=== PATIENT | female | born 2000 | race Caucasian/White ===

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

== ENCOUNTER → 2019-11-06 15:19 | Outpatient (CLI) | payer BC, SELFPAY ==
[2019-11-06 18:45] LABS: HCG,Quantitative 338 mIU/ml (0-5.42)
== END ==
PROVIDERS: PCP Physician Assistant; Visit Provider Nurse Practitioner Obstetrics & Gynecology
DX: N92.6 Irregular menstruation, unspecified (principal)
CPT/HCPCS: 36415; 84702

== ENCOUNTER → 2019-12-12 11:00 | Outpatient (CLI) | payer BC, SELFPAY ==
[2019-12-12 12:41] LABS: Basophils % 0.3 % (0.1-2.0); Eosinophils # 0.1 K/mm3 (0.0-0.4); Hematocrit 39.4 % (37.0-47.0); Hemoglobin 13.1 g/dL (12.2-16.2); Lymphocytes # 1.8 K/mm3 (0.7-4.5); Lymphocytes % 16.6 % (10-50); Mean Corpuscular HGB Conc 33.3 g/dL (31.8-35.4); Mean Corpuscular Hemoglobin 29.8 pg (27.0-31.2); Mean Corpuscular Volume 89.3 fl (81-99); Mean Platelet Volume 7.8 fl (7.4-10.4); Monocytes # 0.6 K/mm3 (0.1-1.0); Monocytes % 5.5 % (1.7-9.3); Neutrophils # 8.2 K/mm3 (1.8-7.8); Neutrophils % 76.5 % (37.0-80.0); Platelet Count 286 K/mm3 (142-424); Red Blood Count 4.41 M/mm3 (4.20-5.40); Red Cell Distribution Width 12.3 % (11.5-17.5); White Blood Count 10.7 K/mm3 (4.5-13.0)
[2019-12-13 06:18] LABS: HIV Screen 4th Generation wRfx Non Reactive (Non Reactive)
[2019-12-14 09:23] LABS: Hepatitis B Surface Antigen Negative (Negative); Hepatitis C Antibody 0.1 s/co ratio (0.0-0.9); Rapid Plasma Reagin Ab Titer Non Reactive (NonRea<1:1); Rubella Antibodies, IgG <0.90 index (Immune >0.99)
[2019-12-14 09:24] LABS: Neisseria gonorrhoeae, NAA Negative (Negative)
== END ==
PROVIDERS: Visit Provider Nurse Practitioner Obstetrics & Gynecology
DX: Z34.90 Encounter for supervision of normal pregnancy, unspecified, unspecified trimester (principal)
CPT/HCPCS: 36415; 85025; 86592; 86703; 86762; 86850; 87340; 87380; 87491; 87591; G0432

== ENCOUNTER → 2019-12-19 10:06 | Outpatient (CLI) | payer BC, SELFPAY ==
--- NOTE | 2019-12-19 10:06 | US_ITS ---
PROCEDURE: US OB TRANSVAGINAL CLINICAL INDICATION: for dates after 12 weeks Early Ob ultrasound for dates COMPARISON: No exams were available for comparison FINDINGS: An intrauterine gestational sac is present with a pole with a crown-rump length of 3.47cm correlating to gestational age of 10weeks 3days. heart tones are present with an FHR of 167bpm. Yolk sac is noted. Unremarkable adnexa IMPRESSION: Live IUP at 10 weeks 3 days Estimated due date by Ultrasound is 07/13/2020 Dictated by: Jan Humphreys MD 12/19/2019 19:26 Electronically signed by Jan Humphreys MD in [place] 12/19/2019 19:26
== END ==
PROVIDERS: PCP Physician Assistant; Visit Provider Nurse Practitioner Obstetrics & Gynecology
DX: Z34.90 Encounter for supervision of normal pregnancy, unspecified, unspecified trimester (principal)
CPT/HCPCS: 76817

== ENCOUNTER → 2020-01-09 16:45 | Outpatient (CLI) | payer BC, SELFPAY ==
[2020-01-11 16:19] LABS: Covid-19 Nasal PCR Sendout Lex NOT DETECTED
== END ==
PROVIDERS: Visit Provider Nurse Practitioner Obstetrics & Gynecology
DX: R50.9 Fever, unspecified (principal); Z3A.13 13 weeks gestation of pregnancy
CPT/HCPCS: U0004

== ENCOUNTER → 2020-02-07 11:40 | Outpatient (CLI) | payer BC, SELFPAY ==
[2020-02-13 11:13] LABS: AFP Value 47.3 ng/mL (.); DIA MoM 0.94 (.); DIA Value 161.22 pg/mL (.); DSR (Second Trimester) 1 IN 10000 (.); Gest. Age on Collection Date 17.6 WEEKS (.); Maternal Age At EDD 21.3 yr (.); OSBR Risk 1 IN 8106 (.); Results Report (.); hCG MoM 1.91 (.); hCG Value 61279 mIU/mL (.); uE3 MoM 1.49 (.); uE3 Value 1.92 ng/mL (.)
[2020-02-13 11:39] LABS: Gestat. Age Based On EDD (.)
== END ==
PROVIDERS: Visit Provider Nurse Practitioner Obstetrics & Gynecology
DX: Z34.90 Encounter for supervision of normal pregnancy, unspecified, unspecified trimester (principal); Z3A.17 17 weeks gestation of pregnancy
CPT/HCPCS: 36415; 82106

== ENCOUNTER → 2020-02-28 12:59 | Outpatient (CLI) | payer BC, MEDICAID, SELFPAY ==
--- NOTE | 2020-02-28 13:00 | US_ITS ---
PROCEDURE: US OB /MATERNAL DETAIL CLINICAL INDICATION: 20 weeks gestation Twenty week anatomy exam COMPARISON: US OB TRANSVAGINAL from 12/19/2019 FINDINGS: There is a single live fetus which is in breech presentation. heart and body motion is noted within FHR of 155 BPM. The placenta is anterior and grade 1. No previa or abruption. The cervix is closed and measures 3 cm Complete survey performed and was unremarkable on the submitted images as in PACS. No discrete anomalies identified on survey imaging by technologist. Active fetus. Three-vessel cord with satisfactory umbilical cord insertion. 4- chamber heart noted. Survey of brain & ventricles Unremarkable. Face and neck survey unremarkable. Diaphragm and chest views unremarkable. Abdomen: Both kidneys noted and unremarkable. Stomach noted and satisfactory. Spine: Survey of the spine satisfactory with no anomalies identified nor imaged. Both arms and legs noted. Amniotic Fluid: Adequate. Maternal adnexa: No significant findings. Measurements: Average ultrasound age 20weeks 3days. Gestational Age 20weeks 4days Estimated due date by ultrasound age 1107/14/2020. Estimated weight 350g BPD = 20weeks 3days OFD = 20weeks 4days HC = 19weeks 6days AC = 20weeks 3days FL = 20weeks 4days Growth Percentile= 35Percent% Heart Rate = 155bpm Cerebellum = 20weeks 1day Humerus = 20weeks 5days HC/AC is 1.13 CI is 0.78 FL/BPD is 0.71 FL/AC is 0.22 IMPRESSION: Live IUP in breech presentation with an average ultrasound age of 20 weeks 3 days. No obvious anomalies. Please see above for detail Dictated by: Jan Humphreys MD 02/29/2020 12:01 Electronically signed by Jan Humphreys MD in [place] 02/29/2020 12:01
== END ==
PROVIDERS: PCP Physician Assistant; Visit Provider Nurse Practitioner Obstetrics & Gynecology
DX: Z34.90 Encounter for supervision of normal pregnancy, unspecified, unspecified trimester (principal); Z3A.20 20 weeks gestation of pregnancy
CPT/HCPCS: 76811

== ENCOUNTER 2020-04-07 18:58 | Outpatient (CLI) | payer MEDICAID, SELFPAY ==
[2020-04-07 19:17] VITALS: BMI 25.9
[2020-04-07 19:29] LABS: Microscopic, Urine URINE MICROSCOPIC (MICROSCOPIC)
[2020-04-07 19:33] LABS: Appearance,Urine TURBID (Clear); Bilirubin,Urine Negative (Negative); Blood, Urine Negative (Negative); Color,Urine YELLOW (Yellow); Glucose,Urine (UA) Negative (Negative); Ketones,Urine Negative (Negative); Leukocyte Esterase,Urine 1+ (Negative); Nitrate,Urine Negative (Negative); Protein,Urine Negative (Negative); Urobilinogen,Urine 0.2 EU/dl (0.2)
[2020-04-07 19:38] VITALS: BP 118/70; PULSE 106; RESP 18; TEMP 37.1; O2SAT 97; BMI 25.9
[2020-04-07 19:41] LABS: Amorphous Sediment,Urine 3+ /lpf; Bacteria,Urine 1+ /lpf; Squamous Epithelial Cell,Urine 50-100 #/hpf (0-5); WBC,Urine Occasional #/hpf (0-3)
[2020-04-07 19:45] LABS: Barbiturates Screen,Urine Negative ng/ml (<200)
[2020-04-07 19:46] LABS: Amphetamine/Metha Screen,Urine Negative ng/ml (<1000); Benzodiazepines Screen,Urine Negative ng/ml (<200)
[2020-04-07 19:47] LABS: Cocaine Screen,Urine Negative ng/ml (<300)
[2020-04-07 19:48] LABS: Cannabinoid Screen,Urine Negative ng/ml (<50); Methadone Screen,Urine Negative ng/ml (<300)
[2020-04-07 19:49] LABS: Opiate Screen,Urine Negative ng/ml (<300)
[2020-04-07 19:50] LABS: Phencyclidine Screen,Urine Negative ng/ml (<25)
[2020-04-07 20:05] LABS: Fetal Fibronectin (Rapid) Negative (Negative)
== END 2020-04-07 20:19 | disposition home or self-care (01) ==
LOC: OBOUT 19:01 → OB 19:03
PROVIDERS: PCP Pediatrics; Visit Provider Nurse Practitioner Obstetrics & Gynecology
DX: O47.02 False labor before 37 completed weeks of gestation, second trimester (principal); Z3A.26 26 weeks gestation of pregnancy
CPT/HCPCS: 59025; 80305; 81001; 82731; 87086; G0463

== ENCOUNTER → 2020-04-18 10:56 | Outpatient (CLI) | payer MEDICAID, SELFPAY ==
[2020-04-18 12:23] LABS: Glucose,Fasting 85 mg/dl (74-100)
[2020-04-18 12:59] LABS: Glucose 1 Hour 131 mg/dL (74-100)
[2020-04-18 13:50] VITALS: BP 135/81; PULSE 68; RESP 20; TEMP 36.9; O2SAT 95
== END ==
PROVIDERS: Visit Provider Nurse Practitioner Obstetrics & Gynecology
DX: Z34.90 Encounter for supervision of normal pregnancy, unspecified, unspecified trimester (principal)
CPT/HCPCS: 36415; 82951; 96372; J2790

== ENCOUNTER 2020-04-23 05:19 | Outpatient (CLI) | payer BC, MEDICAID, SELFPAY ==
[2020-04-23 05:36] VITALS: BMI 25.9
[2020-04-23 06:27] VITALS: BP 89/54; PULSE 81; RESP 20; TEMP 36.8; O2SAT 98
[2020-04-23 06:28] VITALS: BMI 25.9
[2020-04-23 06:31] LABS: Microscopic, Urine URINE MICROSCOPIC (MICROSCOPIC)
[2020-04-23 06:39] LABS: Appearance,Urine SL CLOUDY (Clear); Bilirubin,Urine Negative (Negative); Blood, Urine TRACE-I (Negative); Color,Urine YELLOW (Yellow); Glucose,Urine (UA) Negative (Negative); Ketones,Urine Negative (Negative); Leukocyte Esterase,Urine 1+ (Negative); Nitrate,Urine Negative (Negative); Protein,Urine Negative (Negative); Urobilinogen,Urine 0.2 EU/dl (0.2)
[2020-04-23 06:47] LABS: Bacteria,Urine 1+ /lpf; RBC,Urine Occasional #/hpf (0-3)
[2020-04-23 06:48] LABS: Amorphous Sediment,Urine Trace /lpf
[2020-04-23 06:52] LABS: Benzodiazepines Screen,Urine Negative ng/ml (<200)
[2020-04-23 06:53] LABS: Amphetamine/Metha Screen,Urine Negative ng/ml (<1000)
[2020-04-23 06:54] LABS: Barbiturates Screen,Urine Negative ng/ml (<200); Cannabinoid Screen,Urine Negative ng/ml (<50)
[2020-04-23 06:55] LABS: Cocaine Screen,Urine Negative ng/ml (<300)
[2020-04-23 06:56] LABS: Methadone Screen,Urine Negative ng/ml (<300); Opiate Screen,Urine Negative ng/ml (<300)
[2020-04-23 06:57] LABS: Phencyclidine Screen,Urine Negative ng/ml (<25)
[2020-04-23 07:15] LABS: Coronavirus 19 IgG Antibody Negative (Negative); Coronavirus 19 IgM Antibody Negative (Negative)
--- NOTE | 2020-04-23 07:23 | US_ITS ---
PROCEDURE: US KIDNEY CLINICAL INDICATION: left abdominal/back pain Flank pain with vomiting and hematuria, 28 weeks COMPARISON: CT ABDPELW CT ABD PELVIS W/ CONTRAST from 06/02/2017 FINDINGS: The right kidney is [id number]. There is moderate to severe right-sided hydronephrosis and proximal hydroureter. There is a hyperechoic area in the lower pole possibly due to small stone but without significant shadowing. This measures 5 mm. The left kidney is [id number]. There is mild ectasia of the left renal collecting system in the lower pole. There is a hyperechoic area in the upper pole which could be due to small stone. This measures 5 mm. IMPRESSION: 1. Moderate to severe right hydronephrosis and proximal hydroureter with possible stone in the lower pole.. 2. Mild dilatation of the lower pole renal collecting system on the left with questionable stone in the upper pole Dictated by: Jan Humphreys MD 04/23/2020 09:01 Jan Humphreys MD in [place] 04/23/2020 09:01
[2020-04-23 07:53] LABS: Basophils % 0.1 % (0.1-2.0); Eosinophils # 0.1 K/mm3 (0.0-0.4); Eosinophils % 0.3 % (0.1-12.0); Hematocrit 32.6 % (37.0-47.0); Hemoglobin 11.1 g/dL (12.2-16.2); Lymphocytes # 1.4 K/mm3 (0.7-4.5); Lymphocytes % 8.7 % (10-50); Mean Platelet Volume 7.6 fl (7.4-10.4); Monocytes # 0.5 K/mm3 (0.1-1.0); Monocytes % 3.1 % (1.7-9.3); Neutrophils # 13.9 K/mm3 (1.8-7.8); Neutrophils % 87.8 % (37.0-80.0); Platelet Count 294 K/mm3 (142-424); Red Blood Count 3.58 M/mm3 (4.20-5.40); Red Cell Distribution Width 13.3 % (11.5-17.5); White Blood Count 15.8 K/mm3 (4.8-10.8)
[2020-04-23 07:55] LABS: MANUAL DIFFERENTIAL MANUAL DIFFERENTIAL (MANUAL DIFF)
[2020-04-23 07:56] LABS: Chloride 104 mmol/L (98-107); Sodium 137 mmol/L (136-145)
[2020-04-23 07:59] LABS: Blood Urea Nitrogen 3 mg/dl (7-17); Carbon Dioxide 25 mmol/L (22.0-30.0); Creatinine Clearance Estimated 199 mL/min (50-200); Estimated Glomerular Filt Rate 156 ml/min (>60); GFR (African American) 188 ML/MIN (>60)
[2020-04-23 08:00] VITALS: BP 110/68; PULSE 95; RESP 18; TEMP 36.9; O2SAT 96
[2020-04-23 08:00] LABS: Calcium 8.9 mg/dl (8.4-10.2); Glucose 108 mg/dl (74-100)
[2020-04-23 08:05] LABS: Lymphocytes % 12 % (10-50); Monocytes % 5 % (2-9); Neutrophils % 83 % (42-76); Platelet Estimate Normal; RBC Morphology Normal; Total Cells Counted 100
--- NOTE | 2020-04-23 09:43 | HMH.ACPN2 ---
Internal Medicine - PN: Subj *Date: 04/23/20 *Time: 09:43 Interval history: She is a 20-year-old 1 para 0 at 28 weeks gestational age. She woke up in the middle of the night with severe lower abdominal stomach pain followed by pain radiating down the left flank. She was quite nauseous and the pain did not let up. As result of that she came by ambulance to labor and delivery. Exam Vital signs and Labs for Last 24 Hours: Temp Pulse Resp BP Pulse Ox 98.5 F 95 H 18 110/68 96 04/23/20 08:00 04/23/20 08:00 04/23/20 08:00 04/23/20 08:00 04/23/20 08:00 Laboratory Results - last 24 hr 04/23/20 05:15: Urine Color Yellow, Urine Appearance Sl cloudy, Urine pH 7.0, Ur Specific [place] 1.020, Urine Protein Negative, Urine Glucose (UA) Negative, Urine Ketones Negative, Urine Blood Trace-i, Urine Nitrate Negative, Urine Bilirubin Negative, Urine Urobilinogen 0.2, Ur Leukocyte Esterase 1+ A, Urine RBC Occasional, Urine WBC 5-10, Ur Squamous Epith Cells 10-20, Amorphous Sediment Trace, Urine Bacteria 1+ 04/23/20 05:15: Urine Opiates Screen Negative, Urine Methadone Screen Negative, Ur Barbituates Screen Negative, Ur Phencyclidine Scrn Negative, Ur Amphetamines Screen Negative, U Benzodiazepines Scrn Negative, Urine Cocaine Screen Negative, U Marijuana (THC) Screen Negative 04/23/20 05:20: SARS-CoV-2 IgG Ab (Rapid) Negative, SARS-CoV-2 IgM Ab (Rapid) Negative 04/23/20 07:40: WBC 15.8 H, RBC 3.58 L, Hgb 11.1 L, Hct 32.6 L, MCV 91.0, MCH 31.0, MCHC 34.0, RDW 13.3, Plt Count 294, MPV 7.6, Neut % (Auto) 87.8 H, Lymph % (Auto) 8.7 L, [place] % (Auto) 3.1, Eos % (Auto) 0.3, Baso % (Auto) 0.1, Neut # (Auto) 13.9 H, Lymph # (Auto) 1.4, [place] # (Auto) 0.5, Eos # (Auto) 0.1, Baso # (Auto) 0.0, Total Counted 100, Neutrophils % (Manual) 83 H, Lymphocytes % (Manual) 12, Monocytes % (Manual) 5, Platelet Estimate Normal, RBC Morphology Normal 04/23/20 07:40: Sodium 137, Potassium 4.0, Chloride 104, Carbon Dioxide 25, Anion Gap 12.0, BUN 3 L, Creatinine 0.50 L, Estimated Creat Clear 199, Estimated GFR 156, Est GFR ( Amer) 188, Glucose 108 H, Calcium 8.9 I & O for Last 24 hours: Intake & Output 04/20/20 04/21/20 04/22/20 04/23/20 11:59 11:59 11:59 11:59 Weight 156 lb - Constitutional no acute distress - *Routine HEENT Exam Head: Present: normocephalic Eye: Present: EOMI, PERRL ENT: Present: mucous membranes moist - *Routine Neck Exam Present: supple. Absent: lymphadenopathy - *Routine Abdominal Exam Present: soft, normoactive bowel sounds. Absent: tenderness Assessment and Plan (1) Renal colic Current visit: Yes Status: Acute Category: Medical Code(s): N23 - Unspecified renal colic - Assessment and plan all Dx Assessment and Plan for all problems:: She has received some IV fluid as well as Zofran for her nausea. We gave her 1 dose of Stadol. Her pain is much improved. She had an ultrasound that showed some moderate right hydronephrosis with mild left hydronephrosis. It appeared that there were kidney stones in both kidneys but nothing in the ureters. Her urinalysis showed trace of blood as well as some sediment and 1+ leukocyte Estrace. We have given her 1 dose of Ancef. Blood work was essentially normal except her white blood cell count was 15.6. We will send her home on bedrest. She has a prescription for Zofran and we will start Macrobid for the next few days as well. I have given her a few Percocets as well for any severe pain that she has. She has an appointment with me next week. She will return if she has any further episodes of severe pain.
== END 2020-04-23 09:45 | disposition home or self-care (01) ==
LOC: OBOUT 05:23 → OB 05:25
PROVIDERS: PCP Physician Assistant; Visit Provider Nurse Practitioner Obstetrics & Gynecology
DX: O21.2 Late vomiting of pregnancy (principal); Z3A.28 28 weeks gestation of pregnancy; Z01.84 Encounter for antibody response examination; N23 Unspecified renal colic
CPT/HCPCS: 59025; 76770; 80048; 80305; 81001; 85007; 85025; 86328; 87086; 96365; 96367; G0463; J0595; J2405

== ENCOUNTER → 2020-06-11 13:00 | Outpatient (CLI) | payer MEDICAID, SELFPAY | PROVIDERS: Visit Provider Nurse Practitioner Obstetrics & Gynecology | DX: Z34.90 Encounter for supervision of normal pregnancy, unspecified, unspecified trimester (principal) | CPT/HCPCS: 86403 ==

== ENCOUNTER 2020-07-03 14:56 | Outpatient (CLI) | payer MEDICAID, SELFPAY ==
[2020-07-03 15:00] VITALS: BP 138/90; PULSE 84; RESP 18; TEMP 36.7; O2SAT 96; BMI 29.2
[2020-07-03 15:22] VITALS: BMI 29.2
[2020-07-03 15:27] LABS: Microscopic, Urine URINE MICROSCOPIC (MICROSCOPIC)
[2020-07-03 15:30] LABS: Appearance,Urine SL CLOUDY (Clear); Bilirubin,Urine Negative (Negative); Blood, Urine Negative (Negative); Color,Urine YELLOW (Yellow); Glucose,Urine (UA) Negative (Negative); Ketones,Urine Negative (Negative); Leukocyte Esterase,Urine 2+ (Negative); Nitrate,Urine Negative (Negative); PH,Urine 6.5 (5.0-8.5); Protein,Urine Negative (Negative); Specific Gravity, Urine 1.015 (1.005-1.030); Urobilinogen,Urine 0.2 EU/dl (0.2)
[2020-07-03 15:37] LABS: Fetal Membrane Rupture (Rapid) Negative (Negative)
[2020-07-03 15:40] LABS: Amorphous Sediment,Urine 1+ /lpf; Squamous Epithelial Cell,Urine 20-50 #/hpf (0-5)
[2020-07-03 15:43] LABS: Amphetamine/Metha Screen,Urine Negative ng/ml (<1000)
[2020-07-03 15:44] LABS: Barbiturates Screen,Urine Negative ng/ml (<200); Benzodiazepines Screen,Urine Negative ng/ml (<200)
[2020-07-03 15:45] LABS: Cannabinoid Screen,Urine Negative ng/ml (<50)
[2020-07-03 15:46] LABS: Cocaine Screen,Urine Negative ng/ml (<300); Methadone Screen,Urine Negative ng/ml (<300)
[2020-07-03 15:47] LABS: Opiate Screen,Urine Negative ng/ml (<300); Phencyclidine Screen,Urine Negative ng/ml (<25)
== END 2020-07-03 16:15 | disposition home or self-care (01) ==
LOC: OBOUT 14:57 → OB 14:59
PROVIDERS: Visit Provider Obstetrics & Gynecology
DX: O60.03 Preterm labor without delivery, third trimester (principal); Z3A.39 39 weeks gestation of pregnancy
CPT/HCPCS: 59025; 80305; 81001; 84112; 87077; 87086; 87088; G0463

== ENCOUNTER 2020-07-08 04:55 | Inpatient (IN) | payer MEDICAID, SELFPAY ==
[2020-07-08 05:16] VITALS: BMI 29.2
[2020-07-08 05:39] LABS: Microscopic, Urine URINE MICROSCOPIC (MICROSCOPIC)
[2020-07-08 05:39] LABS: Basophils % 0.2 % (0.1-2.0); Eosinophils # 0.1 K/mm3 (0.0-0.4); Eosinophils % 0.6 % (0.1-12.0); Hemoglobin 10.7 g/dL (12.2-16.2); Red Cell Distribution Width 13.2 % (11.5-17.5)
[2020-07-08 05:43] LABS: Appearance,Urine SL CLOUDY (Clear); Bilirubin,Urine Negative (Negative); Blood, Urine TRACE-I (Negative); Color,Urine YELLOW (Yellow); Glucose,Urine (UA) Negative (Negative); Ketones,Urine Negative (Negative); Leukocyte Esterase,Urine Negative (Negative); Nitrate,Urine Negative (Negative); Protein,Urine 1+ (Negative); Specific Gravity, Urine >= 1.030 (1.005-1.030); Urobilinogen,Urine 0.2 EU/dl (0.2)
[2020-07-08 05:43] LABS: Hematocrit 33.7 % (37.0-47.0); Lymphocytes % 17.2 % (10-50); Mean Corpuscular HGB Conc 31.7 g/dL (31.8-35.4); Mean Corpuscular Hemoglobin 27.8 pg (27.0-31.2); Mean Corpuscular Volume 87.7 fl (81-99); Mean Platelet Volume 8.8 fl (7.4-10.4); Monocytes # 0.6 K/mm3 (0.1-1.0); Monocytes % 5.3 % (1.7-9.3); Neutrophils % 76.6 % (37.0-80.0); Platelet Count 293 K/mm3 (142-424); Red Blood Count 3.84 M/mm3 (4.20-5.40); White Blood Count 11.8 K/mm3 (4.8-10.8)
[2020-07-08 05:46] LABS: Mucus,Urine 1+ /lpf; Squamous Epithelial Cell,Urine 20-50 #/hpf (0-5)
[2020-07-08 05:52] VITALS: BP 139/87; PULSE 87; RESP 18; TEMP 36.9; O2SAT 97; BMI 30.2
[2020-07-08 05:56] LABS: Barbiturates Screen,Urine Negative ng/ml (<200)
[2020-07-08 05:57] LABS: Amphetamine/Metha Screen,Urine Negative ng/ml (<1000)
[2020-07-08 05:58] LABS: Cocaine Screen,Urine Negative ng/ml (<300); Methadone Screen,Urine Negative ng/ml (<300)
[2020-07-08 05:59] LABS: Cannabinoid Screen,Urine Negative ng/ml (<50)
[2020-07-08 06:00] LABS: Opiate Screen,Urine Negative ng/ml (<300); Phencyclidine Screen,Urine Negative ng/ml (<25)
[2020-07-08 06:06] LABS: Coronavirus 19 IgG Antibody Negative (Negative); Coronavirus 19 IgM Antibody Negative (Negative)
[2020-07-08 06:09] LABS: Benzodiazepines Screen,Urine Negative ng/ml (<200)
--- NOTE | 2020-07-08 07:31 | HMH.PHAINT ---
MEDICATION RECONCILIATION COMPLETED ON PATIENT USING EXTERNAL FILL HISTORY FROM PHARMACY. -SHOAIB BUENO, DOUGLASD
[2020-07-08 07:59] VITALS: BP 126/66; PULSE 77; RESP 18; TEMP 36.6; O2SAT 97
--- NOTE | 2020-07-08 08:35 | HMH.OBAPHP ---
OB - H&P: HPI Antepartum - History of Present Illness Chief complaint: She has been having pressure and contractions History of present illness: She is a 20-year-old 1 para 0 at 39+4 weeks gestational age. She is been having pressure and occasional contractions. She was found to be 3+ centimeters in my office. As result of that we are planning to induce her labor at term. - History of Present Criteria for establishing EDC:: LMP confirmed by 1st trimester US care: good care Ultrasounds: normal 1st trimester US, normal mid trimester US Obstetrical complications: none Medical complications: none - Labs GBS status: negative [facility] History I have reviewed the patient's past medical history: Yes Medical History: Reports:: Kidney Stones, Urinary Tract Infection *Have you ever received a pneumonia vaccine?: No *Have you received a flu vaccine this season?: Yes (3 WEEKS AGO) Laterality Cases: Bilateral: Myringotomy (Ear Tubes), Tonsillectomy Other Surgeries: Yes: Appendectomy. No: Amputation: No Fractures: No - *Social History Smoking Status: Never smoker Alcohol Intake: never Alcohol Intake Frequency:: other Substance Use Type: denies use *Occupational Status:: employed *Travel in the last 8 weeks: None Family Hx:: Diabetes, Hypertension, Cancer Para: 0 Review of Systems - Review of Systems Review of systems:: pertinent systems reviewed and negative unless documented below Meds Home Medications Medication Instructions Recorded Confirmed Type Fluoxetine HCl 10 mg PO DAILY 07/08/20 07/08/20 History Allergies Allergy/AdvReac Type Severity Reaction Status Date / Time azithromycin Allergy Intermediate Hives Verified 07/04/20 11:50 OB - H&P: Exam - Physical Exam Vital signs: Temp Pulse Resp BP Pulse Ox 98.5 F 87 18 139/87 97 07/08/20 05:52 07/08/20 05:52 07/08/20 05:52 07/08/20 05:52 07/08/20 05:52 - Constitutional no acute distress - Routine HEENT Exam Head: Present: normocephalic Eye: Present: EOMI, PERRL ENT: Present: mucous membranes moist - Routine Neck Exam Present: supple, full ROM - Routine Respiratory Exam Absent: accessory muscle use (good air entry bilaterally), respiratory distress, wheezes, crackles - Routine Cardiovascular Exam Present: RRR. Absent: murmur - Routine Abdominal Exam Present: soft, normoactive bowel sounds. Absent: tenderness, distended, guarding - Routine Rectal Exam Patient deferred: visual exam, digital exam - Routine Exam Patient deferred: external exam, groin exam, perineal exam - Routine Extremities Exam Present: full ROM. Absent: cyanosis, edema - Routine Skin Exam Present: intact. Absent: cyanosis - Routine Neurological Exam Present: alert, oriented X3 - Routine Psychiatric Exam Present: normal affect OB - Results - Labs Labs: Short CBC 07/08/20 Range/Units 05:30 WBC 11.8 H (4.8-10.8) K/mm3 Hgb 10.7 L (12.2-16.2) g/dL Hct 33.7 L (37.0-47.0) % Plt Count 293 (142-424) K/mm3 Urine 07/08/20 Range/Units 05:25 Urine Color Yellow (Yellow) Urine Appearance Sl cloudy (Clear) Urine pH 6.0 (5.0-8.5) Ur Specific [place] >= 1.030 (1.005-1.030) Urine Protein 1+ (Negative) Urine Glucose (UA) Negative (Negative) OB - A/P Antepartum (1) Normal delivery Status: Acute - Additional Plan Planning to breastfeed?: Yes Plan: induction Additional Information:: She is 4 cm and we have ruptured membranes. We will expect a vaginal delivery.
--- NOTE | 2020-07-08 08:37 | HMH.LABNOT ---
Labor Note - Subjective: Date: 07/08/20 Time: 08:37 regular contraction - Objective: NST:: Reactive Contractions:: every 2-3 minutes Cervical Dilation:: 4 Effacement:: 90% Membranes: artificially ruptured - Fetus: Monitoring?: Yes monitoring type:: External - Assessment: Patient Problems: All Active Problems Renal colic (Acute) Normal delivery (Acute) (Acute) - Plan: Anesthesia for epidural?: Yes Continue to labor down?: Yes Plan for ?: No Continue to monitor?: Yes Start pushing?: No Comment:: I ruptured her membranes and there was clear fluid.
--- NOTE | 2020-07-08 09:28 | HMH.ANESCL ---
[facility] Anesthesia Checklist - Structural Data Admitted From: Inpatient Planned Operative Procedure/s: labor epidural Consent for Planned Operative Procedure(s) Verified: Yes - Airway Assessment C-Spine Mobility Assessed: Yes TMJ Mobility Assessed: Yes Dentition: Good Dentition - Neurological Assessment Level of Consciousness: Awake, Alert, Appropriate - Anesthesia Plan Anesthesia Risk discussed: Yes Anesthesia Plan: Verified ASA Class: II Anesthesia Type: Epidural [facility] History I have reviewed the patient's past medical history: Yes Medical History: Reports:: Kidney Stones, Urinary Tract Infection *Have you ever received a pneumonia vaccine?: No *Have you received a flu vaccine this season?: Yes (3 WEEKS AGO) Anesthesia experience/problems:: none Laterality Cases: Bilateral: Myringotomy (Ear Tubes), Tonsillectomy Other Surgeries: Yes: Appendectomy. No: Amputation: No Fractures: No - *Social History Smoking Status: Never smoker Alcohol Intake: never Alcohol Intake Frequency:: other Substance Use Type: denies use *Occupational Status:: employed *Travel in the last 8 weeks: None Family Hx:: Diabetes, Hypertension, Cancer Para: 0
--- NOTE | 2020-07-08 10:43 | HMH.LABNOT ---
Labor Note - Subjective: Date: 07/08/20 Time: 10:43 regular contraction - Objective: NST:: Reactive Contractions:: every 2-3 minutes Cervical Dilation:: 6 Effacement:: 100% Station: 0 - Fetus: Monitoring?: Yes monitoring type:: External - Assessment: Labor progressing?: Yes Cephalopelvic disproportion?: No Patient Problems: All Active Problems Renal colic (Acute) Normal delivery (Acute) (Acute) - Plan: Anesthesia for epidural?: Yes Continue to labor down?: Yes Plan for ?: No Continue to monitor?: Yes Start pushing?: No
--- NOTE | 2020-07-08 13:58 | HMH.LABNOT ---
Labor Note - Subjective: Date: 07/08/20 Time: 13:40 regular contraction - Objective: Contractions:: every 2-3 minutes Cervical Dilation:: 9-10 Effacement:: 100% Station: 0 - Fetus: Monitoring?: Yes monitoring type:: External - Assessment: Labor progressing?: Yes Patient Problems: All Active Problems Renal colic (Acute) Normal delivery (Acute) (Acute) - Plan: Anesthesia for epidural?: Yes Continue to labor down?: Yes Plan for ?: No Continue to monitor?: Yes Start pushing?: No
[2020-07-08 15:57] LABS: Cord Blood PH 7.34 (7.35-7.45)
--- NOTE | 2020-07-08 16:03 | P.PCN_ITS ---
- Delivery Note Delivery Date:: 07/08/20 Delivery Time:: 15:41 Anesthesia Type: Epidural Was labor medically induced?: Yes Induction method: per pitocin protocol Gestational age (weeks): 39 delivered prior to 39 weeks?: No Gender: Female at 1 minute: 8 at 5 minutes: 10 LAC or MLE?: LAC Delivery Procedure:: She is a 20-year-old 1 now para 0 at 39 weeks gestational age. She was feeling lots of pressure and occasional contractions so we elected to induce her labor at term. She was started on IV oxytocin had her membranes ruptured. Under labor epidural she progressed to full dilation and delivered spontaneously a liveborn female c hild at 3:41 PM in the afternoon of July 08, 2020. On deliver the head the anterior shoulder then delivered atraumatically. The baby was stimulated and the oropharynx and nasopharynx were bulb suctioned. The baby cried spontaneously. The baby was vigorous so we allowed the cord to continue to pulsate for approximately 1 minute. The cord was then doubly clamped and cut and the infant was placed on the mother's abdomen for further care. The nurses assigned Apgars of 8 at 1 minute and 10 at 5 minutes. We then obtained cord blood as well as cord pH. She received IV oxytocin and using gentle traction the cord and countertraction on the fundus I was able to easily deliver the placenta intact. He had a normal three-vessel cord. She has a small first-degree vaginal posterior laceration that was repaired with interrupted 3-0 Vicryl Rapide suture. Estimated blood loss was approximately 300 cc. She plans to breast-feed. Laceration:: vaginal Placental Delivery Description: Spontaneous
[2020-07-08 20:00] VITALS: BP 137/73; PULSE 70; RESP 18; TEMP 36.9; O2SAT 97
[2020-07-09 03:53] VITALS: BP 132/75; PULSE 96; RESP 18; TEMP 36.8; O2SAT 96
[2020-07-09 08:21] LABS: Hematocrit 30.7 % (37.0-47.0); Hemoglobin 9.9 g/dL (12.2-16.2)
--- NOTE | 2020-07-09 12:50 | HMH.ACPN2 ---
Internal Medicine - PN: Subj *Date: 07/09/20 *Time: 12:50 Interval history: PPD #1 No unusual complaints Ambulating and voiding without difficulty Asymptomatic with anemia; taking ferrous sulfate Tolerating regular diet Exam Vital signs and Labs for Last 24 Hours: Temp Pulse Resp BP Pulse Ox 98.2 F 96 H 18 132/75 96 07/09/20 03:53 07/09/20 03:53 07/09/20 03:53 07/09/20 03:53 07/09/20 03:53 Laboratory Results - last 24 hr 07/08/20 05:30: Antibody Screen Negative 07/08/20 15:54: Cord ABG pH 7.34 L 07/09/20 06:59: Hgb 9.9 L, Hct 30.7 L I & O for Last 24 hours: Intake & Output 07/07/20 07/08/20 07/09/20 07/10/20 11:59 11:59 11:59 11:59 Weight 176 lb Narrative: CONSTITUTIONAL: no acute distress HEENT: mucous membranes moist PULMONARY: breathing unlabored without audible wheezes CV: no tachycardia or visible JVD; normal LE peripheral pulses ABD: soft, NT/ND, no guarding : fundus firm at/below umbilicus SKIN: no visible rash or lesions EXT: 1+ edema LEs NEURO: alert/oriented, no altered mental status PSYCH: appropriate mood and demeanor without visible anxiety/depression Assessment and Plan (1) Normal delivery Status: Acute Category: Medical Code(s): O80 - Encounter for full-term uncomplicated delivery - Assessment and plan all Dx Assessment and Plan for all problems:: Routine care PNV with ferrous sulfate Anticipate discharge home tomorrow
[2020-07-09 20:23] VITALS: BP 122/79; PULSE 83; RESP 18; TEMP 36.9; O2SAT 97
[2020-07-10 04:44] VITALS: BP 121/71; PULSE 62; RESP 16; TEMP 36.8; O2SAT 98
--- NOTE | 2020-07-10 11:43 | P.DS_ITS ---
General - General Admission date:: 07/08/20 Discharge date: 07/10/20 Hospital Course Hospital Course: Normal vaginal delivery course uncomplicated Ambulating and voiding without difficulty Tolerating regular diet Asymptomatic with [id number] anemia Elevated score on depression scale and has a history of depression Previous medical management with prozac, which patient elected to discontinue approximately 4 weeks prior to delivery Reason for discontinuation was that she didn't feel that she needed medication She has been counseled about depression and her increased risk with a history of depression She declines medical therapy at this time but has a current prozac prescription if she decides to resume this therapy Precautions advised to patient and FOB Objective Vital signs: Temp Pulse Resp BP Pulse Ox 98.2 F 62 16 121/71 98 07/10/20 04:44 07/10/20 04:44 07/10/20 04:44 07/10/20 04:44 07/10/20 04:44 Narrative: CONSTITUTIONAL: no acute distress HEENT: mucous membranes moist PULMONARY: breathing unlabored without audible wheezes CV: no tachycardia or visible JVD; normal LE peripheral pulses ABD: soft, NT/ND, no guarding : fundus firm at/below umbilicus SKIN: no visible rash or lesions EXT: 1+ edema LEs NEURO: alert/oriented, no altered mental status PSYCH: appropriate mood and demeanor without visible anxiety/depression Results Labs on day of discharge: Labs from last 24 hours 07/08/20 05:30 Blood Type O Positive Antibody Screen Negative DS: Diagnosis - Discharge Diagnosis (1) Normal delivery Status: Acute (2) Acute blood loss anemia Status: Acute (3) Depression Status: Acute Discharge Plan - Patient Discharge Instructions ACTIVITY: Continue current activity DIET: regular diet Additional Instructions: No heavy lifting, no strenuous activity and nothing in the vagina for 6 weeks. Patient Instructions: Depression, Hemorrhage, DI for Labor and Delivery, Vaginal , DI for Pre-eclampsia, [facility] Post Discharge Instructions, Preventing the Spread of Coronavirus Discharge Instructions - Follow up Plan Follow up with: Saeid Vila MD [Staff Physician] - Disposition: Home, Self-Longterm Medications: Home Medications Medication Instructions Recorded Confirmed Type Fluoxetine HCl 10 mg PO DAILY 07/08/20 07/08/20 History Prescriptions/Medication Reconciliation: New Ibuprofen [Motrin 400mg tablet] 800 mg PO Q6HP PRN tablet PRN Reason: Mild To Moderate Pain Acetaminophen [Acetaminophen 325mg tab] 650 mg PO Q4HP PRN tablet PRN Reason: Mild Pain Continued Fluoxetine HCl 10 mg PO DAILY - Problem Reconciliation Problems Reviewed?: Yes
== END 2020-07-10 14:08 | disposition home or self-care (01) | DRG 807 ==
PROVIDERS: Admitting Provider Nurse Practitioner Obstetrics & Gynecology; Visit Provider Nurse Practitioner Obstetrics & Gynecology
DX: O70.0 First degree perineal laceration during delivery (principal); Z37.0 Single live birth; Z3A.39 39 weeks gestation of pregnancy; O99.019 Anemia complicating pregnancy, unspecified trimester; D64.9 Anemia, unspecified; O99.340 Other mental disorders complicating pregnancy, unspecified trimester; F32.89 Other specified depressive episodes
CPT/HCPCS: 59409; 36415; 59025; 80305; 81001; 82800; 85014; 85018; 85025; 86328; 86850; 90707

== ENCOUNTER 2021-04-14 19:36 | Emergency (ER) | payer MEDICAID, SELFPAY ==
[2021-04-14 20:15] VITALS: BP 112/70; PULSE 78; RESP 16; TEMP 36.8; O2SAT 98; BMI 24.7
--- NOTE | 2021-04-14 20:31 | HMH.EDPREG ---
ED Disposition Clinical Impression: Miscarriage Disposition: Home, Self-Care Condition on Discharge: Good Instructions: DI for Miscarriage Additional Instructions: call ob in am Referrals: Provider,Referral, [Primary Care Provider] - - Critical Care Critical Care Time: No Attestation: On 04/14/21, the high probability of a clinically significant, sudden or life threatening deterioration of the following system(s) required my full and direct attention, intervention and personal management. The time I documented below is in addition to time spent performing reported procedures but includes the following listed in this critical care notation. Medical Decision Making - Medical Records Medical records reviewed: Yes: I reviewed the patient's medical records. - Tera Inquiry Pt receiving controlled substance: No Vital Signs: 04/14/21 20:15 Temperature 98.3 F Temperature Source Oral Pulse Rate [Right Brachial] 78 Respiratory Rate 16 Blood Pressure [Right Arm] 112/70 Blood Pressure Mean [Right Arm] 84 Blood Pressure Source [Right Arm] Automatic Cuff Blood Pressure Position [Right Arm] Sitting 02 Sat by Pulse Oximetry 98 Oxygen Delivery Method Room Air - Lab Data Lab results reviewed: Yes: I reviewed the patient's lab results. Lab Results 04/14/21 20:35: WBC 15.3 H, RBC 4.42, Hgb 13.1, Hct 39.6, MCV 89.7, MCH 29.6, MCHC 33.1, RDW 13.0, Plt Count 325, MPV 8.3, Neut % (Auto) 85.7 H, Lymph % (Auto) 9.5 L, [place] % (Auto) 4.1, Eos % (Auto) 0.4, Baso % (Auto) 0.3, Neut # (Auto) 13.1 H, Lymph # (Auto) 1.5, [place] # (Auto) 0.6, Eos # (Auto) 0.1, Baso # (Auto) 0.1 04/14/21 20:35: Sodium 138, Potassium 4.0, Chloride 103, Carbon Dioxide 25, Anion Gap 14.0, BUN 7, Creatinine 0.50 L, Estimated Creat Clear 177, Estimated GFR 154, Est GFR ( Amer) 187, Glucose 103 H, Calcium 9.1, Total Bilirubin 0.4, AST 24, ALT 12, Alkaline Phosphatase 89, Total Protein 7.6, Albumin 4.3, Globulin 3.3 H, Albumin/Globulin Ratio 1.3, HCG, Quant [id number] H 04/14/21 20:54: Blood Type O Positive Result diagrams: 04/14/21 20:35 04/14/21 20:35 Orders (Tests/Meds): ED MEDICATIONS Generic Name Dose Route Start Last Admin Trade Name Little PRN Reason Stop Dose Admin Lactated Ringer's 1,000 mls @ 999 mls/hr 04/14/21 20:30 04/14/21 20:33 Lactated Ringer's 1000 Ml Bag IV 04/14/21 21:30 999 mls/hr .Q1H1M HIEN Administration ORDERS Category Date Time Status Complete Blood Count Auto Diff Stat Lab 04/14/21 20:35 Results - Physician Consults Physician Consulted: ana Reason -: Pt condition - Reevaluation(s) Time: 22:05 Reevaluation #1: improved Medical Decision Narrative: improved and stable exam and labs HPI - General Chief complaint: Vaginal Bleeding Stated complaint: 10 weeks pregant, bleeding, cramps Time Seen by Provider: 04/14/21 20:31 Mode of Arrival: Family Vehicle Source of Information: Patient, Medical Record Limitations: No Limitations Description of Symptoms (Recalled from ER Triage Doc. by RN): pt seen by radio installer automobile and told that she had lost the baby at approx 6-8 weeks along and that her body had absorbed it but that her yolk was still growing . advised pt she should be prepared to pass blood clots, which she began doing today, however she is having to use a towel to keep the blood off her clothes. mentions being slightly dizzy with change in position - History of Present Illness HPI Narrative: pt reports missed ab from about 2 weeks ago and passing clot with crampy pain tonight - no fever or other c/o MD Complaint: vaginal bleeding Onset (ago): hour(s) Consistency: intermittent Location: pelvis Severity: moderate Associated symptoms: denies other symptoms Vaginal bleeding: clots : Yes Date of Last Menstrual Period: unk OB History - Current : other (miscariage ) care: followed by OB - Related Data Blood Type: O (+) positive : 2 Para: 1
[2021-04-14 20:47] LABS: Basophils # 0.1 K/mm3 (0-0.2); Basophils % 0.3 % (0.1-2.0); Eosinophils # 0.1 K/mm3 (0.0-0.4); Eosinophils % 0.4 % (0.1-12.0); Hematocrit 39.6 % (37.0-47.0); Hemoglobin 13.1 g/dL (12.2-16.2); Lymphocytes # 1.5 K/mm3 (0.7-4.5); Lymphocytes % 9.5 % (10-50); Mean Corpuscular HGB Conc 33.1 g/dL (31.8-35.4); Mean Corpuscular Hemoglobin 29.6 pg (27.0-31.2); Mean Corpuscular Volume 89.7 fl (81-99); Mean Platelet Volume 8.3 fl (7.4-10.4); Monocytes # 0.6 K/mm3 (0.1-1.0); Monocytes % 4.1 % (1.7-9.3); Neutrophils # 13.1 K/mm3 (1.8-7.8); Neutrophils % 85.7 % (37.0-80.0); Platelet Count 325 K/mm3 (142-424); Red Blood Count 4.42 M/mm3 (4.20-5.40); White Blood Count 15.3 K/mm3 (4.8-10.8)
[2021-04-14 20:52] LABS: Chloride 103 mmol/L (98-107); Sodium 138 mmol/L (136-145)
[2021-04-14 20:54] LABS: MANUAL DIFFERENTIAL MANUAL DIFFERENTIAL (MANUAL DIFF)
[2021-04-14 20:55] LABS: Alanine Aminotransferase 12 U/L (12-78); Albumin Level 4.3 g/dl (3.5-5.0); Albumin/Globulin Ratio 1.3 (1.1-1.8); Alkaline Phosphatase 89 U/L (38-126); Aspartate Amino Transferase 24 U/L (14-36); Bilirubin,Total 0.4 mg/dl (0.2-1.3); Blood Urea Nitrogen 7 mg/dl (7-17); Carbon Dioxide 25 mmol/L (22.0-30.0); Creatinine Clearance Estimated 177 mL/min (50-200); Estimated Glomerular Filt Rate 154 ml/min (>60); GFR (African American) 187 ML/MIN (>60); Globulin 3.3 g/dL (1.3-3.2); Total Protein,Serum 7.6 g/dl (6.3-8.2)
[2021-04-14 20:56] LABS: Calcium 9.1 mg/dl (8.4-10.2); Glucose 103 mg/dl (74-100)
[2021-04-14 21:12] LABS: HCG,Quantitative 13273 mIU/ml (0-5.42)
--- NOTE | 2021-04-14 21:55 | PC.NURSE ---
Dr. Vazquez management professionals for Dr. Pratt he has been paged
--- NOTE | 2021-04-14 22:04 | PC.NURSE ---
Dr. Paredes speaking to Dr. Vazquez
[2021-04-14 22:27] VITALS: BP 112/70; PULSE 78; RESP 16; TEMP 36.8; O2SAT 98
[2021-04-14 23:01] LABS: Lymphocytes % 10 % (10-50); Neutrophils % 90 % (42-76); Platelet Estimate Normal; RBC Morphology Normal; Total Cells Counted 100
== END 2021-04-14 22:31 | disposition home or self-care (01) ==
PROVIDERS: Emergency Provider Emergency Medicine
DX: O03.9 Complete or unspecified spontaneous abortion without complication (principal)
CPT/HCPCS: 36415; 80053; 84702; 85007; 85025; 86900; 86901; 99282

== ENCOUNTER → 2021-11-26 16:06 | Outpatient (CLI) | payer MEDICAID, SELFPAY ==
[2021-11-26 17:57] LABS: HCG,Quantitative 1080 mIU/ml (0-5.42)
== END ==
PROVIDERS: Visit Provider Obstetrics & Gynecology
DX: Z32.00 Encounter for pregnancy test, result unknown (principal)
CPT/HCPCS: 36415; 84702

== ENCOUNTER 2021-11-28 21:26 | Observation (INO) | payer MEDICAID, SELFPAY ==
[2021-11-28 21:28] VITALS: RESP 20; O2SAT 100; BMI 23.6
[2021-11-28 21:46] VITALS: BP 128/77; PULSE 93; RESP 20; O2SAT 97
[2021-11-28 21:51] LABS: Microscopic, Urine URINE MICROSCOPIC (MICROSCOPIC)
--- NOTE | 2021-11-28 21:52 | US_ITS ---
PROCEDURE INFORMATION: Exam: US , Transvaginal Exam date and time: 11/28/2021 10:36 PM Age: 21 years old Clinical indication: Gestational age or lmp: 10/13/2021; ; Patient HX: Pelvis pain beta levels dropping; Additional info: Pelvis pain TECHNIQUE: Imaging protocol: Real-time transvaginal obstetrical ultrasound of the maternal pelvis with image documentation. Transvaginal imaging was used for better evaluation of the fetus, adnexa, and/or cervix. COMPARISON: US OB /MATERNAL DETAIL 02/28/2020 1:08 PM FINDINGS: Gestation: No intrauterine gestation detected. heart rate: There are pulsations in the complex fluid near the right ovarian cyst which are distinct from a maternal cardiac activity. MATERNAL: Right ovary/adnexa: Right ovary 6.9 x 5.3 x 5.6 cm. Large debris filled right ovarian cyst measures 4.1 x 3.7 cm. Peristalsing bowel is present around the right ovary. Left ovary/adnexa: Normal-appearing left ovary is identified 3.7 x 1.9 by 3.7 cm. Intraperitoneal space: There is complex free fluid in the pelvis adjacent to the right ovary. Possibility of peritoneal gestation versus recently ruptured ectopic gestation should be considered. Pelvic MRI may be of further diagnostic value. IMPRESSION: 1. No intrauterine . 2. Ectopic gestation is the diagnosis of exclusion. 3. Left adnexa appears normal. No left-sided ectopic gestation is detected. 4. Right adnexa is abnormal with a large complex cyst with surrounding complex fluid as well as a pulsatile area in the complex fluid. Concern for ruptured right ectopic gestation versus peritoneal gestation.
[2021-11-28 21:55] LABS: Appearance,Urine CLOUDY (Clear); Bilirubin,Urine Negative (Negative); Blood, Urine Negative (Negative); Color,Urine YELLOW (Yellow); Glucose,Urine (UA) Negative (Negative); Ketones,Urine TRACE (Negative); Leukocyte Esterase,Urine Negative (Negative); Nitrate,Urine Negative (Negative); Protein,Urine TRACE (Negative)
--- NOTE | 2021-11-28 21:58 | HMH.EDUROGF ---
ED Disposition Clinical Impression: Ectopic Qualifiers: Location of ectopic : tubal Intrauterine status: without intrauterine Laterality: right Qualified Code(s): O00.101 - Right tubal without intrauterine Disposition: Admitted As Inpatient Condition on Discharge: Good Instructions: DI for Acute Abdominal Pain Referrals: Provider,[place], [Primary Care Provider] - Saeid Vila MD [Staff Physician] - - Critical Care Critical Care Time: No Attestation: On 11/28/21, the high probability of a clinically significant, sudden or life threatening deterioration of the following system(s) required my full and direct attention, intervention and personal management. The time I documented below is in addition to time spent performing reported procedures but includes the following listed in this critical care notation. Medical Decision Making - Medical Records Medical records reviewed: Yes: I reviewed the patient's medical records. - Tera Inquiry Pt receiving controlled substance: No Vital Signs: 11/28/21 21:28 11/28/21 21:46 Pulse Rate 93 H Respiratory Rate 20 20 Blood Pressure 128/77 Blood Pressure Source Automatic Cuff Blood Pressure Position Supine 02 Sat by Pulse Oximetry 100 97 Oxygen Delivery Method Room Air Room Air - Lab Data Lab results reviewed: Yes: I reviewed the patient's lab results. Lab Results 11/28/21 21:30: Urine Color Yellow, Urine Appearance Cloudy, Urine pH 8.0, Ur Specific [place] 1.020, Urine Protein Trace, Urine Glucose (UA) Negative, Urine Ketones Trace, Urine Blood Negative, Urine Nitrate Negative, Urine Bilirubin Negative, Urine Urobilinogen 2.0, Ur Leukocyte Esterase Negative, Ur Squamous Epith Cells 20-50, Urine Mucus 4+ 11/28/21 22:00: WBC 8.3, RBC 4.45, Hgb 13.1, Hct 39.6, MCV 89.0, MCH 29.4, MCHC 33.1, RDW 14.1, Plt Count 242, MPV 9.7, Neut % (Auto) 69.9, Lymph % (Auto) 16.4, [place] % (Auto) 9.3, Eos % (Auto) 1.8, Baso % (Auto) 2.5 H, Neut # (Auto) 5.8, Lymph # (Auto) 1.4, [place] # (Auto) 0.8, Eos # (Auto) 0.2, Baso # (Auto) 0.2 04/16/22 22:00: HCG, Quant 812 H 11/28/21 22:00: Sodium 136, Potassium 3.8, Chloride 101, Carbon Dioxide 26, Anion Gap 12.8, BUN 12, Creatinine 0.60, Estimated Creat Clear 145, Estimated GFR 125, Est GFR ( Amer) 151, Glucose 100, Calcium 8.8, Total Bilirubin 0.9, AST 29, ALT 16, Alkaline Phosphatase 72, C-Reactive Protein 25.5 H, Total Protein 7.7, Albumin 4.5, Globulin 3.2, Albumin/Globulin Ratio 1.4 11/28/21 22:00: ESR 19 11/28/21 22:00: Procalcitonin 0.111 Result diagrams: 11/28/21 22:00 11/28/21 22:00 Orders (Tests/Meds): ED MEDICATIONS Discontinued Medications Generic Name Dose Route Start Last Admin Trade Name Freq PRN Reason Stop Dose Admin Lactated Ringer's 1,000 mls @ 999 mls/hr 11/28/21 22:00 Lactated Ringer's 1000 Ml Bag IV 11/28/21 23:00 .Q1H1M HIEN - US Data US Images: Pelvis ED US Reviewed: Yes: I discussed the US results w/the radiologist, I have viewed radiologist's interpretation Findings Narrative: positive ectopic rt - Physician Consults Physician Consulted: dioni Reason -: Admission, Pt condition Medical Decision Narrative: has positive ectopic preg and gudelia go to surg Female Urogenital HPI - General Chief complaint: Abdominal Pain Stated complaint: Preg with lots of pain and presure Time Seen by Provider: 11/28/21 21:58 Mode of Arrival: Ambulatory Source of Information: Patient, Significant Other, Medical Record Limitations: No Limitations Description of Symptoms (Recalled from ER Triage Doc. by RN): Patient states she was diganosed on tuesday with UTI also found out she was , does not know how far along she is. Started antibiotic on tuesday, having lower pelvic pressure since tuesday. - History of Present Illness HPI Narrative: recent uti and dx preg and now has progressive pain rt pelvis w/o vag blee
[2021-11-28 22:00] LABS: Mucus,Urine 4+ /lpf; Squamous Epithelial Cell,Urine 20-50 #/hpf (0-5)
[2021-11-28 22:11] LABS: Basophils # 0.2 K/mm3 (0-0.2); Basophils % 2.5 % (0.1-2.0); Eosinophils # 0.2 K/mm3 (0.0-0.4); Eosinophils % 1.8 % (0.1-12.0); Hematocrit 39.6 % (37.0-47.0); Hemoglobin 13.1 g/dL (12.2-16.2); Lymphocytes # 1.4 K/mm3 (0.7-4.5); Lymphocytes % 16.4 % (10-50); Mean Corpuscular HGB Conc 33.1 g/dL (31.8-35.4); Mean Corpuscular Hemoglobin 29.4 pg (27.0-31.2); Mean Platelet Volume 9.7 fl (7.4-10.4); Monocytes # 0.8 K/mm3 (0.1-1.0); Monocytes % 9.3 % (1.7-9.3); Neutrophils # 5.8 K/mm3 (1.8-7.8); Neutrophils % 69.9 % (37.0-80.0); Platelet Count 242 K/mm3 (142-424); Red Blood Count 4.45 M/mm3 (4.20-5.40); Red Cell Distribution Width 14.1 % (11.5-17.5); White Blood Count 8.3 K/mm3 (4.8-10.8)
[2021-11-28 22:21] LABS: Alanine Aminotransferase 16 U/L (12-78); Albumin Level 4.5 g/dl (3.5-5.0); Albumin/Globulin Ratio 1.4 (1.1-1.8); Alkaline Phosphatase 72 U/L (38-126); Anion Gap 12.8 mEq/L (5-15); Aspartate Amino Transferase 29 U/L (14-36); Bilirubin,Total 0.9 mg/dl (0.2-1.3); Blood Urea Nitrogen 12 mg/dl (7-17); Calcium 8.8 mg/dl (8.4-10.2); Carbon Dioxide 26 mmol/L (22.0-30.0); Chloride 101 mmol/L (98-107); Creatinine Clearance Estimated 145 mL/min (50-200); Estimated Glomerular Filt Rate 125 ml/min (>60); GFR (African American) 151 ML/MIN (>60); Globulin 3.2 g/dL (1.3-3.2); Glucose 100 mg/dl (74-100); Potassium 3.8 mmoL/L (3.5-5.1); Sodium 136 mmol/L (136-145); Total Protein,Serum 7.7 g/dl (6.3-8.2)
[2021-11-28 22:26] LABS: C-Reactive Protein 25.5 mg/L (0-4)
[2021-11-28 22:34] LABS: Erythrocyte Sedimentation Rate 19 mm/hr (0-20)
[2021-11-28 22:40] LABS: HCG,Quantitative 812 mIU/ml (0-5.42); Procalcitonin 0.111 ng/mL (0.0-2.0)
[2021-11-29] VITALS (17 sets, daily range): BP systolic 102–138; BP diastolic 52–85; PULSE 66–100; RESP 16–20; TEMP 36.7–37.1; O2SAT 96–99
--- NOTE | 2021-11-29 00:07 | PC.NURSE ---
Dr. Paredes s/w JENNIFERAD
--- NOTE | 2021-11-29 00:08 | PC.NURSE ---
Dr. Paredes on phone with JENNIFERAD
--- NOTE | 2021-11-29 00:08 | PC.NURSE ---
Dr. Julito pritchett for Dr. Paredes
--- NOTE | 2021-11-29 00:12 | PC.NURSE ---
Dr. Paredes on phone with Dr. Vila
--- NOTE | 2021-11-29 00:14 | PC.NURSE ---
surgery team called in
--- NOTE | 2021-11-29 00:16 | PC.NURSE ---
Paged surgery team
--- NOTE | 2021-11-29 00:23 | PC.NURSE ---
Obtained belly button ring, wedding and engagement ring from patient and placed into speciman cup and handed to the patients boyfriend.
[2021-11-29 00:26] LABS: Coronavirus 19, PCR Not Detected (NotDetected); Influenza A, PCR Not Detected (NotDetected); Influenza B, PCR Not Detected (NotDetected)
--- NOTE | 2021-11-29 00:42 | HMH.HP ---
*Admission Date: 11/29/21 *Chief complaint: Right lower quadrant pain *History of present illness: She is a 21-year-old 3 para 1 aborta 1 who had a quantitative beta-hCG about 2 days ago and it was at thousand and 80. She came into the ER this evening with increased pain and her beta hCG was only 812. She has no vaginal bleeding. Ultrasound shows a possible ectopic . As result of that she is admitted for treatment of ectopic . [facility] History I have reviewed the patient's past medical history: Yes Medical History: Reports:: Kidney Stones, Urinary Tract Infection *Have you ever received a pneumonia vaccine?: No *Have you received a flu vaccine this season?: No Laterality Cases: Bilateral: Myringotomy (Ear Tubes), Tonsillectomy Other Surgeries: Yes: Appendectomy. 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: Review of Systems - Review of Systems Review of systems:: pertinent systems reviewed and negative unless documented below - *Neurologic Denies seizure-like activity Meds Home Medications Medication Instructions Recorded Confirmed Type Fluoxetine HCl 10 mg PO DAILY 07/08/20 11/28/21 History Acetaminophen [Acetaminophen 325mg 650 mg PO Q4HP PRN tab 07/10/20 11/28/21 Rx tab] cephALEXin [cephALEXin 250mg 250 mg PO Q8H 11/28/21 11/28/21 History capsule] Allergies Allergy/AdvReac Type Severity Reaction Status Date / Time azithromycin Allergy Intermediate Hives Verified 08/20/20 13:52 Exam Vital signs and Labs for Last 24 Hours: Pulse Resp BP Pulse Ox 93 H 20 128/77 97 11/28/21 21:46 11/28/21 21:46 11/28/21 21:46 11/28/21 21:46 Laboratory Results - last 24 hr 11/28/21 21:30: Urine Color Yellow, Urine Appearance Cloudy, Urine pH 8.0, Ur Specific [place] 1.020, Urine Protein Trace, Urine Glucose (UA) Negative, Urine Ketones Trace, Urine Blood Negative, Urine Nitrate Negative, Urine Bilirubin Negative, Urine Urobilinogen 2.0, Ur Leukocyte Esterase Negative, Ur Squamous Epith Cells 20-50, Urine Mucus 4+ 11/28/21 22:00: WBC 8.3, RBC 4.45, Hgb 13.1, Hct 39.6, MCV 89.0, MCH 29.4, MCHC 33.1, RDW 14.1, Plt Count 242, MPV 9.7, Neut % (Auto) 69.9, Lymph % (Auto) 16.4, [place] % (Auto) 9.3, Eos % (Auto) 1.8, Baso % (Auto) 2.5 H, Neut # (Auto) 5.8, Lymph # (Auto) 1.4, [place] # (Auto) 0.8, Eos # (Auto) 0.2, Baso # (Auto) 0.2 11/28/21 22:00: HCG, Quant 812 H 11/28/21 22:00: Sodium 136, Potassium 3.8, Chloride 101, Carbon Dioxide 26, Anion Gap 12.8, BUN 12, Creatinine 0.60, Estimated Creat Clear 145, Estimated GFR 125, Est GFR ( Amer) 151, Glucose 100, Calcium 8.8, Total Bilirubin 0.9, AST 29, ALT 16, Alkaline Phosphatase 72, C-Reactive Protein 25.5 H, Total Protein 7.7, Albumin 4.5, Globulin 3.2, Albumin/Globulin Ratio 1.4 11/28/21 22:00: ESR 19 11/28/21 22:00: Procalcitonin 0.111 I & O for Last 24 hours: Intake & Output 11/26/21 11/27/21 11/28/21 11/29/21 11:59 11:59 11:59 11:59 Weight 138 lb - Constitutional no acute distress - *Routine HEENT Exam Head: Present: normocephalic Eye: Present: EOMI, PERRL ENT: Present: mucous membranes moist - *Routine Neck Exam Present: supple, full ROM - *Routine Respiratory Exam Absent: accessory muscle use (good air entry bilaterally), wheezes, crackles - *Routine Cardiovascular Exam Present: RRR. Absent: murmur - *Routine Abdominal Exam Present: soft, normoactive bowel sounds. Absent: tenderness, rebound, guarding, mass - *Routine Rectal Exam Rectal:: deferred - *Routine Genitalia Exam Genitalia:: deferred - *Routine Extremities Exam Present: full ROM. Absent: cyanosis, edema, calf tenderness - *Routine Skin Exam Present: intact (
--- NOTE | 2021-11-29 00:56 | PC.NURSE ---
Patient to OR
--- NOTE | 2021-11-29 01:25 | P.PN_ITS ---
[facility] Anesthesia Checklist - Patient Identification Patient Identification: Arm Band - Structural Data Admitted From: Emergency Dept Planned Operative Procedure/s: Laparoscopic Resection of Ectopic Consent for Planned Operative Procedure(s) Verified: Yes Verified Documents: Surgical Consent, History and Physical - NPO Status Verified Time NPO: 00:00 - Additional verifications Anesthesia Reactions: No - Airway Assessment C-Spine Mobility Assessed: Yes (mp2) TMJ Mobility Assessed: Yes Dentition: Good Dentition - Neurological Assessment Level of Consciousness: Awake, Alert - Anesthesia Plan Anesthesia Risk discussed: Yes Anesthesia Plan: Verified ASA Class: II (e) Anesthesia Type: General [facility] History I have reviewed the patient's past medical history: Yes Medical History: Reports:: Kidney Stones, Urinary Tract Infection *Have you ever received a pneumonia vaccine?: No *Have you received a flu vaccine this season?: No Anesthesia experience/problems:: nac Laterality Cases: Bilateral: Myringotomy (Ear Tubes), Tonsillectomy Other Surgeries: Yes: Appendectomy. 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
--- NOTE | 2021-11-29 02:03 | HMH.OPNOTE ---
Date of procedure: 11/29/21 Pre-op Diagnosis:: Ectopic Post-op Diagnosis:: Ectopic Procedure performed:: Laparoscopic removal of ectopic Surgeon:: Saeid Vila MD DIRECTOR HOUSEKEEPING:: Miguel Ayala Anesthesia: ASIYA Estimated blood loss (mL): 100 Clinical Note:: She is a 21-year-old 3 para 1 aborta 1 who had a beta-hCG 2 days ago that was 1080. She came in with right lower quadrant pain tonight and had a beta-hCG of 814. Ultrasound showed a cystic mass on the right side and possible live ectopic adjacent to some bowel. After having discussed the risks and benefits with the patient we elected perform a diagnostic laparoscopy with possible removal of ectopic . 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 The left ovary was visualized and somewhat adherent to the left pelvic sidewall there were filmy adhesions around the left ovary. I suspect she may have had a previous PID. Both tubes were followed to their fimbriated ends and appeared normal. There was no evidence of distention of the either tube. In the deep pelvis there was some old clot and this was possibly consistent with an ectopic . It was adherent to the deep pelvis peritoneum. There was no evidence of ectopic anywhere else in the pelvis. There was approximately 100 cc of old blood in the pelvis as well. Operative note:: She was taken the operating room where general anesthesia was found be adequate. She was prepped at no sterile fashion in the semilithotomy position. Was Placed in the vagina antilipid the cervix was grasped with a tenaculum. I used a Mora dilator to dilate the cervix to approximately 4 mm. I then inserted a Donna uterine manipulator into the uterine cavity. I changed gloves and then injected 10 cc of 0.5% ropivacaine around the umbilicus. I made a small incision and then inserted a Veress needle into the abdominal cavity. The abdominal cavity was then insufflated with carbon oxide gas to a pressure of 20 mmHg. I then inserted an 11 mm trocar under direct vision. I injected through and through the pubic hairline, made a small incision here and inserted a 5 mm trocar under direct vision. I went lateral to the inferior epigastric arteries, injected through and through, made a small incision and then inserted another 5 mm trocar in the left lower quadrant. The findings were as previously dictated. Using suction role player I irrigated the entire deep pelvis. I then removed all the clots that were adherent to the deep pelvis. They were quite formed and look like old clot. I then grasped the ovary on the right side and using harmonic scalpel opened up into the cyst. There was some fluid as well as some mucinous fluid in there. Once again we cleaned up the pelvis and assured hemostasis. There was no evidence of any bleeding except from within the ovarian cyst and I placed a large piece of Surgicel in the defect. We once again rinsed the pelvis well and there was no bleeding at all seen in the pelvis. Both tubes were once again inspected and were found to be completely intact. I then injected approximately 30 cc of 0.25% ropivacaine into the pelvis. The secondary trochars were then removed under direct vision and the gas was removed from the abdominal cavity. Hemostasis was assured. The primary trocar was then removed under direct vision. The primary trocar site was closed deeply with [id number] 2-0 Vicryl suture followed by interrupted subcuticular 4-0 Monocryl suture. The 5 mm trocar sites were closed with subcuticular 4-0 Monocryl suture. Sterile dressings were applied. She tolerated the procedure well and was taken to the recovery room in excellent condition. All sponge, instrument and needle counts were correct. The estimat
--- NOTE | 2021-11-29 02:12 | HMH.ANESI ---
[facility] Anesthesia Record Part I Intake, IV Amount: 1,000 Estimated blood loss (mL): 100 Urine output (mL): 0 Blood Pressure: 109/77 SaO2: 96 Pulse Rate: 100 Respiratory Rate: 16 Temperature: 98.5 F Patient is:: Drowsy, Stable Stable to PACU at:: 02:10
--- NOTE | 2021-11-29 03:07 | PC.NURSE ---
LATE ENTRY 0245: PT TO FLOOR VIA STRETCHER. REPORT RECEIVED FROM OLIVER RN AT 0230. PT STABLE WITHOUT C/O PAIN. VSS, THREE T&T DRESSINGS IN PLACE WITH PINPOINT SEROSANGINOUS DRAINAGE NOTED AND CIRCLED.
--- NOTE | 2021-11-29 06:40 | PC.NURSE ---
PT UP TO BATHROOM WITH STANDBY ASSIST, TOLERATED WELL. SMALL AMOUNT OF VAGINAL BLEEDING NOTED, MESH PANTIES AND PAD APPLIED. TELFA DRESSINGS IN PLACE WITH DRAINAGE UNCHANGED.
--- NOTE | 2021-11-29 07:05 | PC.NURSE ---
REPORT GIVEN TO RODRIGO VILLAR
--- NOTE | 2021-11-29 09:39 | HMH.PHAVTE ---
[facility] Pharmacy VTE Monitoring - Patient Demographics Admission date: 11/29/21 Report Date: 11/29/21 Time: 09:39 Allergies/Adverse Reactions: Patient Allergies No Known Allergies Allergy (Verified 11/29/21 02:25) Height: 1.63 m Weight: 62.596 kg Patient Problems: Current Active Problems Ectopic (Acute) - VTE Risk Labs: VTE Related Lab Results Hgb 13.1 g/dL (12.2-16.2) 11/28/21 22:00 Hct 39.6 % (37.0-47.0) 11/28/21 22:00 Plt Count 242 K/mm3 (142-424) 11/28/21 22:00 BUN 12 mg/dl (7-17) 11/28/21 22:00 Creatinine 0.60 mg/dl (0.52-1.04) 11/28/21 22:00 Estimated Creat Clear 145 mL/min (50-200) 11/28/21 22:00 Was VTE Risk Assessment Performed: Yes VTE Risk Level: Very Low Risk Clinical Trial Participant: No - Prophylaxis VTE Prophylaxis Ordered?: Yes Types of VTE Prophylaxis: TEDS Knee High Location of Applied Device: Refused
--- NOTE | 2021-11-29 09:39 | HMH.PHAINT ---
MEDICATION RECONCILIATION COMPLETE USING MOST RECENT OB OFFICE VISIT (08/2021) AND EXTERNAL PHARMACY FILL HISTORY.
--- NOTE | 2021-11-29 09:45 | HMH.DCSUM ---
General - General Admission date:: 11/29/21 Discharge date: 11/29/21 HPI HPI: She is a 21-year-old 3 para 1 aborta 1 who had a quantitative beta-hCG about 2 days ago and it was at thousand and 80. She came into the ER this evening with increased pain and her beta hCG was only 812. She has no vaginal bleeding. Ultrasound shows a possible ectopic . As result of that she is admitted for treatment of ectopic . Hospital Course Hospital Course: She underwent a laparoscopic removal of ectopic . I really never saw the ectopic at the time of her surgery but there was old clotted blood in the deep pelvis that had been there for a few days. The tubes were followed to their fimbriated end and appeared completely normal. There was no evidence of active bleeding although there was some old blood in the pelvis. She has done well postsurgery and has remained afebrile overnight. She will be discharged home today. We will follow-up with another beta-hCG next week. The beta hCGs have been dropping. They went from 10 80-812. She is feeling better this morning. She is discharged home to follow-up in 2 weeks time. She will get another beta-hCG next week. She was given the usual instructions with respect to limiting her activity, driving and sexual activity. She was given a prescription for Percocet 5/325 number 20 tablets. Her condition on discharge is stable and improved. Objective Vital signs: Temp Pulse Resp BP Pulse Ox 98.3 F 96 H 16 102/62 L 97 11/29/21 08:45 11/29/21 08:45 11/29/21 08:45 11/29/21 08:45 11/29/21 08:45 no acute distress - *Routine HEENT Exam Head: Present: normocephalic Eye: Present: EOMI, PERRL ENT: Present: mucous membranes moist Results Labs on day of discharge: Labs from last 24 hours 11/29/21 11/28/21 11/28/21 00:20 22:00 22:00 WBC RBC Hgb Hct MCV MCH MCHC RDW Plt Count MPV Neut % (Auto) Lymph % (Auto) [place] % (Auto) Eos % (Auto) Baso % (Auto) Neut # (Auto) Lymph # (Auto) [place] # (Auto) Eos # (Auto) Baso # (Auto) ESR 19 Sodium Potassium Chloride Carbon Dioxide Anion Gap BUN Creatinine Estimated Creat Clear Estimated GFR Est GFR ( Amer) Glucose Calcium Total Bilirubin AST ALT Alkaline Phosphatase C-Reactive Protein Total Protein Albumin Globulin Albumin/Globulin Ratio Procalcitonin 0.111 HCG, Quant Urine Color Urine Appearance Urine pH Ur Specific [place] Urine Protein Urine Glucose (UA) Urine Ketones Urine Blood Urine Nitrate Urine Bilirubin Urine Urobilinogen Ur Leukocyte Esterase Ur Squamous Epith Cells Urine Mucus SARS-CoV-2 (PCR) Not detected Influenza A Untype (PCR) Not detected Influenza Type B (PCR) Not detected 11/28/21 11/28/21 11/28/21 22:00 22:00 22:00 WBC 8.3 RBC 4.45 Hgb 13.1 Hct 39.6 MCV 89.0 MCH 29.4 MCHC 33.1 RDW 14.1 Plt Count 242 MPV 9.7 Neut % (Auto) 69.9 Lymph % (Auto) 16.4 [place] % (Auto) 9.3 Eos % (Auto) 1.8 Baso % (Auto) 2.5 H Neut # (Auto) 5.8 Lymph # (Auto) 1.4 [place] # (Auto) 0.8 Eos # (Auto) 0.2 Baso # (Auto) 0.2 ESR Sodium 136 Potassium 3.8 Chloride 101 Carbon Dioxide 26 Anion Gap 12.8 BUN 12 Creatinine 0.60 Estimated Creat Clear 145 Estimated GFR 125 Est GFR ( Amer) 151 Glucose 100 Calcium 8.8 Total Bilirubin 0.9 AST 29 ALT 16 Alkaline Phosphatase 72 C-Reactive Protein 25.5 H Total Protein 7.7 Albumin 4.5 Globulin 3.2 Albumin/Globulin Ratio 1.4 Procalcitonin HCG, Quant 812 H Urine Color Urine Appearance Urine pH Ur Specific [place] Urine Protein Urine Glucose (UA) Urine Ketones Urine Blood
[2021-11-30 07:12] VITALS: BP 123/62; PULSE 68; TEMP 37.1
--- NOTE | 2021-11-30 07:12 | P.PN_ITS ---
[facility] Anesthesia Record Part II Discharge Time: 02:40 Destination: Obstetric PACU nurse assessment reviewed?: Yes Patient Condition:: Good Anesthesia Complications:: None Swallowing reflex intact?: Yes Cyanosis?: No Blood Pressure: 123/62 Pulse Rate: 68 Temperature: 98.7 F Mental Status: Alert & Oriented Pain level:: 0 Nausea and/or vomitting:: None Intake, IV Amount: 0
== END 2021-11-29 13:00 | disposition home or self-care (01) ==
LOC: ER 11-29 00:21 → SDC 11-29 01:02 → OB 11-29 02:16
PROVIDERS: Admitting Provider Nurse Practitioner Obstetrics & Gynecology; Emergency Provider Emergency Medicine; Visit Provider Nurse Practitioner Obstetrics & Gynecology
PROC: (CPT 49320; principal; 2021-11-29 00:15)
DX: O00.101 Right tubal pregnancy without intrauterine pregnancy (principal)
CPT/HCPCS: 59150; 76817; 80053; 81001; 84145; 84702; 85025; 85651; 86140; 96365; C9803; G0378; J2405; J2710; U0003; U0005

== ENCOUNTER → 2021-12-15 13:03 | Outpatient (CLI) | payer MEDICAID, SELFPAY ==
[2021-12-15 14:26] LABS: HCG,Quantitative 3 mIU/ml (0-5.42)
== END ==
PROVIDERS: Visit Provider Nurse Practitioner Obstetrics & Gynecology
DX: O00.90 Unspecified ectopic pregnancy without intrauterine pregnancy (principal)
CPT/HCPCS: 36415; 84702

== ENCOUNTER → 2022-05-10 15:40 | Outpatient (CLI) | payer MEDICAID, SELFPAY ==
[2022-05-10 17:52] LABS: HCG,Quantitative 3054 mIU/ml (0-5.42)
== END ==
PROVIDERS: Visit Provider Nurse Practitioner Obstetrics & Gynecology
DX: N92.6 Irregular menstruation, unspecified (principal)
CPT/HCPCS: 36415; 84702

== ENCOUNTER 2022-05-22 22:34 | Emergency (ER) | payer MEDICAID, SELFPAY ==
[2022-05-22 22:52] VITALS: BP 133/78; PULSE 83; RESP 16; TEMP 37.2; O2SAT 100; BMI 23.3
--- NOTE | 2022-05-22 23:03 | PC.NURSE ---
Computer error. Patient states that she is 4 para 1
--- NOTE | 2022-05-22 23:18 | HMH.EDGENADL ---
Discharge Plan Disposition Patient Disposition: Home, Self-Care Condition: Fair Prescriptions Prescriptions: No Action Vitamin Tablet 1 tab PO DAILY Referrals Follow up/Referrals: Provider,MD [place] [Primary Care Provider] - See instructions Activity Restrictions/Add. Instructions Additional Instructions/Restrictions: Please continue taking Tylenol at home for pain. Follow-up with your [facility] on Tuesday at your neck scheduled appointment. If your condition worsens or any other concerns arise, please return to the emergency department. Clinical Impressions Clinical Impression: , threatened Instructions Patient Instructions: Threatened Miscarriage, DI for Threatened Discharge ED Provider: Rose Dupree General Adult HPI General Chief complaint: Vaginal Bleeding Stated complaint: possible misscarriage 8 weeks preg Time Seen by Provider: 05/22/22 23:18 Mode of Arrival: Ambulatory Source of Information: Patient Limitations: No Limitations Description of Symptoms (Recalled from ER Triage Doc. by RN): Pt states she is 8 weeks according to her last period. Has not seen health care / medical job titles for this , states that since 2044 she has been having vaginal bleeding. States the bleeding resembles a regular period flow. Says that she is also having lower abdominal cramping and nausea. History of Present Illness HPI narrative: Patient is a 22-year-old female presenting with a chief complaint of vaginal bleeding and abdominal cramping. She states last menstrual period was March 29. Had a positive home test. Has a significant history of prior ectopic . No fever, chest pain, shortness of breath, vomiting, changes in GI/. Patient is feeling nauseated. Related Data Home Medications Medication Instructions Recorded Confirmed prenat.vits,eliezer,[id number] 1 tab PO DAILY Supplement 05/22/22 05/22/22 Allergies Allergy/AdvReac Type Severity Reaction Status Date / Time No Known Allergies Allergy Verified 12/15/21 14:57 [facility], [facility] Medical History Spontaneous at 8 to 28 weeks gestation Surgical History History of tonsillectomy and adenoidectomy Hx of myringoplasty Social History Smoking Status: Current every day smoker alcohol intake: never substance use type: denies use current occupational status: employed Travel in the last 8 weeks: None housing: apartment ROS Obtained: Yes Systems reviewed as appropriate & no additional complaints except as documented Constitutional Constitutional: Denies fever(s) Cardiovascular Cardiovascular: Denies chest pain Respiratory Respiratory: Denies shortness of breath Gastrointestinal Gastrointestingal: Reports abdominal pain, cramping and nausea; Denies diarrhea or vomiting Genitourinary Female Genitourinary: Denies dysuria Comments: Vaginal bleeding Physical Exam General General appearance: alert and in no apparent distress Head Head exam: atraumatic, normocephalic and normal inspection Eye Eye exam: Present normal appearance; Absent conjunctival redness or conjunctival injection ENT ENT exam: Present normal exam, normal oropharynx, mucous membranes moist and normal external ear exam Neck Neck exam: Present normal inspection, full ROM and trachea midline Chest Chest inspection: Present normal inspection and symmetric chest wall rise Respiratory Respiratory exam: Present normal lung sounds bilaterally; Absent respiratory distress, wheezes or stridor Cardiovascular Cardiovascular exam: Present regular rate, normal rhythm and normal heart sounds; Absent tachycardia Abdominal Exam Abdominal exam: Present soft; Absent distention, tenderness, guarding or rebound Extremities Exam Extremities exam: Present normal inspection, full ROM and other (No acute extremity swelling ) Back
[2022-05-22 23:25] LABS: Microscopic, Urine URINE MICROSCOPIC (MICROSCOPIC)
[2022-05-22 23:28] LABS: Basophils # 0.1 K/mm3 (0-0.2); Basophils % 0.9 % (0.1-2.0); Eosinophils # 0.2 K/mm3 (0.0-0.4); Eosinophils % 1.8 % (0.1-12.0); Hematocrit 42.1 % (37.0-47.0); Hemoglobin 13.6 g/dL (12.2-16.2); Lymphocytes # 2.3 K/mm3 (0.7-4.5); Lymphocytes % 25.1 % (10-50); Mean Corpuscular HGB Conc 32.3 g/dL (31.8-35.4); Mean Corpuscular Hemoglobin 29.4 pg (27.0-31.2); Mean Platelet Volume 7.4 fl (7.4-10.4); Monocytes # 0.4 K/mm3 (0.1-1.0); Monocytes % 4.6 % (1.7-9.3); Neutrophils # 6.2 K/mm3 (1.8-7.8); Neutrophils % 67.6 % (37.0-80.0); Platelet Count 338 K/mm3 (142-424); Red Blood Count 4.62 M/mm3 (4.20-5.40); Red Cell Distribution Width 13.4 % (11.5-17.5); White Blood Count 9.2 K/mm3 (4.8-10.8)
[2022-05-22 23:30] VITALS: BP 131/76; PULSE 82; O2SAT 93
[2022-05-22 23:32] LABS: Appearance,Urine CLEAR (Clear); Bilirubin,Urine Negative (Negative); Blood, Urine 3+ (Negative); Color,Urine YELLOW (Yellow); Glucose,Urine (UA) Negative (Negative); Ketones,Urine Negative (Negative); Leukocyte Esterase,Urine Negative (Negative); Nitrate,Urine Negative (Negative); PH,Urine 7.5 (5.0-8.5); Protein,Urine Negative (Negative); Specific Gravity, Urine 1.015 (1.005-1.030); Urobilinogen,Urine 0.2 EU/dl (0.2)
[2022-05-22 23:36] LABS: Squamous Epithelial Cell,Urine 20-50 #/hpf (0-5)
[2022-05-23] VITALS: BP 135/68; PULSE 71; O2SAT 99
[2022-05-23 00:22] LABS: HCG,Quantitative 102840 mIU/ml (0-5.42)
[2022-05-23 00:31] VITALS: BP 128/65; PULSE 77; O2SAT 100
--- NOTE | 2022-05-23 00:49 | US_ITS ---
PROCEDURE INFORMATION: Exam: US , Transvaginal and US Duplex Artery and Vein, Ovaries, Complete Exam date and time: 05/23/2022 1:36 AM Age: 22 years old Clinical indication: Lmp or gestational age (in weeks): Lmp March 29 2022; Other: Early preg with bleeding; ; Additional info: Abd pain vag bleeding in early . Past HX of two miscarriages in past TECHNIQUE: Imaging protocol: Real-time transvaginal obstetrical ultrasound of the maternal pelvis and a first trimester with image documentation. Transvaginal imaging was used for better evaluation of the fetus, adnexa, and/or cervix. Real-time duplex ultrasound scan of the arterial and venous flow of the ovaries with B-mode, color Doppler flow and spectral waveform analysis, Complete Duplex. Duplex images required to evaluate for torsion or vascular conditions. COMPARISON: No relevant prior studies available. FINDINGS: UTERUS: The uterus is gravid with a single intrauterine gestational sac containing pole/yolk sac. Cardiac activity at 114 beats per minute. Large subchorionic-perigestational bleed approximately greater than 50% by volume compared to gestational sac size. . COMPOSITE GESTATIONAL AGE/ POLE corresponds to 7 weeks and 0 days with estimated date of confinement of 01/09/2023. . ADNEXA/OVARIES: RIGHT ovary measures approximately 7.1 mL and LEFT ovary 8.2 mL. No adnexal mass or abnormality. Small amount of free fluid in the pelvis. . DOPPLER: Doppler examination of the ovaries with pulsed wave and color images was performed which demonstrate arterial/venous waveforms within normal limits. IMPRESSION: 1. Single LIVE intrauterine gestation with LARGE subchorionic bleed (high risk ). 2. Recommend short interval followup in 10-14 days. 3. Normal ovaries demonstrating blood flow on Doppler.
[2022-05-23 01:00] VITALS: BP 129/71; PULSE 74; O2SAT 100
--- NOTE | 2022-05-23 02:06 | PC.NURSE ---
pt back from [facility] s/w Dr. Dupree: fetus is intrauterine, HR 114, good flow to Bilat ovaries, and will send images to [facility]
[2022-05-23 03:27] VITALS: BP 130/70; PULSE 70; RESP 18; TEMP 36.6; O2SAT 98
== END 2022-05-23 03:29 | disposition home or self-care (01) ==
PROVIDERS: Emergency Provider Emergency Medicine
DX: O20.0 Threatened abortion (principal); Z3A.08 8 weeks gestation of pregnancy
CPT/HCPCS: 36415; 76817; 81001; 84702; 85025; 86850; 99283

== ENCOUNTER → 2022-07-12 15:33 | Outpatient (CLI) | payer MEDICAID, SELFPAY ==
[2022-07-12 18:18] LABS: Basophils % 0.5 % (0.1-2.0); Eosinophils # 0.2 K/mm3 (0.0-0.4); Eosinophils % 2.3 % (0.1-12.0); Hematocrit 39.5 % (37.0-47.0); Hemoglobin 13.1 g/dL (12.2-16.2); Lymphocytes # 1.8 K/mm3 (0.7-4.5); Lymphocytes % 19.3 % (10-50); Mean Corpuscular HGB Conc 33.1 g/dL (31.8-35.4); Mean Corpuscular Hemoglobin 29.7 pg (27.0-31.2); Mean Corpuscular Volume 89.6 fl (81-99); Mean Platelet Volume 8.4 fl (7.4-10.4); Monocytes # 0.4 K/mm3 (0.1-1.0); Monocytes % 4.6 % (1.7-9.3); Neutrophils # 6.8 K/mm3 (1.8-7.8); Neutrophils % 73.5 % (37.0-80.0); Platelet Count 311 K/mm3 (142-424); Red Blood Count 4.41 M/mm3 (4.20-5.40); Red Cell Distribution Width 13.2 % (11.5-17.5); White Blood Count 9.2 K/mm3 (4.8-10.8)
[2022-07-14 09:37] LABS: HIV Screen 4th Generation wRfx Non Reactive (Non Reactive)
[2022-07-14 12:55] LABS: Rapid Plasma Reagin Ab Titer Non Reactive (NonRea<1:1)
[2022-07-18 23:37] LABS: Hepatitis B Surface Antigen NEGATIVE; Hepatitis C Antibody <0.1; Rubella Antibodies, IgG 1.82
== END ==
PROVIDERS: Visit Provider Nurse Practitioner Obstetrics & Gynecology
DX: Z34.90 Encounter for supervision of normal pregnancy, unspecified, unspecified trimester (principal)
CPT/HCPCS: 36415; 85025; 86592; 86703; 86762; 86850; 87340; 87380; G0432

== ENCOUNTER → 2022-08-23 13:02 | Outpatient (CLI) | payer MEDICAID, SELFPAY ==
--- NOTE | 2022-08-23 13:05 | US_ITS ---
FINAL REPORT CLINICAL HISTORY: 20 week anatomy scan FINDINGS: There is a single live intrauterine gestation. Presentation is cephalic. The cervix is closed and measures 3.1 cm. Placenta is posterior and grade 1. Cardiac activity is confirmed at 140 bpm. Cardiac arrhythmia is noted. Three-vessel cord with satisfactory umbilical cord insertion. Four-chamber heart is noted. brain and ventricles are unremarkable. Chest and diaphragm are unremarkable. ABDOMEN: Both kidneys are unremarkable. Stomach is unremarkable. SPINE: No anomalies identified. Both arms and legs noted. AMNIOTIC FLUID: Appropriate amount. MEASUREMENTS: ULTRASOUND AGE: 20 weeks 1 days. GESTATION AGE: 20 weeks 0 days. ESTIMATED WEIGHT: 329 g GROWTH PERCENTILE: 48% BPD: 4.7 cm consistent with 20 weeks 3 days. OFD: 6 cm consistent with 20 weeks 3 days. HC: 17 cm consistent with 19 weeks 5 days. AC: 14.7 cm consistent with 20 weeks 1 days. FL: 3.3 cm consistent with 20 weeks 2 days. CEREBELLUM: 2 cm consistent with 20 weeks 2 days. HUMERUS: 3 cm consistent with 19 weeks 6 days. HC/AC: 1.15 CI: 79% FL/BPD: 69% FL/AC: 22% IMPRESSION: Single living IUP with an ultrasound age of 20 weeks 1 days. Cardiac arrhythmia noted. Recommend follow-up. Reviewed, Interpreted and Dictated by Bola Sloan III, MD Transcribed by Kye Burt Authenticated and [facility]
== END ==
PROVIDERS: PCP Nurse Practitioner Obstetrics & Gynecology; Visit Provider Nurse Practitioner Obstetrics & Gynecology
DX: Z34.90 Encounter for supervision of normal pregnancy, unspecified, unspecified trimester (principal); Z3A.20 20 weeks gestation of pregnancy
CPT/HCPCS: 76811

== ENCOUNTER → 2022-10-01 09:08 | Outpatient (CLI) | payer MEDICAID, SELFPAY ==
[2022-10-01 09:53] LABS: Basophils # 0.1 K/mm3 (0-0.2); Basophils % 0.5 % (0.1-2.0); Eosinophils # 0.4 K/mm3 (0.0-0.4); Eosinophils % 2.7 % (0.1-12.0); Hematocrit 33.8 % (37.0-47.0); Hemoglobin 11.1 g/dL (12.2-16.2); Lymphocytes # 2.3 K/mm3 (0.7-4.5); Lymphocytes % 17.2 % (10-50); Mean Corpuscular HGB Conc 32.7 g/dL (31.8-35.4); Mean Corpuscular Hemoglobin 29.8 pg (27.0-31.2); Mean Corpuscular Volume 91.2 fl (81-99); Mean Platelet Volume 7.6 fl (7.4-10.4); Monocytes # 0.7 K/mm3 (0.1-1.0); Monocytes % 5.3 % (1.7-9.3); Neutrophils % 74.4 % (37.0-80.0); Platelet Count 304 K/mm3 (142-424); Red Blood Count 3.71 M/mm3 (4.20-5.40); Red Cell Distribution Width 13.6 % (11.5-17.5); White Blood Count 13.4 K/mm3 (4.8-10.8)
[2022-10-01 10:04] LABS: Glucose,Fasting 81 mg/dl (74-100)
[2022-10-01 11:41] LABS: Glucose 1 Hour 116 mg/dL (74-100)
== END ==
PROVIDERS: Visit Provider Nurse Practitioner Obstetrics & Gynecology
DX: Z34.90 Encounter for supervision of normal pregnancy, unspecified, unspecified trimester (principal)
CPT/HCPCS: 36415; 82951; 85025

== ENCOUNTER 2022-11-17 11:05 | Emergency (ER) | payer MEDICAID, SELFPAY ==
[2022-11-17 11:15] VITALS: BP 128/83; PULSE 111; RESP 20; TEMP 37.2; O2SAT 99; BMI 28.7
--- NOTE | 2022-11-17 11:21 | EXP.UTC ---
Discharge Plan Disposition Patient Disposition: Home, Self-Care Condition: Good Prescriptions Prescriptions: New azithromycin [Zithromax Z-Ahsan] 250 mg tablet See Rx Instructions .ROUTE .COMPLEX 5 Days Qty: 6 0RF Rx Instructions: For 250 mg dose pack: take 500 mg today (day 1), then 250 mg for 4 days (days 2-5) guaifenesin [Mucinex] 600 mg tablet extended release 12hr 600 mg PO BID PRN (Reason: cough) Qty: 20 0RF No Action Vitamin Tablet 1 tab PO DAILY ferrous sulfate 325 mg (65 mg iron) tablet 325 mg PO DAILY Referrals Follow up/Referrals: Provider,Referral, MD [Primary Care Provider] - See instructions Activity Restrictions/Add. Instructions Additional Instructions/Restrictions: Start antibiotic today. Be sure to complete entire prescription even if feeling better Monitor temp. Tylenol every 4 hours as needed and / or ibuprofen every 6 hours as needed ( As long as your primary care physician has told you that it ok to take both. For fever/aches/pains ER if no less than 101 despite Tylenol or Motrin Humidifier/vaporizer or hot steamy shower Inhaler every 4-6 hours as needed like we discussed. If unsure how to use it, ask pharmacist to demonstrate how. Should help open airways and improve cough, fxwheezing, and shortness of breath Mucinex during the day for your cough Be sure to drink lots of water. Discuss Over the counter cough medications with your OBGYN Follow up IMMEDIATELY for new or worsening of symptoms OR no noticeable improvement over the next 48-72 hours. 911 immediately for any life threatening symptoms such as chest pain or difficulty breathing Clinical Impressions Clinical Impression: Sinusitis, Bronchitis Instructions Patient Instructions: DI for Sinusitis, Sinusitis, Acute Bronchitis Discharge ED Provider: Leslie Coley [facility] HPI General Stated complaint: Cough,congestion, Chest congestion Mode of Arrival: Ambulatory Source of Information: Patient Limitations: No Limitations Time Seen by Provider: 11/17/22 11:22 Description of Symptoms (Recalled from Triage Doc. by RN): sore throat, cough, lungs feel tight, productive cough HEENT Symptoms (Recalled from RN notes): Yes Resp Symptoms (Recalled from RN notes): No Skin Symptoms (Recalled from RN notes): No MS Symptoms (Recalled from RN notes): No Functional Status (Recalled from RN notes): n/a History of Present Illness Provider Complaint: Patient states that she is 32wks OB States that she has been having sore throat, sinus congestion and pressure with drainage in the back of her throat, cough, and feels like she may have bronchitis States that at times she is able to cough up a little mucous Related Data Home Medications Medication Instructions Recorded Confirmed prenat.vits,eliezer,[id number] 1 tab PO DAILY Supplement 05/22/22 11/17/22 ferrous sulfate 325 mg (65 mg 325 mg PO DAILY Supplement 11/17/22 11/17/22 iron) tablet Previous Rx's Medication Instructions Recorded azithromycin 250 mg tablet See Rx Instructions PO .COMPLEX 5 11/17/22 (Zithromax Z-Ahsan) days #6 tabs guaifenesin 600 mg tablet, 600 mg PO BID PRN cough #20 tabs 11/17/22 extended release 12 hr (Mucinex) Allergies Allergy/AdvReac Type Severity Reaction Status Date / Time No Known Allergies Allergy Verified 11/17/22 11:22 Worker's Comp Is this a Worker's Comp case?: [facility] Disclaimer: The information contained in this section may have been updated after the patient was seen, as this information can be updated by other users. Medical History Spontaneous at 8 to 28 weeks gestation Surgical History History of tonsillectomy and adenoidectomy Hx of myringoplasty S/P dilation and curettage Family History
[2022-11-17 11:31] LABS: UTC Strep Screen (Rapid) Negative (Negative)
[2022-11-17 12:05] VITALS: BP 128/83; PULSE 111; RESP 20; TEMP 37.2; O2SAT 99
== END 2022-11-17 12:05 | disposition home or self-care (01) ==
PROVIDERS: Emergency Provider Nurse Practitioner
DX: O98.513 Other viral diseases complicating pregnancy, third trimester (principal); J01.90 Acute sinusitis, unspecified; J20.9 Acute bronchitis, unspecified; Z3A.32 32 weeks gestation of pregnancy
CPT/HCPCS: 87880; 99212; 99213; 99214; G0463

== ENCOUNTER → 2022-12-14 18:20 | Outpatient (CLI) | payer MEDICAID, SELFPAY | PROVIDERS: PCP Nurse Practitioner Obstetrics & Gynecology; Visit Provider Nurse Practitioner Obstetrics & Gynecology | DX: Z34.90 Encounter for supervision of normal pregnancy, unspecified, unspecified trimester (principal) | CPT/HCPCS: 86403 ==

== ENCOUNTER 2023-01-04 05:04 | Inpatient (IN) | payer MEDICAID, SELFPAY ==
[2023-01-04 05:08] VITALS: BMI 30.2
[2023-01-04 05:47] LABS: Coronavirus 19, PCR Not Detected (NotDetected); Influenza A, PCR Not Detected (NotDetected); Influenza B, PCR Not Detected (NotDetected)
[2023-01-04 05:51] LABS: Basophils % 0.3 % (0.1-2.0); Eosinophils # 0.2 K/mm3 (0.0-0.4); Eosinophils % 1.6 % (0.1-12.0); Hemoglobin 9.8 g/dL (12.2-16.2); Lymphocytes # 2.1 K/mm3 (0.7-4.5); Lymphocytes % 16.4 % (10-50); Mean Corpuscular HGB Conc 32.6 g/dL (31.8-35.4); Mean Corpuscular Hemoglobin 25.2 pg (27.0-31.2); Mean Corpuscular Volume 77.3 fl (81-99); Mean Platelet Volume 8.3 fl (7.4-10.4); Monocytes # 0.8 K/mm3 (0.1-1.0); Neutrophils # 9.5 K/mm3 (1.8-7.8); Neutrophils % 75.6 % (37.0-80.0); Platelet Count 389 K/mm3 (142-424); Red Blood Count 3.88 M/mm3 (4.20-5.40); White Blood Count 12.6 K/mm3 (4.8-10.8)
[2023-01-04 05:59] LABS: Barbiturates Screen,Urine Negative ng/ml (<200)
[2023-01-04 06:00] LABS: Amphetamine/Metha Screen,Urine Negative ng/ml (<1000); Benzodiazepines Screen,Urine Negative ng/ml (<200)
[2023-01-04 06:01] LABS: Cannabinoid Screen,Urine Negative ng/ml (<50)
[2023-01-04 06:02] LABS: Cocaine Screen,Urine Negative ng/ml (<300); Methadone Screen,Urine Negative ng/ml (<300)
[2023-01-04 06:03] LABS: Opiate Screen,Urine Negative ng/ml (<300)
[2023-01-04 06:04] LABS: Phencyclidine Screen,Urine Negative ng/ml (<25)
[2023-01-04 06:11] LABS: Microscopic, Urine URINE MICROSCOPIC (MICROSCOPIC)
[2023-01-04 06:35] LABS: Appearance,Urine CLEAR (Clear); Bilirubin,Urine Negative (Negative); Blood, Urine Negative (Negative); Color,Urine YELLOW (Yellow); Glucose,Urine (UA) Negative (Negative); Ketones,Urine Negative (Negative); Leukocyte Esterase,Urine TRACE (Negative); Nitrate,Urine Negative (Negative); PH,Urine 6.5 (5.0-8.5); Protein,Urine Negative (Negative); Urobilinogen,Urine 0.2 EU/dl (0.2)
[2023-01-04 06:50] LABS: Bacteria,Urine Trace /lpf; WBC,Urine Occasional #/hpf (0-3)
[2023-01-04 07:09] VITALS: BP 118/68; PULSE 96; RESP 20; TEMP 36.4; O2SAT 98; BMI 30.2
[2023-01-04 07:20] VITALS: BP 128/67; PULSE 82; RESP 20; TEMP 36.7; O2SAT 99
--- NOTE | 2023-01-04 08:35 | EXP.LABOR.NO ---
Labor Note Subjective: Date: 01/04/23 Time: 08:35 regular contraction Objective: NST:: Reactive Contractions:: every 2-3 minutes Cervical Dilation:: 2-3 Effacement:: 75% Station: -2 Membranes: artificially ruptured Comment:: I ruptured her membranes and there was clear fluid. Fetus: Monitoring?: Yes monitoring type:: External Assessment: Labor progressing?: Yes Cephalopelvic disproportion?: No Plan: Anesthesia for epidural?: No Continue to labor down?: Yes Plan for ?: No Continue to monitor?: Yes Start pushing?: No
--- NOTE | 2023-01-04 08:36 | EXP.HP ---
History of Present Illness *Admission Date: 01/04/23 *Reason for visit:: Term *History of present illness: She is a 22-year-old 2 para 1 at 39 weeks gestational age. She elected to have induction of labor. She is an otherwise healthy young lady. [facility] Disclaimer: The information contained in this section may have been updated after the patient was seen, as this information can be updated by other users. Medical History Anxiety Hx of depression, currently Spontaneous at 8 to 28 weeks gestation Surgical History History of tonsillectomy and adenoidectomy Hx of appendectomy Hx of myringoplasty S/P dilation and curettage Family History Diabetes Hyperlipidemia Heart attack Cancer Hypertension Asthma Social History Smoking Status: Current every day smoker tobacco type: e-cigarettes alcohol intake: never substance use type: denies use current occupational status: employed Travel in the last 8 weeks: None housing: apartment marital status: single number of children: 1 do you feel safe at home: Yes victim of physical abuse: No victim of emotional abuse: No victim of sexual abuse: No Review of Systems Review of Systems Review of systems:: pertinent systems reviewed and negative unless documented below Meds Home Medications and Allergies Home Medications Medication Instructions Recorded Confirmed Type prenat.vits,eliezer,[id number] 1 tab PO DAILY Supplement 05/22/22 01/04/23 History ferrous sulfate 325 mg (65 mg 325 mg PO DAILY Supplement 11/17/22 01/04/23 History iron) tablet New Prescriptions to Start Prescriptions: Allergies Allergy/AdvReac Type Severity Reaction Status Date / Time No Known Allergies Allergy Verified 01/04/23 05:16 Exam Data for Last 24 hours Vital signs and Labs for Last 24 Hours: Temp Pulse Resp BP Pulse Ox 97.5 F L 96 H 20 118/68 98 01/04/23 07:09 01/04/23 07:09 01/04/23 07:09 01/04/23 07:09 01/04/23 07:09 Laboratory Results - last 24 hr 01/04/23 05:23: Urine Color Yellow, Urine Appearance Clear, Urine pH 6.5, Ur Specific [place] 1.010, Urine Protein Negative, Urine Glucose (UA) Negative, Urine Ketones Negative, Urine Blood Negative, Urine Nitrate Negative, Urine Bilirubin Negative, Urine Urobilinogen 0.2, Ur Leukocyte Esterase Trace, Urine RBC None, Urine WBC Occasional, Ur Squamous Epith Cells 5-10, Urine Bacteria Trace 01/04/23 05:30: WBC 12.6 H, RBC 3.88 L, Hgb 9.8 L, Hct 30.0 L, MCV 77.3 L, MCH 25.2 L, MCHC 32.6, RDW 16.0, Plt Count 389, MPV 8.3, Neut % (Auto) 75.6, Lymph % (Auto) 16.4, Carbon % (Auto) 6.0, Eos % (Auto) 1.6, Baso % (Auto) 0.3, Neut # (Auto) 9.5 H, Lymph # (Auto) 2.1, Carbon # (Auto) 0.8, Eos # (Auto) 0.2, Baso # (Auto) 0.0 01/04/23 05:30: Blood Type O Positive, Antibody Screen Negative 01/04/23 05:30: Urine Opiates Screen Negative, Urine Methadone Screen Negative, Ur Barbituates Screen Negative, Ur Phencyclidine Scrn Negative, Ur Amphetamines Screen Negative, U Benzodiazepines Scrn Negative, Urine Cocaine Screen Negative, U Marijuana (THC) Screen Negative 01/04/23 05:30: SARS-CoV-2 (PCR) Not detected, Influenza A Untype (PCR) Not detected, Influenza Type B (PCR) Not detected I & O for Last 24 hours: Intake & Output 01/01/23 01/02/23 01/03/23 01/04/23 11:59 11:59 11:59 11:59 Weight 176 lb 8 oz Constitutional Constitutional: no acute distress *Routine HEENT Exam Head: Present normocephalic Eye: Present EOMI and PERRL ENT: Present mucous membranes moist *Routine Neck Exam Neck: Present supple; Absent lymphadenopathy *Routine Respiratory Exam Respiratory: Present CTA bilaterally *Routine Cardiovascular Exam Cardiovascular: Present RRR *Routine Abdominal
--- NOTE | 2023-01-04 09:35 | EXP.ANES.CKL ---
[facility] Disclaimer: The information contained in this section may have been updated after the patient was seen, as this information can be updated by other users. Medical History Anxiety Hx of depression, currently Spontaneous at 8 to 28 weeks gestation Surgical History History of tonsillectomy and adenoidectomy Hx of appendectomy Hx of myringoplasty S/P dilation and curettage Family History Diabetes Hyperlipidemia Heart attack Cancer Hypertension Asthma Social History Smoking Status: Current every day smoker tobacco type: e-cigarettes alcohol intake: never substance use type: denies use current occupational status: employed Travel in the last 8 weeks: None housing: apartment marital status: single number of children: 1 do you feel safe at home: Yes victim of physical abuse: No victim of emotional abuse: No victim of sexual abuse: No [facility] Anesthesia Checklist Patient Identification Patient Identification: Arm Band Structural Data Admitted From: Inpatient Planned Operative Procedure/s: Labor Epidural Consent for Planned Operative Procedure(s) Verified: Yes Verified Documents: Surgical Consent and History and Physical NPO Status Verified Time NPO: 00:00 Additional verifications Anesthesia Reactions: No Airway Assessment C-Spine Mobility Assessed: Yes TMJ Mobility Assessed: Yes Neurological Assessment Level of Consciousness: Awake and Alert Anesthesia Plan Anesthesia Risk discussed: Yes Anesthesia Plan: Verified ASA Class: II Anesthesia Type: Epidural
--- NOTE | 2023-01-04 12:07 | EXP.LABOR.NO ---
Labor Note Subjective: Date: 01/04/23 Time: 11:50 regular contraction Objective: NST:: Reactive Contractions:: every 2-3 minutes Cervical Dilation:: 8 Effacement:: 100% Station: -1 Membranes: artificially ruptured Fetus: Monitoring?: Yes monitoring type:: External Assessment: Labor progressing?: Yes Cephalopelvic disproportion?: No Plan: Anesthesia for epidural?: Yes Continue to labor down?: Yes Plan for ?: No Continue to monitor?: Yes Start pushing?: No Comment:: She continues to do well. She is denise well. Baby's head still has to come down a little bit. Nonstress test is reactive.
--- NOTE | 2023-01-04 15:26 | P.PCN_ITS ---
Delivery Note Delivery Date:: 01/04/23 Delivery Time:: 13:17 Anesthesia Type: Epidural Was labor medically induced?: Yes Induction method: per pitocin protocol Gestational age (weeks): 39 delivered prior to 39 weeks?: No Infant Gender: Female at 1 minute: 7 at 5 minutes: 9 Delivery Procedure:: She is a 22-year-old 2 para 1 at 39 weeks gestational age. She was brought in for induction of labor at term. She was started on IV oxytocin and had her membranes ruptured. She delivered spontaneously under labor epidural liveborn female child at 1:17 PM in the afternoon of January 04, 2023. On deliver the shoulder it was noted that there was some mild dystocia I did not apply excessive traction and the nurse applied suprapubic pressure. With the patient in Elvia position we are of the easily free the anterior shoulder. This was followed by the rest the infa nt's body atraumatically. There was some thick meconium behind the baby and I DeLee suction the baby's nasopharynx and oropharynx. The cord was clamped and cut and the infant was handed off to Dr. Weaver who assigned Apgars of 7 at 1 minute and 9 at 5 minutes. We then obtained cord blood. She received IV oxytocin using gentle traction on the cord and countertraction the fundus I was able to easily deliver the placenta intact. It had a normal three-vessel cord. There were no perineal or vaginal lacerations. Estimated blood loss was approximately 200 cc. She has O+ blood, she is rubella immune and was group B streptococcus negative. Her electric meter repairer apprentice is Dr. Weaver. Placental Delivery Description: Expressed
[2023-01-04 17:25] VITALS: BP 123/67; PULSE 99; RESP 20; TEMP 37.2; O2SAT 98
[2023-01-05 06:54] LABS: Hematocrit 27.8 % (37.0-47.0); Hemoglobin 9.1 g/dL (12.2-16.2)
--- NOTE | 2023-01-05 13:33 | EXP.ACUTE.PN ---
Subjective *Date: 01/05/23 *Time: 08:30 Interval history: She is doing well this morning. She is eating and drinking and ambulating. Her hemoglobin is 9.1. It was 9.8 prior to her delivery. Medical Exam Vital signs and Labs for Last 24 Hours: Vital Signs Temp Pulse Resp BP Pulse Ox 01/04/23 17:25 98.9 F 99 H 20 123/67 98 Laboratory Results - last 24 hr 01/05/23 06:38: Hgb 9.1 L, Hct 27.8 L I & O for Labs for Last 24 Hours: Intake & Output 01/03/23 01/04/23 01/05/23 01/06/23 11:59 11:59 11:59 11:59 Weight 176 lb 8 oz Head: Present atraumatic ENT: Present normal exam Neck: Present normal inspection Respiratory: Present normal respiratory effort Assessment and Plan *Assessment and plan (1) Normal delivery: Status: Acute Category: Medical Code(s): O80 - Encounter for full-term uncomplicated delivery (2) anemia: Status: Acute Category: Medical Code(s): O90.81 - Anemia of the puerperium Plan She is doing well. We will plan to send her home tomorrow. She will continue with her vitamins and iron tablets when she goes home. She has mild anemia but she is asymptomatic.
[2023-01-05 20:00] VITALS: BP 130/76; PULSE 62; RESP 17; TEMP 36.9; O2SAT 99
[2023-01-06 04:00] VITALS: BP 124/80; PULSE 61; RESP 17; TEMP 36.8; O2SAT 100
--- NOTE | 2023-01-06 08:57 | EXP.DC.SUM ---
General Admission date:: 01/04/23 Discharge date: 01/06/23 HPI HPI HPI: She is a 22-year-old 4 para 1 at 39 weeks gestational age. She elected to have induction of labor. She is an otherwise healthy young lady. Hospital Course Hospital Course Hospital Course: She was admitted and started on IV oxytocin. She progressed to full dilation and delivered spontaneously a liveborn female child at 1:17 PM in the afternoon of January 04, 2023. The baby weighed 8 pounds 1 ounce and was 19-1/2 inches long. She had Apgars of 7 at 1 minute and 9 at 5 minutes. She did have some mild shoulder dystocia that required suprapubic pressure as well as Elvia maneuver. Otherwise the baby came out easily without undue traction. She has done well post and has remained afebrile throughout hospitalization. She is eating and drinking and ambulating. She is breast-feeding and bottlefeeding. She has O+ blood, she is well immune and was group B streptococcus positive. She did receive IV antibiotics while in labor. Her professor of poultry science is Dr. Weaver. She is discharged home to follow-up with me in approximate 2 weeks time. She was given the usual instructions with respect to limiting her activity, driving and sexual activity. Her condition on discharge is stable and improved. Exam Data for Last 24 hours Vital signs and Labs for Last 24 Hours: Temp Pulse Resp BP Pulse Ox 98.2 F 61 17 124/80 100 01/06/23 04:00 01/06/23 04:00 01/06/23 04:00 01/06/23 04:00 01/06/23 04:00 I & O for Last 24 hours: Intake & Output 01/03/23 01/04/23 01/05/23 01/06/23 11:59 11:59 11:59 11:59 Weight 176 lb 8 oz Constitutional Constitutional: no acute distress Comments: She looks pale. *Routine HEENT Exam Head: Present normocephalic ENT: Present mucous membranes moist *Routine Respiratory Exam Respiratory: Present normal respiratory effort DS: Diagnosis Discharge Diagnosis (1) Normal delivery: Status: Acute Code(s): O80 - Encounter for full-term uncomplicated delivery (2) anemia: Status: Acute Code(s): O90.81 - Anemia of the puerperium Meds Home Medications and Allergies Home Medications Medication Instructions Recorded Confirmed Type prenat.vits,eliezer,[id number] 1 tab PO DAILY Supplement 05/22/22 01/04/23 History ferrous sulfate 325 mg (65 mg 325 mg PO DAILY Supplement 11/17/22 01/04/23 History iron) tablet New Prescriptions to Start Prescriptions: Allergies Allergy/AdvReac Type Severity Reaction Status Date / Time No Known Allergies Allergy Verified 01/04/23 05:16 Discharge Plan Disposition Patient Disposition: Home, Self-Care Discharge Order Discharge Orders: Discharge Order (Routine); Ordered 01/06/23 Ordered By: Saeid Vila Follow up Plan Follow up with: Pearl Juarez DO [Staff Physician] - 01/18/23 2:15 pm Prescriptions/Medication Reconciliation: Continued prenat.vits,eliezer,[id number] Tablet 1 tab PO DAILY ferrous sulfate 325 mg (65 mg iron) tablet 325 mg PO DAILY Problem Reconciliation Problems Reviewed?: Yes Patient Discharge Instructions ACTIVITY: No heavy lifting DIET: continue same diet Additional Instructions: No heavy lifting, No strenuous activity, nothing in the vagina for 6 weeks. Patient Instructions: Depression, Hemorrhage, DI for Labor and Delivery, Vaginal , DI for Pre-eclampsia, [facility] Post Discharge Instructions Providers Primary Care Provider: Provider,Referral Admit Provider: Piper Munoz Attending Provider: Saeid Vila
== END 2023-01-06 10:54 | disposition home or self-care (01) | DRG 807 ==
PROVIDERS: Admitting Provider Obstetrics & Gynecology; Visit Provider Nurse Practitioner Obstetrics & Gynecology
DX: O80 Encounter for full-term uncomplicated delivery (principal); Z37.0 Single live birth; O99.334 Smoking (tobacco) complicating childbirth; Z3A.39 39 weeks gestation of pregnancy; O90.81 Anemia of the puerperium
CPT/HCPCS: 59409; 36415; 59025; 80305; 81001; 85014; 85018; 85025; 86850; 87636; 94761; C9803; G0283; J0290; U0003; U0005

== ENCOUNTER 2023-04-09 10:48 | Emergency (ER) | payer MEDICAID, SELFPAY ==
[2023-04-09] VITALS (7 sets, daily range): BP systolic 114–124; BP diastolic 70–83; PULSE 59–101; RESP 17–18; TEMP 36.8–36.9; O2SAT 98–100; BMI 25.4
--- NOTE | 2023-04-09 10:48 | ECG_ITS ---
APPROVED REPORT Exam: Resting ECG HR:97 bpm ECG Measurements Heart Rate 97 AXES SD 140 P 56 QRSd 97 QRS 30 QT 325 T -19 QTc 379 Conclusion SINUS RHYTHM INCOMPLETE RIGHT BUNDLE BRANCH BLOCK [90+ ms QRS DURATION, TERMINAL R IN V1/V2, 40+ ms S IN I/aVL/V4/V5/V6] NONSPECIFIC T-WAVE ABNORMALITY BORDERLINE ECG UNCONFIRMED REPORT Electronically signed by : Taye Hernandez MD 04/10/2023 12:34:27
--- NOTE | 2023-04-09 10:55 | XR_ITS ---
PROCEDURE INFORMATION: Exam: XR Chest Exam date and time: 04/09/2023 11:11 AM Age: 23 years old Clinical indication: Dyspnea TECHNIQUE: Imaging protocol: Radiologic exam of the chest. Views: 1 view. COMPARISON: ABDPELW CT ABD PELVIS W/ CONTRAST 06/02/2017 2:29 PM FINDINGS: Lungs: Unremarkable. No consolidation. Pleural spaces: Unremarkable. No pleural effusion. No pneumothorax. Heart/Mediastinum: Unremarkable. No cardiomegaly. Bones/joints: Unremarkable for age. IMPRESSION: Negative chest exam.
--- NOTE | 2023-04-09 10:57 | HMH.EDGENADL ---
Discharge Plan Disposition Patient Disposition: Home, Self-Care Prescriptions Prescriptions: No Action fluoxetine [Prozac] 10 mg capsule 10 mg PO DAILY medroxyprogesterone [Depo-Provera] 150 mg/mL suspension 150 mg IM [id number] Activity Restrictions/Add. Instructions Additional Instructions/Restrictions: No emergent medical condition today identified regarding her chest pain. Please follow-up with your primary care doctor as needed. Clinical Impressions Clinical Impression: Atypical chest pain Discharge ED Provider: Alla Munoz General Adult HPI General Chief complaint: Chest Pain Stated complaint: chest pain Time Seen by Provider: 04/09/23 10:49 History of Present Illness HPI narrative: 23-year-old female here with chest pain. She is 3 months did not have any complication surrounding no history of DVT or PE. Patient does state that the pain is pleuritic and somewhat positional and gets better with sitting forward. She does have some dyspnea associated with this but is not exertional. No fevers or chills or preceding upper respiratory infections. She has had no hemoptysis, no cough, no lower extremity edema or swelling, or exogenous estrogen use. She is on a Depo shot. No family history of any sudden cardiac or any abnormal congenital abnormalities that she is aware of. No underlying medical problems specifically no heart or lung problems that she is aware of. No drug use. She states this is not associated with food. Located substernal occasionally radiates to her neck. Related Data Home Medications Medication Instructions Recorded Confirmed fluoxetine 10 mg capsule (Prozac) 10 mg PO DAILY adhd 04/09/23 04/09/23 medroxyprogesterone 150 mg/mL 150 mg IM [id number] Control 04/09/23 04/09/23 intramuscular suspension (Depo-Provera) Allergies Allergy/AdvReac Type Severity Reaction Status Date / Time No Known Allergies Allergy Verified 03/09/23 14:23 [facility] Disclaimer: The information contained in this section may have been updated after the patient was seen, as this information can be updated by other users. Medical History Anxiety Depression Surgical History History of tonsillectomy and adenoidectomy Hx of appendectomy Hx of myringoplasty S/P dilation and curettage Family History Other Asthma Cancer Diabetes Heart attack Hyperlipidemia Hypertension Social History Smoking Status: Never smoker alcohol intake: never substance use type: denies use current occupational status: employed Travel in the last 8 weeks: None housing: apartment marital status: single number of children: 1 do you feel safe at home: Yes victim of physical abuse: No victim of emotional abuse: No victim of sexual abuse: No ROS Obtained: Yes All systems reviewed & no additional complaints except as documented Physical Exam General General appearance: alert and in no apparent distress Respiratory Respiratory exam: Present normal lung sounds bilaterally Cardiovascular Cardiovascular exam: Present regular rate; Absent tachycardia Neurological Exam Neurological exam: Present alert and oriented X3 Medical Decision Making Tera Inquiry Pt receiving controlled substance: No Vital Signs: 04/09/23 10:46 04/09/23 11:01 04/09/23 11:30 Temperature 98.4 F Temperature Source Oral Pulse Rate 77 66 Pulse Rate [Right] 101 H Respiratory Rate 18 Blood Pressure 119/83 119/79 Blood Pressure [Right Arm] 119/83 Blood Pressure Mean 95 90 Blood Pressure Mean [Right Arm] 95 Blood Pressure Source [Right Arm] Automatic Cuff 02 Sat by Pulse Oximetry 100 99 99 Oxygen Delivery Method Room Air Room Air Room Air
[2023-04-09 11:08] LABS: Basophils % 0.5 % (0.1-2.0); Eosinophils # 0.2 K/mm3 (0.0-0.4); Eosinophils % 3.4 % (0.1-12.0); Hematocrit 41.2 % (37.0-47.0); Hemoglobin 13.3 g/dL (12.2-16.2); Lymphocytes # 1.6 K/mm3 (0.7-4.5); Lymphocytes % 32.5 % (10-50); Mean Corpuscular HGB Conc 32.4 g/dL (31.8-35.4); Mean Corpuscular Hemoglobin 26.8 pg (27.0-31.2); Mean Corpuscular Volume 82.8 fl (81-99); Monocytes # 0.3 K/mm3 (0.1-1.0); Neutrophils # 2.9 K/mm3 (1.8-7.8); Neutrophils % 58.7 % (37.0-80.0); Platelet Count 264 K/mm3 (142-424); Red Blood Count 4.97 M/mm3 (4.20-5.40); White Blood Count 4.9 K/mm3 (4.8-10.8)
[2023-04-09 11:13] LABS: Alanine Aminotransferase 48 U/L (12-78); Albumin Level 4.8 g/dl (3.5-5.0); Albumin/Globulin Ratio 1.2 (1.1-1.8); Alkaline Phosphatase 80 U/L (38-126); Anion Gap 17.3 mEq/L (5-15); Aspartate Amino Transferase 42 U/L (14-36); Bilirubin,Total 0.7 mg/dl (0.2-1.3); Blood Urea Nitrogen 12 mg/dl (7-17); Calcium 9.3 mg/dl (8.4-10.2); Carbon Dioxide 23 mmol/L (22.0-30.0); Chloride 107 mmol/L (98-107); Estimated Glomerular Filt Rate 77 ml/min (>60); GFR (African American) 93 ML/MIN (>60); Glucose 94 mg/dl (74-100); Potassium 4.3 mmoL/L (3.5-5.1); Sodium 143 mmol/L (136-145); Total Protein,Serum 8.8 g/dl (6.3-8.2)
[2023-04-09 11:18] LABS: D-Dimer 0.93 ug/mL (0.0-0.5)
[2023-04-09 11:29] LABS: Troponin I < 0.01 ng/ml (0.00-0.034)
--- NOTE | 2023-04-09 11:35 | PC.NURSE ---
rounded on pt nothing needed at this time,call light at bs
--- NOTE | 2023-04-09 11:49 | CT_ITS ---
PROCEDURE INFORMATION: Exam: CTA Chest With Contrast Exam date and time: 04/09/2023 12:17 PM Age: 23 years old Clinical indication: Pain; Pleuordynia; Additional info: Pleuritic cp, d-dimer elevated TECHNIQUE: Imaging protocol: Computed tomographic angiography of the chest with contrast. Exam focused on the arteries. 3D rendering (Not supervised by radiologist): MIP and/or 3D reconstructed images were created by the technologist. Radiation optimization: All CT scans at this facility use at least one of these dose optimization techniques: automated exposure control; mA and/or kV adjustment per patient size (includes targeted exams where dose is matched to clinical indication); or iterative reconstruction. Contrast material: ISOVUE; Contrast volume: 70 ml; Contrast route: INTRAVENOUS (IV); REPORTING DATA: Count of CT and Cardiac NM exams in prior 12 months: This patient has received 0 known CTs and 0 known cardiac nuclear medicine studies in the 12 months prior to the current study. COMPARISON: CR XR CHEST PORTABLE 04/09/2023 11:11 AM FINDINGS: Pulmonary arteries: Pulmonary vasculature is adequately opacified without filling defects or other evidence of acute pulmonary embolism. Aorta: Thoracic aorta is unremarkable. No aortic aneurysm or evidence of aortic dissection. Lungs: 1.5 cm nodular calcification right lower lobe consistent with calcified granuloma. Lung kinsey are otherwise aerated and clear. Pleural spaces: Unremarkable. No pneumothorax. No pleural effusion. Heart: Heart is not significantly enlarged. No significant coronary artery calcifications. No significant pericardial effusion. Mediastinal space: Residual thymic tissue in the anterior mediastinum consistent with patient's age otherwise mediastinal structures are unremarkable. No significant mediastinal lymphadenopathy. Lymph nodes: See Mediastinal space finding. Bones/joints: Unremarkable. No acute fracture. Soft tissues: Unremarkable. IMPRESSION: Negative CT angiogram of the chest. No evidence of acute pulmonary embolism.
[2023-04-09 11:59] LABS: HCG Qualitative, Serum Negative (Negative)
== END 2023-04-09 13:08 | disposition home or self-care (01) ==
PROVIDERS: Emergency Provider Student in an Organized Health Care Education/Training Program
DX: R07.89 Other chest pain (principal); R06.00 Dyspnea, unspecified; F41.9 Anxiety disorder, unspecified; F32.A Depression, unspecified
CPT/HCPCS: 71045; 71275; 80053; 84484; 84703; 85025; 85378; 93005; 96374; 99285; Q9967

== ENCOUNTER 2024-03-05 14:19 | Outpatient (CLI) | payer MEDICAID, SELFPAY ==
--- NOTE | 2024-03-05 14:19 | US_ITS ---
PROCEDURE: US TRANSVAGINAL CLINICAL INDICATION: abnormal uterine bleeding COMPARISON: No exams were available for comparison FINDINGS: Transvaginal sonographic images of the pelvis were obtained. UTERUS: 8.9cm x 6.0cmx 3.4cm anteverted with a combined endometrial thickness of 7.1mm. There is a small amount of fluid within the endometrium. LEFT OVARY: 2.7 cmx2.6 cmx1.9cm with a volume of 7ml. There are several small hyperechoic areas within the left ovary. There are multiple small peripheral follicles that has a polycystic appearance. RIGHT OVARY: 4.5cmx 4.3cmx3.5 cm with a volume of 36.2ml. There is a dominant follicle in the right ovary measuring 3.7 cm x 2.7 cm x 3.8 cm. There are multiple small peripheral follicles. Both ovaries are seen and appear normal. Doppler flow to both ovaries are seen. There is no fluid in the cul-de-sac. IMPRESSION: 1. Anteverted, bulky uterus normal in shape. 2. The endometrium measures 7.1 mm and has a small amount of fluid. 3. Both ovaries are seen and appear normal. 4. The left ovary has a polycystic appearance. There are small echogenic foci within the left ovary. 5. The right ovary has a dominant follicle measuring 3.8 cm. 6. No fluid in the cul-de-sac. Dictated by: Saeid Vila MD 03/06/2024 10:40 Saeid Vila MD in OV 03/06/2024 10:40
== END 2024-03-05 23:59 | disposition home or self-care (01) ==
LOC: RAD 14:19
PROVIDERS: PCP Internal Medicine Adolescent Medicine; Visit Provider Nurse Practitioner Obstetrics & Gynecology
DX: N93.9 Abnormal uterine and vaginal bleeding, unspecified (principal)
CPT/HCPCS: 76830

== ENCOUNTER 2024-08-01 17:18 | Emergency (ER) | payer MEDICAID, SELFPAY ==
--- NOTE | 2024-08-01 17:22 | HMH.EDGENADL ---
Discharge Plan Disposition Patient Disposition: Home, Self-Care Condition: Good Prescriptions Prescriptions: No Action escitalopram oxalate 20 mg tablet 20 mg PO DAILY Patient Comments: TAKE 1 TABLET BY MOUTH EVERY DAY FOR 90 DAYS hydroxyzine HCl 25 mg tablet PO HS Classic 28 mg iron- 800 mcg tablet 1 tab PO DAILY Qty: 30 11RF Referrals Follow up/Referrals: Taye Hernandez MD [Primary Care Provider] - See instructions Activity Restrictions/Add. Instructions Additional Instructions/Restrictions: Please continue taking Tylenol alternating Motrin for symptomatic discomfort. Follow-up with your [facility]AL[facility] ASSURANCE QA LAB TECHNICIAN within 48 hours. Return to ER for any worsening signs or symptoms as needed. Clinical Impressions Clinical Impression: Abdominal pain, acute Ovarian cyst Qualifiers: Laterality: left Qualified Code(s): N83.202 - Unspecified ovarian cyst, left side Print Language Print Language: Turkmen Discharge ED Provider: Ace Marroquin General Adult HPI <NATALY Maki - Last Filed: 08/01/24 19:42> General Chief complaint: PAIN Stated complaint: pelvic pain Time Seen by Provider: 08/01/24 17:22 History of Present Illness HPI narrative: Patient presents for evaluation of acute abdominal pain. Patient states that she was awoken around 5 AM with bilateral lower quadrant abdominal pain. Patient states that the pain made her vomit. Patient then had the urge to have a bowel movement which was watery. She has not had a bowel movement since. She has tolerated oral intake however throughout the day without any further vomiting. She also states that it feels like it might radiate from her low back on the right down to her groin. Last menstrual period was at the end of June. She does not know whether or not she could be or not. She denies any vaginal discharge dysuria chest pain shortness of breath fever chills hemoptysis hematochezia melena. Related Data Home Medications ?Medication ?Instructions ?Recorded ?Confirmed escitalopram oxalate 20 mg tablet 20 mg PO DAILY 03/01/24 03/01/24 hydroxyzine HCl 25 mg tablet mg PO HS 03/01/24 03/01/24 Previous Rx's ?Medication ?Instructions ?Recorded vits no.126-ferrous fum 1 tab PO DAILY #30 tabs 03/01/24 28 mg iron-folic acid 800 mcg tablet (Classic ) Allergies Allergy/AdvReac Type Severity Reaction Status Date / Time No Known Allergies Allergy Verified 03/01/24 10:50 PFS <NATALY Maki - Last Filed: 08/01/24 19:42> [facility] Disclaimer: The information contained in this section may have been updated after the patient was seen, as this information can be updated by other users. Medical History Anxiety Depression Surgical History Hx of appendectomy S/P dilation and curettage Hx of myringoplasty History of tonsillectomy and adenoidectomy Family History Other Asthma Cancer Diabetes Heart attack Hyperlipidemia Hypertension Social History Smoking Status: Former smoker tobacco type: e-cigarettes alcohol intake: never substance use type: denies use current occupational status: employed Travel in the last 8 weeks: None housing: apartment marital status: single number of children: 1 do you feel safe at home: Yes victim of physical abuse: No victim of emotional abuse: No victim of sexual abuse: No Have you lived/traveled outside [place] in past 30 days?: No Contact w/someone who lives/traveled outside US past 30 days?: No Exposure to someone with infectious disease in past 14 days?: No Do you have a fever (greater than 100.4 F or 38 C)?: No Have you tested positive for COVID-19: No Exposed to someone with COVID-19 in past 14 days?: No Do you have a sore throat?: No Do you have a cough?: No Do you have any weakness?: No Do you have any diarrhea?: No Are you experiencing any unusual bleeding?: No Do you have any muscle aches/pain?: No Do you have any abdominal pain?: No Are you experiencing loss of taste or smell?: No Other Medical History Have you received the Flu Vaccine for this season: No Have you received the Pneumonia Vaccine: No <NATALY Maki - Last Filed: 08/01/24 19:42> ROS Obtained: Yes Systems reviewed as appropriate & no additional complaints except as documented Physical Exam <NATALY Maki - Last Filed: 08/01/24 19:42> General General appearance: alert and in no apparent distress Respiratory Respiratory exam: Present normal lung sounds bilaterally Cardiovascular Cardiovascular exam: Present regular rate Neurological Exam Neurological exam: Present alert and oriented X3 Medical Decision Making <NATALY Maki - Last Filed: 08/01/24 19:42> Medical Records Medical records reviewed: Yes I reviewed the patient's medical records. Screening: Per USPSTF and CDC recommendations, given the prevalence of disease in our region, it is our hospital?s policy to screen for HIV and viral Hepatitis for all patients aged 18 and over and those with ongoing risk factors. Tera Inquiry Pt receiving controlled substance: No Vital Signs: 08/01/24 17:33 08/01/24 18:00 08/01/24 18:15 Temperature 98.4 F Temperature Source Oral Pulse Rate 80 78 Pulse Rate [Right Radial] 114 H Respiratory Rate 18 Blood Pressure 129/70 Blood Pressure [Right Radial Artery] 121/57 L Blood Pressure Mean [Right Radial Artery] 78 Blood Pressure Source Blood Pressure Position 02 Sat by Pulse Oximetry 100 100 100 Oxygen Delivery Method Room Air 08/01/24 18:45 08/01/24 20:00 Temperature 97.9 F Temperature Source Oral Pulse Rate 71 72 Pulse Rate [Right Radial] Respiratory Rate 14 Blood Pressure 124/70 Blood Pressure [Right Radial Artery] Blood Pressure Mean [Right Radial Artery] Blood Pressure Source Automatic Cuff Blood Pressure Position Supine 02 Sat by Pulse Oximetry 96 Oxygen Delivery Method Room Air Lab Data Lab results reviewed: Yes I reviewed the patient's lab results. Lab Results 08/01/24 17:23: Urine Color Yellow, Urine Appearance Cloudy, Urine pH 8.5, Ur Specific Ketchum 1.020, Urine Protein Negative, Urine Glucose (UA) Negative, Urine Ketones Negative, Urine Blood Negative, Urine Nitrate Negative, Urine Bilirubin Negative, Urine Urobilinogen 1.0, Ur Leukocyte Esterase Negative, Urine RBC 5-10, Urine WBC 10-20, Ur Squamous Epith Cells 20-50, Urine Bacteria 4+ 08/01/24 17:43: WBC 7.6, RBC 4.48, Hgb 12.9, Hct 38.5, MCV 85.9, MCH 28.8, MCHC 33.5, RDW 11.9, Plt Count 275, MPV 9.6, Neut % (Auto) 64.2, Lymph % (Auto) 22.0, Lewis % (Auto) 11.5 H, Eos % (Auto) 1.7, Baso % (Auto) 0.3, Neut # (Auto) 4.9, Lymph # (Auto) 1.7, Lewis # (Auto) 0.9, Eos # (Auto) 0.1, Baso # (Auto) 0.0, PT 11.4, INR 1.02, Sodium 138, Potassium 3.6, Chloride 104, Carbon Dioxide 27, Anion Gap 10.6, BUN 8, Creatinine 0.60, Estimated Creat Clear 185, Estimated GFR 122, Est GFR ( Amer) 147, Glucose 87, Calcium 9.0, Magnesium 1.8, Total Bilirubin 0.6, AST 46 H, ALT 18, Alkaline Phosphatase 87, Total Protein 7.9, Albumin 4.5, Globulin 3.4 H, Albumin/Globulin Ratio 1.3, Lipase 85, Procalcitonin 0.031, Serum HCG, Qual Negative 08/01/24 17:50: Lactate 1.3 08/01/24 17:43 08/01/24 17:43 Orders (Tests/Meds): ED MEDICATIONS Discontinued Medications Generic Name Dose Route Start Last Admin Trade Name Vamshiq PRN Reason Stop Dose Admin Acetaminophen 1,000 mg 08/01/24 17:27 08/01/24 17:54 Acetaminophen 1,000mg/100ml Vial IV 08/01/24 17:28 1,000 mg ONCE ONE Administration Iopamidol 75 ml 08/01/24 18:30 08/01/24 18:31 Iopamidol-370 (76%);100ml Bottle IV 08/01/24 18:31 75 ml ONCE ONE Administration Ketorolac Tromethamine 15 mg 08/01/24 17:27 08/01/24 18:24 Ketorolac 30mg/Ml Vial IV 08/01/24 17:28 15 mg ONCE ONE Administration Ondansetron HCl 4 mg 08/01/24 17:27 08/01/24 17:54 Ondansetron 4mg/2ml Vial IV 08/01/24 17:28 4 mg ONCE ONE Administration Sodium Chloride 10 ml 08/01/24 18:30 08/01/24 18:31 Sodium Chloride 0.9% 10ml Syr (Rad Only) IV 08/01/24 18:31 10 ml ONCE ONE Administration ORDERS Category Date Time Status CT abdomen pelvis w con Stat Cat Scan 08/01/24 17:27 Completed US transvaginal Stat Exams 08/01/24 18:51 Completed CBC w/Auto Diff [Complete Blood Count Auto Diff] Stat Lab 08/01/24 17:43 Completed CMP [Comprehensive Metabolic Panel] Stat Lab 08/01/24 17:43 Completed HCG Qualitative, Serum Stat Lab 08/01/24 17:43 Completed HIV Combo Routine Lab 08/01/24 17:43 Received Hep C Ab with Reflex to RNA Stat Lab 08/01/24 17:43 Received INR [Prothrombin Time INR] Stat Lab 08/01/24 17:43 Completed Lactic Acid Stat Lab 08/01/24 17:50 Completed Lipase Stat Lab 08/01/24 17:43 Completed Magnesium Stat Lab 08/01/24 17:43 Completed Procalcitonin Stat Lab 08/01/24 17:43 Completed UA [Urinalysis and Microscopic] Stat Lab 08/01/24 17:23 Completed Urine Culture Stat Micro 08/01/24 17:23 Received Medical Decision Narrative: In summary patient is a 24-year-old female who presents to the emergency department for evaluation of acute abdominal pain. Patient is initially normotensive 121/57 tachycardic at 114 breathing 18 times a minute satting at 100% room air upon arrival, afebrile. Physical exam is remarkable for mild bilateral lower quadrant abdominal tenderness without rebound or guarding or rigidity. Bowel sounds normal active. There is no CVA tenderness to percussion.. Differential diagnosis includes cystitis versus urinary tract infection versus constipation versus diverticulitis versus kidney stone versus appendicitis versus ovarian cyst etc. Initial workup will be conducted with hematologic labs CT scan abdomen pelvis urinalysis.. Initial interventions include crystalloid bolus Tylenol Zofran Toradol. Initial workup reviewed by me shows that her hematologic labs are nonactionable and my informal interpretation of CT scan abdomen pelvis shows a left 3 cm adnexal cyst. Upon repeat evaluation patient did have significant reduction in her discomfort after initial interventions however given the size of the cyst we will order a transvaginal ultrasound to rule out torsion. Transvaginal ultrasound actually is normal with no evidence of interrupted flow and shows a 3.4 x 2.0 proteinaceous/hemorrhagic cyst. Given this patient is appropriate for discharge with instructions to continue taking Tylenol alternating with ibuprofen and follow-up with her EARLY CHILDHOOD EDUCATOR AIDE. <Ace Marroquin MD - Last Filed: 08/01/24 21:22> Vital Signs: 08/01/24 17:33 08/01/24 18:00 08/01/24 18:15 Temperature 98.4 F Temperature Source Oral Pulse Rate 80 78 Pulse Rate [Right Radial] 114 H Respiratory Rate 18 Blood Pressure 129/70 Blood Pressure [Right Radial Artery] 121/57 L Blood Pressure Mean [Right Radial Artery] 78 Blood Pressure Source Blood Pressure Position 02 Sat by Pulse Oximetry 100 100 100 Oxygen Delivery Method Room Air 08/01/24 18:45 08/01/24 20:00 Temperature 97.9 F Temperature Source Oral Pulse Rate 71 72 Pulse Rate [Right Radial] Respiratory Rate 14 Blood Pressure 124/70 Blood Pressure [Right Radial Artery] Blood Pressure Mean [Right Radial Artery] Blood Pressure Source Automatic Cuff Blood Pressure Position Supine 02 Sat by Pulse Oximetry 96 Oxygen Delivery Method Room Air Lab Data Lab Results 08/01/24 17:23: Urine Color Yellow, Urine Appearance Cloudy, Urine pH 8.5, Ur Specific Ketchum 1.020, Urine Protein Negative, Urine Glucose (UA) Negative, Urine Ketones Negative, Urine Blood Negative, Urine Nitrate Negative, Urine Bilirubin Negative, Urine Urobilinogen 1.0, Ur Leukocyte Esterase Negative, Urine RBC 5-10, Urine WBC 10-20, Ur Squamous Epith Cells 20-50, Urine Bacteria 4+ 08/01/24 17:43: WBC 7.6, RBC 4.48, Hgb 12.9, Hct 38.5, MCV 85.9, MCH 28.8, MCHC 33.5, RDW 11.9, Plt Count 275, MPV 9.6, Neut % (Auto) 64.2, Lymph % (Auto) 22.0, Lewis % (Auto) 11.5 H, Eos % (Auto) 1.7, Baso % (Auto) 0.3, Neut # (Auto) 4.9, Lymph # (Auto) 1.7, Lewis # (Auto) 0.9, Eos # (Auto) 0.1, Baso # (Auto) 0.0, PT 11.4, INR 1.02, Sodium 138, Potassium 3.6, Chloride 104, Carbon Dioxide 27, Anion Gap 10.6, BUN 8, Creatinine 0.60, Estimated Creat Clear 185, Estimated GFR 122, Est GFR ( Amer) 147, Glucose 87, Calcium 9.0, Magnesium 1.8, Total Bilirubin 0.6, AST 46 H, ALT 18, Alkaline Phosphatase 87, Total Protein 7.9, Albumin 4.5, Globulin 3.4 H, Albumin/Globulin Ratio 1.3, Lipase 85, Procalcitonin 0.031, Serum HCG, Qual Negative 08/01/24 17:50: Lactate 1.3 Orders (Tests/Meds): ED MEDICATIONS Discontinued Medications Generic Name Dose Route Start Last Admin Trade Name Freq PRN Reason Stop Dose Admin Acetaminophen 1,000 mg 08/01/24 17:27 08/01/24 17:54 Acetaminophen 1,000mg/100ml Vial IV 08/01/24 17:28 1,000 mg ONCE ONE Administration Iopamidol 75 ml 08/01/24 18:30 08/01/24 18:31 Iopamidol-370 (76%);100ml Bottle IV 08/01/24 18:31 75 ml ONCE ONE Administration Ketorolac Tromethamine 15 mg 08/01/24 17:27 08/01/24 18:24 Ketorolac 30mg/Ml Vial IV 08/01/24 17:28 15 mg ONCE ONE Administration Ondansetron HCl 4 mg 08/01/24 17:27 08/01/24 17:54 Ondansetron 4mg/2ml Vial IV 08/01/24 17:28 4 mg ONCE ONE Administration Sodium Chloride 10 ml 08/01/24 18:30 08/01/24 18:31 Sodium Chloride 0.9% 10ml Syr (Rad Only) IV 08/01/24 18:31 10 ml ONCE ONE Administration ORDERS Category Date Time Status CT abdomen pelvis w con Stat Cat Scan 08/01/24 17:27 Completed US transvaginal Stat Exams 08/01/24 18:51 Completed CBC w/Auto Diff [Complete Blood Count Auto Diff] Stat Lab 08/01/24 17:43 Completed CMP [Comprehensive Metabolic Panel] Stat Lab 08/01/24 17:43 Completed HCG Qualitative, Serum Stat Lab 08/01/24 17:43 Completed HIV Combo Routine Lab 08/01/24 17:43 Received Hep C Ab with Reflex to RNA Stat Lab 08/01/24 17:43 Received INR [Prothrombin Time INR] Stat Lab 08/01/24 17:43 Completed Lactic Acid Stat Lab 08/01/24 17:50 Completed Lipase Stat Lab 08/01/24 17:43 Completed Magnesium Stat Lab 08/01/24 17:43 Completed Procalcitonin Stat Lab 08/01/24 17:43 Completed UA [Urinalysis and Microscopic] Stat Lab 08/01/24 17:23 Completed Urine Culture Stat Micro 08/01/24 17:23 Received Medical Decision Narrative: In summary patient is a 24-year-old female who presents to the emergency department for evaluation of acute abdominal pain. Patient is initially normotensive 121/57 tachycardic at 114 breathing 18 times a minute satting at 100% room air upon arrival, afebrile. Physical exam is remarkable for mild bilateral lower quadrant abdominal tenderness without rebound or guarding or rigidity. Bowel sounds normal active. There is no CVA tenderness to percussion.. Differential diagnosis includes cystitis versus urinary tract infection versus constipation versus diverticulitis versus kidney stone versus appendicitis versus ovarian cyst etc. Initial workup will be conducted with hematologic labs CT scan abdomen pelvis urinalysis.. Initial interventions include crystalloid bolus Tylenol Zofran Toradol. Initial workup reviewed by me shows that her hematologic labs are nonactionable and my informal interpretation of CT scan abdomen pelvis shows a left 3 cm adnexal cyst. Upon repeat evaluation patient did have significant reduction in her discomfort after initial interventions however given the size of the cyst we will order a transvaginal ultrasound to rule out torsion. Transvaginal ultrasound actually is normal with no evidence of interrupted flow and shows a 3.4 x 2.0 proteinaceous/hemorrhagic cyst. Given this patient is appropriate for discharge with instructions to continue taking Tylenol alternating with ibuprofen and follow-up with her EARLY CHILDHOOD EDUCATOR AIDE. RUSS attestation I was consulted by the RUSS, and we discussed the complexity of problems being addressed. I approved the treatment and management plan for this patient's care in the emergency department, thus performing a substantial portion of the medical decision making. CT abdomen/pelvis with IV contrast was independently interpreted by me, revealing of a large left-sided ovarian cyst. Ultrasound was obtained and also ended pendantly interpreted by me, redemonstrating cyst. No evidence of interrupted flow. On my repeat examination of the patient she was completely asymptomatic. Appropriate for discharge and follow-up with [facility] QA LAB TECHNICIAN. Ace Marroquin MD Critical Care <NATALY Maki - Last Filed: 08/01/24 19:42> Critical Care Time Critical Care Time: No
--- NOTE | 2024-08-01 17:27 | CT_ITS ---
PROCEDURE INFORMATION: Exam: CT Abdomen And Pelvis With Contrast Exam date and time: 08/01/2024 6:30 PM Age: 24 years old Clinical indication: Abdominal pain; Additional info: Bilateral lower abdominal pain TECHNIQUE: Imaging protocol: Computed tomography of the abdomen and pelvis with contrast. Radiation optimization: All CT scans at this facility use at least one of these dose optimization techniques: automated exposure control; mA and/or kV adjustment per patient size (includes targeted exams where dose is matched to clinical indication); or iterative reconstruction. Contrast material: ISOVUE; Contrast volume: 75 ml; Contrast route: IV; COMPARISON: US TRANSVAGINAL 03/05/2024 2:29 PM FINDINGS: Lungs: The visualized lung bases demonstrate no focal infiltrates. Liver: The liver appears within normal limits. Gallbladder and biliary ducts: The gallbladder is normal. There is no evidence of biliary ductal dilation. Pancreas: The pancreas is normal. Spleen: The spleen is normal. Adrenal glands: The adrenal glands appear within normal limits. Kidneys and ureters: The kidneys are normal. Stomach and bowel: The stomach appears within normal limits. No wall thickening or inflammatory change. Appendix: No evidence of appendicitis. Intraperitoneal space: No free air. No evidence for focal fluid collection or ascites. No evidence for omental thickening. Vasculature: Unremarkable. No abdominal aortic aneurysm. Lymph nodes: Unremarkable. No enlarged lymph nodes. Urinary bladder: The bladder appears within normal limits. No wall thickening. Reproductive: The uterus and adnexal structures appear normal. Proteinaceous cyst left ovary measures 3 cm. Bones/joints: Unremarkable. No acute fracture. Soft tissues: Unremarkable. IMPRESSION: 1. Proteinaceous cyst left ovary measures 3 cm. No imaging follow-up necessary based on CT appearance. 2. The remainder of the examination is unremarkable.
[2024-08-01 17:33] VITALS: BP 121/57; PULSE 114; RESP 18; TEMP 36.9; O2SAT 100; BMI 29.9
[2024-08-01] MEDS: ACETAMINOPHEN 1,000MG/100ML VIAL 1000 MG IV (17:54)
[2024-08-01] MEDS: ONDANSETRON 4MG/2ML VIAL 4 MG IV (17:54)
[2024-08-01 18:00] VITALS: BP 129/70; PULSE 80; O2SAT 100
[2024-08-01 18:01] LABS: White Blood Count 7.6 K/mm3 (4.8-10.8)
[2024-08-01 18:02] LABS: Hematocrit 38.5 % (37.0-47.0); Hemoglobin 12.9 g/dL (12.2-16.2); Mean Corpuscular Hemoglobin 28.8 pg (27.0-31.2); Mean Corpuscular Volume 85.9 fl (81-99); Red Blood Count 4.48 M/mm3 (4.20-5.40)
[2024-08-01 18:02] LABS: Microscopic, Urine URINE MICROSCOPIC (MICROSCOPIC)
[2024-08-01 18:03] LABS: Mean Corpuscular HGB Conc 33.5 g/dL (31.8-35.4); Mean Platelet Volume 9.6 fl (7.4-10.4); Neutrophils % 64.2 % (37.0-80.0); Platelet Count 275 K/mm3 (142-424); Red Cell Distribution Width 11.9 % (11.5-17.5)
[2024-08-01 18:04] LABS: Basophils % 0.3 % (0.1-2.0); Eosinophils # 0.1 K/mm3 (0.0-0.4); Eosinophils % 1.7 % (0.1-12.0); Lymphocytes # 1.7 K/mm3 (0.7-4.5); Monocytes # 0.9 K/mm3 (0.1-1.0); Monocytes % 11.5 % (1.7-9.3); Neutrophils # 4.9 K/mm3 (1.8-7.8)
[2024-08-01 18:06] LABS: Bilirubin,Urine Negative (Negative); Blood, Urine Negative (Negative); Color,Urine YELLOW (Yellow); Glucose,Urine (UA) Negative (Negative); Ketones,Urine Negative (Negative); Leukocyte Esterase,Urine Negative (Negative); Nitrate,Urine Negative (Negative); PH,Urine 8.5 (5.0-8.5); Protein,Urine Negative (Negative)
[2024-08-01 18:15] VITALS: PULSE 78; O2SAT 100
[2024-08-01 18:19] LABS: HCG Qualitative, Serum Negative (Negative); Lipase 85 U/L (23-300); Magnesium 1.8 mg/dl (1.6-2.3)
[2024-08-01 18:20] LABS: Alanine Aminotransferase 18 U/L (12-78); Albumin Level 4.5 g/dl (3.5-5.0); Albumin/Globulin Ratio 1.3 (1.1-1.8); Alkaline Phosphatase 87 U/L (38-126); Anion Gap 10.6 mEq/L (5-15); Aspartate Amino Transferase 46 U/L (14-36); Bilirubin,Total 0.6 mg/dl (0.2-1.3); Blood Urea Nitrogen 8 mg/dl (7-17); Carbon Dioxide 27 mmol/L (22.0-30.0); Chloride 104 mmol/L (98-107); Creatinine Clearance Estimated 185 mL/min (50-200); Estimated Glomerular Filt Rate 122 ml/min (>60); GFR (African American) 147 ML/MIN (>60); Globulin 3.4 g/dL (1.3-3.2); Glucose 87 mg/dl (74-100); Potassium 3.6 mmoL/L (3.5-5.1); Sodium 138 mmol/L (136-145); Total Protein,Serum 7.9 g/dl (6.3-8.2)
[2024-08-01] MEDS: KETOROLAC 30MG/ML VIAL 15 MG IV (18:24)
[2024-08-01 18:25] LABS: INR 1.02 (0.9-1.1); Prothrombin Time 11.4 seconds (10.1-12.5)
[2024-08-01 18:27] LABS: Lactic Acid 1.3 mmol/L (0.7-2.1)
[2024-08-01] MEDS: SODIUM CHLORIDE 0.9% 10ML SYR (RAD ONLY) 10 ML IV (18:31)
[2024-08-01] MEDS: IOPAMIDOL-370 (76%);100ML BOTTLE 75 ML IV (18:31)
[2024-08-01 18:37] LABS: Procalcitonin 0.031 ng/mL (0.0-2.0)
[2024-08-01 18:45] VITALS: PULSE 71; O2SAT 96
[2024-08-01 18:48] LABS: Appearance,Urine Cloudy (Clear); Squamous Epithelial Cell,Urine 20-50 #/hpf (0-5)
[2024-08-01 18:49] LABS: Bacteria,Urine 4+ /lpf
--- NOTE | 2024-08-01 18:51 | US_ITS ---
PROCEDURE INFORMATION: Exam: US Duplex Artery and Vein of the Abdominal and/or Reproductive Organs. Complete Ovaries Exam date and time: 08/01/2024 6:54 PM Clinical indication: Pelvic pain; Additional info: Bilatlower quadrant abd pain rule out torsion TECHNIQUE: Imaging protocol: Real-time duplex ultrasound scan of the arterial and venous flow with color Doppler flow and spectral waveform analysis with image documentation. Duplex exam was performed to evaluate for torsion and other vascular conditions. COMPARISON: No relevant prior studies available. FINDINGS: Right ovary/adnexa: Normal arterial and venous Doppler waveforms. No evidence of ovarian torsion. Left ovary/adnexa: Normal arterial and venous Doppler waveforms. No evidence of ovarian torsion. IMPRESSION: Normal ovarian arterial and venous vascular flow. No evidence ovarian torsion. PROCEDURE INFORMATION: Exam: US Pelvis, Transvaginal, Non-Obstetric Exam date and time: 08/01/2024 6:54 PM Age: 24 years old Clinical indication: Pelvic pain; Additional info: Bilatlower quadrant abd pain rule out torsion TECHNIQUE: Imaging protocol: Real-time transvaginal pelvic (non-obstetric) ultrasound with image documentation. Transvaginal imaging was used for better evaluation of the endometrium, adnexa, and/or cervix. COMPARISON: US TRANSVAGINAL 03/05/2024 2:29 PM FINDINGS: Uterus: The endometrial stripe measures 6 mm in bilayer thickness. Right ovary/adnexa: Right ovary measures 3.3 x 2.5 x 1.9 cm. Normal morphology and duplex Doppler flow right ovary. Left ovary/adnexa: Proteinaceous/hemorrhagic cyst left ovary measures 3.4 x 2.0 cm. Normal duplex Doppler flow left ovary. Left ovary measures 3.5 x 4.6 x 3.3 cm. Urinary bladder: Urinary bladder is limited. Intraperitoneal space: No free fluid. IMPRESSION: 1. Proteinaceous/hemorrhagic cyst left ovary measures 3.4 x 2.0 cm. 2. The remainder of the examination is unremarkable.
[2024-08-01 20:00] VITALS: BP 124/70; PULSE 72; RESP 14; TEMP 36.6; O2SAT 98
[2024-08-01 22:13] LABS: HIV Combo NEGATIVE (Negative)
[2024-08-03 08:15] LABS: HCV Ab Non Reactive (Non Reactive)
== END 2024-08-01 20:08 | disposition home or self-care (01) ==
PROVIDERS: Physician Assistant; Emergency Provider Student in an Organized Health Care Education/Training Program; PCP Internal Medicine Adolescent Medicine
DX: N83.202 Unspecified ovarian cyst, left side (principal); R10.31 Right lower quadrant pain; R10.32 Left lower quadrant pain; R11.10 Vomiting, unspecified; R19.7 Diarrhea, unspecified; F17.290 Nicotine dependence, other tobacco product, uncomplicated
CPT/HCPCS: 74177; 76830; 80053; 81001; 83605; 83690; 83735; 84145; 84703; 85025; 85610; 86803; 87086; 87088; 87389; 96374; 96375; 99285; J0131; J1885; J2405; Q9967

== ENCOUNTER 2024-09-19 13:55 | Outpatient (CLI) | payer MEDICAID, SELFPAY ==
--- NOTE | 2024-09-19 13:59 | US_ITS ---
PROCEDURE: US TRANSVAGINAL CLINICAL INDICATION: F/u on Left Hemorrhagic Ovarian Cyst and LLQP COMPARISON: US US TRANSVAGINAL from 08/01/[address] ABDOMEN PELVIS W CON from 08/01/2024 FINDINGS: Transvaginal sonographic images of the pelvis were obtained. UTERUS: 8.0cm x 5.6cmx 3.8 cm anteverted with a combined endometrial thickness of 3.5mm. LEFT OVARY: 2.9 cmx2.8 cmx3cm with a volume of 13.2ml. The previously described hemorrhagic cyst in the left ovary has resolved. The ovary has multiple peripheral follicles consistent with a polycystic ovary. RIGHT OVARY: 3.9 cm x 2.5cmx2.6 cm with a volume of 13.3ml. The right ovary has multiple peripheral follicles consistent with a polycystic ovary. Both ovaries are seen and appear normal. Doppler flow to both ovaries are seen. There is a trace of fluid in the cul-de-sac. IMPRESSION: 1. Anteverted uterus normal in shape and size. The endometrium is thin measuring 3.5 mm. 2. Both ovaries are seen and appear polycystic. 3. The previously described hemorrhagic cyst in the left ovary has now resolved. 4. There is a trace of fluid in the cul-de-sac. Dictated by: Saeid Vila MD 09/19/2024 15:19 Saeid Vila MD in [facility] 09/19/2024 15:19
== END 2024-09-19 23:59 | disposition home or self-care (01) ==
LOC: RAD 13:56
PROVIDERS: PCP Internal Medicine Adolescent Medicine; Visit Provider Nurse Practitioner Obstetrics & Gynecology
DX: R10.32 Left lower quadrant pain (principal); N83.202 Unspecified ovarian cyst, left side
CPT/HCPCS: 76830

== ENCOUNTER 2024-11-08 12:49 | Outpatient (CLI) | payer MEDICAID, SELFPAY ==
[2024-11-08 13:59] LABS: HCG,Quantitative 26 mIU/ml (0-5.42)
[2024-11-09 03:36] LABS: Progesterone 10.3 ng/mL (.)
== END 2024-11-08 23:59 | disposition home or self-care (01) ==
LOC: LAB 12:50
PROVIDERS: PCP Internal Medicine Adolescent Medicine; Visit Provider Nurse Practitioner Obstetrics & Gynecology
DX: Z32.01 Encounter for pregnancy test, result positive (principal)
CPT/HCPCS: 36415; 84144; 84702

== ENCOUNTER 2024-11-12 13:57 | Outpatient (CLI) | payer MEDICAID, SELFPAY ==
[2024-11-12 14:52] LABS: HCG,Quantitative 280 mIU/ml (0-5.42)
== END 2024-11-12 23:59 | disposition home or self-care (01) ==
LOC: LAB 13:58
PROVIDERS: PCP Internal Medicine Adolescent Medicine; Visit Provider Nurse Practitioner Obstetrics & Gynecology
DX: Z32.01 Encounter for pregnancy test, result positive (principal)
CPT/HCPCS: 36415; 84702

== ENCOUNTER 2024-11-25 19:06 | Emergency (ER) | payer MEDICAID, SELFPAY ==
[2024-11-25] VITALS (9 sets, daily range): BP systolic 120–132; BP diastolic 73–78; PULSE 63–98; RESP 18–20; TEMP 37.2–37.4; O2SAT 97–100; BMI 30.9
[2024-11-25 19:39] LABS: Basophils % 0.2 % (0.1-2.0); Eosinophils # 0.1 K/mm3 (0.0-0.4); Hematocrit 43.2 % (37.0-47.0); Hemoglobin 14.5 g/dL (12.2-16.2); Lymphocytes # 2.2 K/mm3 (0.7-4.5); Lymphocytes % 24.3 % (10-50); Mean Corpuscular HGB Conc 33.6 g/dL (31.8-35.4); Mean Corpuscular Hemoglobin 28.8 pg (27.0-31.2); Mean Corpuscular Volume 85.9 fl (81-99); Mean Platelet Volume 9.3 fl (7.4-10.4); Monocytes # 0.7 K/mm3 (0.1-1.0); Monocytes % 7.8 % (1.7-9.3); Neutrophils # 6.1 K/mm3 (1.8-7.8); Neutrophils % 66.5 % (37.0-80.0); Nucleated Red Blood Cells # 0 10^3/uL; Nucleated Red Blood Cells % 0 %; Platelet Count 322 K/mm3 (142-424); Red Blood Count 5.03 M/mm3 (4.20-5.40); Red Cell Distribution Width 12.4 % (11.5-17.5); Red Cell Distribution Width-SD 38.6 fL; White Blood Count 9.1 K/mm3 (4.8-10.8)
[2024-11-25 19:42] LABS: Albumin Level 4.9 g/dl (3.5-5.0); Chloride 101 mmol/L (98-107); Potassium 3.8 mmoL/L (3.5-5.1); Sodium 138 mmol/L (136-145)
[2024-11-25 19:45] LABS: Alanine Aminotransferase 25 U/L (12-78); Albumin/Globulin Ratio 1.2 (1.1-1.8); Alkaline Phosphatase 76 U/L (38-126); Anion Gap 14.8 mEq/L (5-15); Aspartate Amino Transferase 42 U/L (14-36); Bilirubin,Total 0.7 mg/dl (0.2-1.3); Blood Urea Nitrogen 8 mg/dl (7-17); Calcium 9.3 mg/dl (8.4-10.2); Carbon Dioxide 26 mmol/L (22.0-30.0); Creatinine Clearance Estimated 185 mL/min (50-200); Estimated Glomerular Filt Rate 122 ml/min (>60); GFR (African American) 147 ML/MIN (>60); Globulin 4.1 g/dL (1.3-3.2); Glucose 99 mg/dl (74-100)
[2024-11-25] MEDS: ONDANSETRON 4MG/2ML VIAL 4 MG IV (19:45)
--- NOTE | 2024-11-25 19:55 | ED_ITS ---
Discharge Plan Disposition Patient Disposition: Home, Self-Care Condition: Good Prescriptions Prescriptions: New ondansetron 4 mg tablet,disintegrating 4 mg PO Q8H PRN (Reason: nausea and vomiting) 3 Days Qty: 9 0RF No Action escitalopram oxalate 20 mg tablet 20 mg PO DAILY Patient Comments: TAKE 1 TABLET BY MOUTH EVERY DAY FOR 90 DAYS hydroxyzine HCl 25 mg tablet PO HS Referrals Follow up/Referrals: Saeid Vila MD [Staff Physician] - See instructions Taye Hernandez MD [Primary Care Provider] - See instructions Activity Restrictions/Add. Instructions Additional Instructions/Restrictions: You were seen for vomiting in early . Please follow up with your OBGYN. Clinical Impressions Clinical Impression: Vomiting during Instructions Patient Instructions: Nausea of (Alternative Therapy) Print Language Print Language: Sammarinese Discharge ED Provider: Blake Granger General Adult HPI <NATALY Bianchi - Last Filed: 11/25/24 21:07> General Chief complaint: Nausea/Vomiting/Diarrhea Stated complaint: 6 weeks unable to keep anything down Time Seen by Provider: 11/25/24 19:11 Mode of Arrival: Ambulatory Source of Information: Patient Description of Symptoms (Recalled from ER Triage Doc. by RN): pt here w/ nv dizziness x5 days History of Present Illness HPI narrative: Patient presents with nausea and vomiting in . She reports that she is scheduled to see her OB on December 11. She has had vomiting for 5 days. She has not had any medication at home to take. She has had some diarrhea. Denies any vaginal bleeding. She has had some abdominal cramping. Denies fever. complaint: Vomiting Related Data Home Medications ?Medication ?Instructions ?Recorded ?Confirmed escitalopram oxalate 20 mg tablet 20 mg PO DAILY 03/01/24 09/17/24 hydroxyzine HCl 25 mg tablet mg PO HS 03/01/24 09/17/24 Previous Rx's ?Medication ?Instructions ?Recorded ondansetron 4 mg disintegrating 4 mg PO Q8H PRN nausea and 11/25/24 tablet vomiting 3 days #9 tabs Allergies Allergy/AdvReac Type Severity Reaction Status Date / Time No Known Allergies Allergy Verified 11/25/24 19:26 PFSH <NATALY Bianchi - Last Filed: 11/25/24 21:07> [facility] Disclaimer: The information contained in this section may have been updated after the patient was seen, as this information can be updated by other users. Medical History Anxiety Depression Surgical History Hx of appendectomy S/P dilation and curettage Hx of myringoplasty History of tonsillectomy and adenoidectomy Family History Other Asthma Cancer Diabetes Heart attack Hyperlipidemia Hypertension Social History Smoking Status: Current every day smoker tobacco type: e-cigarettes alcohol intake: never substance use type: denies use current occupational status: employed Travel in the last 8 weeks: None housing: apartment marital status: single number of children: 1 do you feel safe at home: Yes victim of physical abuse: No victim of emotional abuse: No victim of sexual abuse: No Have you lived/traveled outside US in past 30 days?: No Contact w/someone who lives/traveled outside US past 30 days?: No Exposure to someone with infectious disease in past 14 days?: No Do you have a fever (greater than 100.4 F or 38 C)?: No Have you tested positive for COVID-19: No Exposed to someone with COVID-19 in past 14 days?: No Do you have a sore throat?: No Do you have a cough?: No Do you have any weakness?: No Do you have any diarrhea?: No Are you experiencing any unusual bleeding?: No Do you have any muscle aches/pain?: No Do you have any abdominal pain?: No Are you experiencing loss of taste or smell?: No Other Medical History Have you received the Flu Vaccine for this season: No Have you received the Pneumonia Vaccine: No <NATALY Bianchi - Last Filed: 11/25/24 21:07> ROS Obtained: Yes Systems reviewed as appropriate & no additional complaints except as documented Physical Exam <NATALY Bianchi - Last Filed: 11/25/24 21:07> General General appearance: alert and in no apparent distress Head Head exam: atraumatic and normocephalic Eye Eye exam: Present normal appearance and EOMI Chest Chest inspection: Present symmetric chest wall rise Respiratory Respiratory exam: Present normal lung sounds bilaterally; Absent wheezes or stridor Cardiovascular Cardiovascular exam: Present regular rate and normal rhythm; Absent systolic murmur Abdominal Exam Abdominal exam: Present soft; Absent distention, tenderness or guarding Extremities Exam Extremities exam: Present full ROM Neurological Exam Neurological exam: Present alert and oriented X3 Psychiatric Psychiatric exam: Present normal affect and normal mood Skin Skin exam: Present warm, dry and intact Medical Decision Making <NATALY Bianchi - Last Filed: 11/25/24 21:07> Medical Records Screening: Per USPSTF and CDC recommendations, given the prevalence of disease in our region, it is our hospital?s policy to screen for HIV and viral Hepatitis for all patients aged 18 and over and those with ongoing risk factors. Tera Inquiry Pt receiving controlled substance: No Vital Signs: 11/25/24 19:21 11/25/24 19:55 11/25/24 20:00 Temperature 99.3 F Temperature Source Oral Pulse Rate 74 67 Pulse Rate [Apical] 98 H Respiratory Rate 20 Blood Pressure 132/77 Blood Pressure [Right Arm] 129/73 Blood Pressure Mean [Right Arm] 91 02 Sat by Pulse Oximetry 100 98 97 Oxygen Delivery Method Room Air 11/25/24 20:06 11/25/24 20:15 11/25/24 20:30 Temperature Temperature Source Pulse Rate 72 64 63 Pulse Rate [Apical] Respiratory Rate Blood Pressure 120/77 124/74 Blood Pressure [Right Arm] Blood Pressure Mean [Right Arm] 02 Sat by Pulse Oximetry 97 99 98 Oxygen Delivery Method 11/25/24 20:44 11/25/24 20:46 11/25/24 21:09 Temperature 98.9 F Temperature Source Pulse Rate 71 66 80 Pulse Rate [Apical] Respiratory Rate 18 Blood Pressure 124/77 120/78 Blood Pressure [Right Arm] Blood Pressure Mean [Right Arm] 02 Sat by Pulse Oximetry 98 98 Oxygen Delivery Method Room Air Lab Data Lab Results 11/25/24 19:25: WBC 9.1, RBC 5.03, Hgb 14.5, Hct 43.2, MCV 85.9, MCH 28.8, MCHC 33.6, RDW 12.4, Plt Count 322, MPV 9.3, Neut % (Auto) 66.5, Lymph % (Auto) 24.3, [place] % (Auto) 7.8, Eos % (Auto) 1.0, Baso % (Auto) 0.2, Neut # (Auto) 6.1, Lymph # (Auto) 2.2, [place] # (Auto) 0.7, Eos # (Auto) 0.1, Baso # (Auto) 0.0, Sodium 138, Potassium 3.8, Chloride 101, Carbon Dioxide 26, Anion Gap 14.8, BUN 8, Creatinine 0.60, Estimated Creat Clear 185, Estimated GFR 122, Est GFR ( Amer) 147, Glucose 99, Calcium 9.3, Total Bilirubin 0.7, AST 42 H, ALT 25, Alkaline Phosphatase 76, Total Protein 9.0 H, Albumin 4.9, Globulin 4.1 H, Albumin/Globulin Ratio 1.2, HCG, Quant [id number] H 11/25/24 20:11: Urine Color Yellow, Urine Appearance Clear, Urine pH 7.0, Ur Specific [place] 1.020, Urine Protein Negative, Urine Glucose (UA) Negative, Urine Ketones Trace, Urine Blood Negative, Urine Nitrate Negative, Urine Bilirubin Negative, Urine Urobilinogen 1.0, Ur Leukocyte Esterase Trace, Urine RBC None, Urine WBC 5-10, Ur Squamous Epith Cells 5-10, Urine Bacteria 3+ 11/25/24 19:25 11/25/24 19:25 Orders (Tests/Meds): ED MEDICATIONS Discontinued Medications Generic Name Dose Route Start Last Admin Trade Name Freq PRN Reason Stop Dose Admin Ondansetron HCl 4 mg 11/25/24 19:32 11/25/24 19:45 Ondansetron 4mg/2ml Vial IV 11/25/24 19:33 4 mg ONCE ONE Administration Sodium Chloride 10 ml 11/25/24 19:21 Sodium Chloride 0.9% 10ml Flush Syringe IV 12/25/24 19:20 NEEDED PRN Maintain IV Site ORDERS Category Date Time Status POCUS Point of Care (ER Only) Stat Exams 11/25/24 19:36 Taken Beta HCG, Quant [HCG,Quantitative] Stat Lab 11/25/24 19:25 Completed CBC [Complete Blood Count Auto Diff] Stat Lab 11/25/24 19:25 Completed CMP [Comprehensive Metabolic Panel] Stat Lab 11/25/24 19:25 Completed Urinalysis and Microscopic Stat Lab 11/25/24 20:11 Completed Urine Culture Stat Micro 11/25/24 20:11 Received US Data US Images: Pelvis (IUP confirmed, pole and gestational sac identified) Medical Decision Narrative: In summary patient is a 24-year-old female who presents the emergency department for evaluation of vomiting and . Patient is hemodynamically upon arrival, afebrile. Unremarkable physical exam. Differential diagnosis includes dehydration, ectopic , UTI, viral illness. Initial workup will be conducted with [id number] ultrasound reveals an IUP, will also obtain labs and urinalysis. Initial inventions include IV Zofran. Initial workup reviewed by me unremarkable labs, she does have some bacteria in her urine however also has epithelial cells. Pending urine culture for further evaluation. Upon repeat evaluation patient had acceptable resolution of symptoms. Given this patient is appropriate for discharge home with prescription for Zofran and follow-up with her OB.. <Blake Granger MD - Last Filed: 11/25/24 22:16> Vital Signs: 11/25/24 19:21 11/25/24 19:55 11/25/24 20:00 Temperature 99.3 F Temperature Source Oral Pulse Rate 74 67 Pulse Rate [Apical] 98 H Respiratory Rate 20 Blood Pressure 132/77 Blood Pressure [Right Arm] 129/73 Blood Pressure Mean [Right Arm] 91 02 Sat by Pulse Oximetry 100 98 97 Oxygen Delivery Method Room Air 11/25/24 20:06 11/25/24 20:15 11/25/24 20:30 Temperature Temperature Source Pulse Rate 72 64 63 Pulse Rate [Apical] Respiratory Rate Blood Pressure 120/77 124/74 Blood Pressure [Right Arm] Blood Pressure Mean [Right Arm] 02 Sat by Pulse Oximetry 97 99 98 Oxygen Delivery Method 11/25/24 20:44 11/25/24 20:46 11/25/24 21:09 Temperature 98.9 F Temperature Source Pulse Rate 71 66 80 Pulse Rate [Apical] Respiratory Rate 18 Blood Pressure 124/77 120/78 Blood Pressure [Right Arm] Blood Pressure Mean [Right Arm] 02 Sat by Pulse Oximetry 98 98 Oxygen Delivery Method Room Air Lab Data Lab Results 11/25/24 19:25: WBC 9.1, RBC 5.03, Hgb 14.5, Hct 43.2, MCV 85.9, MCH 28.8, MCHC 33.6, RDW 12.4, Plt Count 322, MPV 9.3, Neut % (Auto) 66.5, Lymph % (Auto) 24.3, [place] % (Auto) 7.8, Eos % (Auto) 1.0, Baso % (Auto) 0.2, Neut # (Auto) 6.1, Lymph # (Auto) 2.2, [place] # (Auto) 0.7, Eos # (Auto) 0.1, Baso # (Auto) 0.0, Sodium 138, Potassium 3.8, Chloride 101, Carbon Dioxide 26, Anion Gap 14.8, BUN 8, Creatinine 0.60, Estimated Creat Clear 185, Estimated GFR 122, Est GFR ( Amer) 147, Glucose 99, Calcium 9.3, Total Bilirubin 0.7, AST 42 H, ALT 25, Alkaline Phosphatase 76, Total Protein 9.0 H, Albumin 4.9, Globulin 4.1 H, Albumin/Globulin Ratio 1.2, HCG, Quant [id number] H 11/25/24 20:11: Urine Color Yellow, Urine Appearance Clear, Urine pH 7.0, Ur Specific [place] 1.020, Urine Protein Negative, Urine Glucose (UA) Negative, Urine Ketones Trace, Urine Blood Negative, Urine Nitrate Negative, Urine Bilirubin Negative, Urine Urobilinogen 1.0, Ur Leukocyte Esterase Trace, Urine RBC None, Urine WBC 5-10, Ur Squamous Epith Cells 5-10, Urine Bacteria 3+ Orders (Tests/Meds): ED MEDICATIONS Discontinued Medications Generic Name Dose Route Start Last Admin Trade Name Freq PRN Reason Stop Dose Admin Ondansetron HCl 4 mg 11/25/24 19:32 11/25/24 19:45 Ondansetron 4mg/2ml Vial IV 11/25/24 19:33 4 mg ONCE ONE Administration Sodium Chloride 10 ml 11/25/24 19:21 Sodium Chloride 0.9% 10ml Flush Syringe IV 12/25/24 19:20 NEEDED PRN Maintain IV Site ORDERS Category Date Time Status POCUS Point of Care (ER Only) Stat Exams 11/25/24 19:36 Taken Beta HCG, Quant [HCG,Quantitative] Stat Lab 11/25/24 19:25 Completed CBC [Complete Blood Count Auto Diff] Stat Lab 11/25/24 19:25 Completed CMP [Comprehensive Metabolic Panel] Stat Lab 11/25/24 19:25 Completed Urinalysis and Microscopic Stat Lab 11/25/24 20:11 Completed Urine Culture Stat Micro 11/25/24 20:11 Received Medical Decision Narrative: In summary patient is a 24-year-old female who presents the emergency department for evaluation of vomiting and . Patient is hemodynamically upon arrival, afebrile. Unremarkable physical exam. Differential diagnosis includes dehydration, ectopic , UTI, viral illness. Initial workup will be conducted with [id number] ultrasound reveals an IUP, will also obtain labs and urinalysis. Initial inventions include IV Zofran. Initial workup reviewed by me unremarkable labs, she does have some bacteria in her urine however also has epithelial cells. Pending urine culture for further evaluation. Upon repeat evaluation patient had acceptable resolution of symptoms. Given this patient is appropriate for discharge home with prescription for Zofran and follow-up with her OB.. I was consulted by the RUSS, and we discussed the complexity of the problems being addressed. I approved the treatment and management plan for this patient's care in the Emergency Department, thus performing a substantive portion of the medical decision making. Blake Granger MD Procedures <Blake Granger MD - Last Filed: 11/25/24 22:16> Limited Ultrasound Indication:: Limited OB ultrasound Indication: Positive test, vomiting Identified structures: -Uterus -Left adnexa -Right adnexa -Pouch of [place] Findings: Uterus: Gestational sac with yolk sac, no definitive pole Right adnexa: -Normal Left adnexa: -Normal Cul de sac: -free fluid absent Impression: -IUP: Gestational sac with yolk sac with no obvious, definitive pole on transabdominal -Ectopic : Absent -Free fluid: Absent Images were saved to permanent archive The study was technically adequate CPT Transabdominal: 62319-98 This study was performed by me, and I personally interpreted all images/videos. Based on my clinical judgement, these images were adequate and did not necessitate further imaging Critical Care <NATALY Bianchi - Last Filed: 11/25/24 21:07> Critical Care Time Critical Care Time: No
[2024-11-25 20:15] LABS: Microscopic, Urine URINE MICROSCOPIC (MICROSCOPIC)
[2024-11-25 20:18] LABS: Appearance,Urine CLEAR (Clear); Bilirubin,Urine Negative (Negative); Blood, Urine Negative (Negative); Color,Urine YELLOW (Yellow); Glucose,Urine (UA) Negative (Negative); Ketones,Urine TRACE (Negative); Leukocyte Esterase,Urine TRACE (Negative); Nitrate,Urine Negative (Negative); Protein,Urine Negative (Negative)
[2024-11-25 20:31] LABS: Bacteria,Urine 3+ /lpf
[2024-11-25 21:01] LABS: HCG,Quantitative 46255 mIU/ml (0-5.42)
--- NOTE | 2024-11-28 10:24 | PC.NURSE ---
I spoke with about the pts prelim urine results. called in nitrofurantoin for the pt. I notified the pt of her prelim results and that an antibiotic had been sent in.
== END 2024-11-25 21:10 | disposition home or self-care (01) ==
PROVIDERS: Physician Assistant; Emergency Provider Emergency Medicine; PCP Internal Medicine Adolescent Medicine
DX: O21.9 Vomiting of pregnancy, unspecified (principal); R19.7 Diarrhea, unspecified; R42 Dizziness and giddiness; Z3A.01 Less than 8 weeks gestation of pregnancy
CPT/HCPCS: 80053; 81001; 84702; 85025; 87086; 96374; 99284; J2405

== ENCOUNTER 2024-12-18 14:48 | Outpatient (CLI) | payer MEDICAID, SELFPAY ==
--- NOTE | 2024-12-18 15:00 | US_ITS ---
PROCEDURE: US OB <= 14 WEEKS FETUS CLINICAL INDICATION: Needs for dates COMPARISON: US US TRANSVAGINAL from 09/19/2024 FINDINGS: Transvaginal sonographic images of the pelvis were obtained. From her last menstrual period she is 9weeks 5days. ZAYRA 07/18/2025 An intrauterine gestational sac is present with a pole with a crown-rump length of 2.56cm This correlates to a gestational age of 9weeks 3days. ZAYRA 07/20/2025 heart tones are present with an FHR of 170bpm. Yolk sac is noted. The yolk sac measures 5.0mm. The right ovary is seen and appears normal. The right ovary appears polycystic with multiple small peripheral follicles. There is a corpus luteum in the right ovary measuring 1.5 cm. The left ovary is seen and appears normal. The left ovary appears polycystic with multiple small peripheral follicles. There is no fluid in the cul-de-sac. IMPRESSION: 1. Viable embryo within the uterine cavity. The size and dates are congruent and the ZAYRA will remain 07/18/2025. 2. Both ovaries are seen and have a polycystic appearance. There is a corpus luteum in the right ovary. 3. No fluid in the cul-de-sac Dictated by: Saeid Vila MD 12/18/2024 16:01 Saeid Vila MD in [facility] 12/18/2024 16:01
== END 2024-12-18 23:59 | disposition home or self-care (01) ==
LOC: RAD 14:49
PROVIDERS: PCP Nurse Practitioner Obstetrics & Gynecology; Visit Provider Nurse Practitioner Obstetrics & Gynecology
DX: O26.841 Uterine size-date discrepancy, first trimester (principal); Z3A.09 9 weeks gestation of pregnancy
CPT/HCPCS: 76801

== ENCOUNTER 2024-12-24 16:27 | Outpatient (CLI) | payer MEDICAID, SELFPAY ==
[2024-12-24 16:59] LABS: Basophils % 0.2 % (0.1-2.0); Eosinophils # 0.1 Kmm3 (0.0-0.4); Eosinophils % 0.9 % (0.1-12.0); Hematocrit 36.7 % (37.0-47.0); Hemoglobin 12.3 g/dL (12.2-16.2); Immature Granulocytes # 0.03 10^3uL; Immature Granulocytes % 0.3 %; Lymphocytes # 1.8 K/mm3 (0.7-4.5); Lymphocytes % 20.5 % (10-50); Mean Corpuscular HGB Conc 33.5 g/dL (31.8-35.4); Mean Corpuscular Hemoglobin 28.7 pg (27.0-31.2); Mean Corpuscular Volume 85.7 fl (81-99); Mean Platelet Volume 9.7 fl (7.4-10.4); Monocytes # 0.5 K/mm3 (0.1-1.0); Monocytes % 5.9 % (1.7-9.3); Neutrophils # 6.4 K/mm3 (1.8-7.8); Neutrophils % 72.2 % (37.0-80.0); Nucleated Red Blood Cells # 0 10^3/uL; Nucleated Red Blood Cells % 0 %; Platelet Count 280 K/mm3 (142-424); Red Blood Count 4.28 M/mm3 (4.20-5.40); Red Cell Distribution Width 12.6 % (11.5-17.5); White Blood Count 8.8 K/mm3 (4.8-10.8)
[2024-12-24 18:48] LABS: HIV Combo NEGATIVE (Negative)
[2024-12-24 18:56] LABS: Hepatitis C Ab Qual. W/ RFX NEGATIVE (Negative)
[2024-12-24 23:24] LABS: RPR W/RFX Titers Nonreactive (Nonreactive)
[2024-12-25 05:27] LABS: Hepatitis B Surface Antigen Negative (Negative)
[2024-12-25 07:10] LABS: Rubella Antibodies, IgG 1.41 index (Immune >0.99)
== END 2024-12-24 23:59 | disposition home or self-care (01) ==
LOC: LAB 16:27
PROVIDERS: PCP Internal Medicine Adolescent Medicine; Visit Provider Nurse Practitioner Obstetrics & Gynecology
DX: O21.9 Vomiting of pregnancy, unspecified (principal); Z3A.10 10 weeks gestation of pregnancy
CPT/HCPCS: 36415; 85025; 86592; 86762; 86803; 86850; 87340; 87389

== ENCOUNTER 2025-03-01 10:21 | Outpatient (CLI) | payer MEDICAID, SELFPAY ==
--- OUTSIDE RECORDS SUMMARY | 2025-03-01 10:24 | XMS_ITS | Clinical Summary ---
Author Organization Healthcare Address [address] [place], [place] [id number] Care Team Providers Care Cloth Tearer Name Role Phone Taye Hernandez MD Primary Care Provider [phone] Allergies No known active allergies Family History Medical History Relation Name Comments Cervical cancer Mother Hypertension Mother Relation Name Status Comments Mother Social History Tobacco Use Types Packs/Day Years Used Date Smoking Tobacco: Never Alcohol Use Standard Drinks/Week Comments No 0 (1 standard drink = 0.6 oz pur e alcohol) Comments Unknown Sex and Gender Information Value Date Recorded Sex Assigned at Female 04/14/2023 10:27 AM EDT Legal Sex Female 8:39 PM EDT Gender Identity Female 04/14/2023 10:27 AM EDT Sexual Orientation Not on file Last Filed Vital Signs Vital Sign Reading Time Taken Comments Blood Pressure 108/75 04/14/2023 11:44 AM EDT Pulse 82 04/14/2023 11:44 AM EDT Temperature 36.5 C (97.7 F) 05/26/2018 9:22 AM EDT Respiratory Rate - - Oxygen Saturation - - Inhaled Oxygen Concentration - - Weight 66.5 kg (146 lb 9.7 oz) 04/14/2023 11:44 AM EDT Height 162.6 cm (5' 4 ) 04/14/2023 11:44 AM EDT Body Mass Index 25.16 04/14/2023 11:44 AM EDT Plan of Treatment Health Maintenance Due Date Last Done Comments [facility]-Depression Screening 1999 [facility]-HIV Screening 1999 [facility]-Hepatitis C Screening 1999 [facility]-/Child/Adol SDOH Screenings 1999 [facility]- SDOH Screenings 2017 [facility]-Adult SDOH Screenings 2017 HPV Vaccines (3 - 3-dose series) 05/25/2018 03/02/2018, 10/12/2017 [facility]-Hepatitis A Vaccines (2 of 2 - 2-dose series) 04/20/2019 10/18/2018, 03/02/2018 [facility]-Pap Smear 2020 [facility]-DTaP,Tdap,and Td Vaccines (7 - Td or Tdap) 04/02/2021 04/02/2011, 11/15/2003, 07/11/2000, Additional history exists [id number] Vaccine ( - 2023- season) 2024 [facility]-Influenza Vaccine (#1) 2025 05/17/2020, [facility]-Zoster Vaccines (1 of 2) 2049 04/02/2011, 03/17/2000 [facility]-Hepatitis B Vaccines Completed 000, 02/08/2000, 1999 [facility]-Pneumococcal Vaccine: Pediatrics (0 to 5 Years) and At-Risk Patients (6 to 49 Years) Aged Out 07/11/2000 No longer eligible based on patient's age to complete this topic [facility]-IPV Vaccines Completed 11/15/2003, , 1999, Additional history exists [facility]-Varicella Vaccines Completed 04/02/2011, 1999 [facility]-Obesity Intervention Completed 04/14/2023 [facility]-HIB Vaccines Aged Out No longer e ligible based on patient's age to complete this topic [facility]-Rotavirus Vaccines Aged Out No lo nger eligible based on patient's age to complete this topic Insurance [employer] Care Teams Cloth Tearer Relationship Specialty Start Date End Date Taye Hernandez MD [address] [place] [place] [id number] PCP - General Internal Medicine 04/14/23
--- NOTE | 2025-03-01 10:30 | US_ITS ---
PROCEDURE: US OB /MATERNAL DETAIL CLINICAL INDICATION: 20 wk anatomy scan; Schedule in 1 week COMPARISON: US US OB <= 14 WEEKS FETUS from 12/18/2024 FINDINGS: Transabdominal sonographic images of the pelvis were obtained. From her established due date she is 20 weeks 1 day. Single viable intrauterine gestation. Cephalic position. Placenta: Posteriorplacenta grade 1. There is an average amount of fluid. The cervix appears satisfactory. Closed and measuring 3.57 cm in length. Complete survey performed and was unremarkable on the submitted images as in PACS. No discrete anomalies identified on survey imaging by technologist. Active fetus. Three-vessel cord with satisfactory umbilical cord insertion. 4- chamber heart noted. Situs, aortic arch, LVOT, RVOT, three-vessel view appear normal. Survey of brain & ventricles Unremarkable. Cerebellum, thalamus, choroid plexus, cisterna magna appear normal. Face and neck survey unremarkable. Profile not visualized due to position, nasion, lips and nose appeared normal. Diaphragm and chest views unremarkable. Abdomen: Both kidneys noted and unremarkable. Stomach and bladder noted and satisfactory. Spine: Survey of the spine satisfactory with no anomalies identified nor imaged. Cervical, thoracic, lower spine appear normal. Both arms and legs noted. Amniotic Fluid: Adequate. MVP 3.26 cm Measurements: Average ultrasound age 20weeks 1day. Estimated due date by ultrasound age 1207/18/2025. Estimated weight 325g BPD = 20weeks 2days HC = 19weeks 6days AC = 19weeks 5days FL = 20weeks 3days Growth Percentile= 36 Heart Rate = 142bpm Cerebellum = 18weeks 5days Humerus = 20weeks 5days HC/AC is 1.2 FL/BPD is 0.7 FL/AC is 0.23 IMPRESSION: 1. Viable fetus in the cephalic presentation with a posterior placenta grade 1. 2. The fluid is within normal limits with an MVP 3.26 cm. 3. Anatomical scan appears normal. 4. The profile was not seen due to position and would suggest repeat scan in 2 weeks. 5. biometry is consistent with the dates. Dictated by: Saeid Vila MD 03/02/2025 06:30 Saeid Vila MD in [facility] 03/02/2025 06:30
== END 2025-03-01 23:59 | disposition home or self-care (01) ==
LOC: RAD 10:22
PROVIDERS: PCP Internal Medicine Adolescent Medicine; Visit Provider Nurse Practitioner Obstetrics & Gynecology
DX: Z34.02 Encounter for supervision of normal first pregnancy, second trimester (principal); Z3A.20 20 weeks gestation of pregnancy
CPT/HCPCS: 76811

== ENCOUNTER 2025-03-25 15:15 | Outpatient (CLI) | payer MEDICAID, SELFPAY ==
--- OUTSIDE RECORDS SUMMARY | 2025-03-25 15:17 | XMS_ITS | Clinical Summary ---
Author Organization Healthcare Address [address] [place], [place] [id number] Care Team Providers Care Clinical Reviewer Name Role Phone Taye Hernandez MD Primary Care Provider [phone] Allergies No known active allergies Family History [...] [facility]-HIV Screening 1999 [facility]-Hepatitis C Screening 1999 [facility]-Infant/Child/Adol SDOH Screenings 1999 [facility]- SDOH Screenings 2017 [facility]-Adult SDOH Screenings 2017 HPV Vaccines (3 - 3-dose series) 05/25/2018 03/02/2018, 10/12/2017 [facility]-Hepatitis A Vaccines (2 of 2 - 2-dose series) 04/20/2019 10/18/2018, 03/02/2018 [facility]-Pap Smear 2020 [facility]-DTaP,Tdap,and Td Vaccines (7 - Td or Tdap) 04/02/2021 04/02/2011, 11/15/2003, 07/11/2000, Additional history exists [id number] Vaccine ( - 2023- season) 2024 [facility]-Influenza [...] this topic Insurance [employer] Care Teams Clinical Reviewer Relationship Specialty Start Date End Date Taye Hernandez MD [address] [place] [address] [place] [id number] PCP - General Internal Medicine 04/14/23
--- NOTE | 2025-03-25 15:30 | US_ITS ---
PROCEDURE: US OB FOLLOW UP CLINICAL INDICATION: Repeat anatomy scan in 2wks for views COMPARISON: US US OB <= 14 WEEKS FETUS from 12/18/2024 US US OB /MATERNAL DETAIL from 03/01/2025 FINDINGS: Transabdominal sonographic images of the pelvis were obtained. The following parameters are obtained: From her established due date she is 23weeks 4days Viable fetus in the cephalic presentation with a posterior placenta grade 1. The cervix measures 4.15 cm heart rate: 144bpm bpm. Amniotic fluid: MVP 5.99 cm. No obvious anomalies evident. profile seen, stomach, bladder, kidneys, three-vessel cord, four chamber heart appear normal. profile is seen and appears normal today. IMPRESSION: 1. Viable fetus in the cephalic presentation with a posterior placenta grade 1. 2. The fluid is within normal limits with an MVP 5.99 cm. 3. Limited anatomical scan appears normal. 4. profile not well viewed on her 20 week anatomy scan is seen today and appears normal. Dictated by: Saeid Vila MD 03/25/2025 15:50 Saeid Vila MD in [facility] 03/25/2025 15:50
== END 2025-03-25 23:59 ==
LOC: RAD 15:15
PROVIDERS: PCP Internal Medicine Adolescent Medicine; Visit Provider Nurse Practitioner Obstetrics & Gynecology
DX: Z36.2 Encounter for other antenatal screening follow-up (principal); Z3A.23 23 weeks gestation of pregnancy
CPT/HCPCS: 76816

== ENCOUNTER 2025-04-24 09:46 | Outpatient (CLI) | payer MEDICAID, SELFPAY ==
--- OUTSIDE RECORDS SUMMARY | 2025-04-24 09:52 | XMS_ITS | Clinical Summary ---
Author Organization Healthcare Address [address] [place], [place] [address] Care Team Providers Care Tack Puller Name Role Phone Taye Hernandez MD Primary Care Provider [phone] Allergies No known active allergies Family History [...] 04/02/2021 04/02/2011, 11/15/2003, 07/11/2000, Additional history exists [id number] Vaccine (1 - season) 2025 [facility]-Influenza Vaccine (#1) 2025 05/17/2020, [facility]-Zoster Vaccines [...] this topic Insurance [employer] Care Teams Tack Puller Relationship Specialty Start Date End Date Taye Hernandez MD [address] [place] [address] [place] [id number] PCP - General Internal Medicine 04/14/23
[2025-04-24 11:08] LABS: Hematocrit 33.5 % (37.0-47.0); Hemoglobin 10.7 g/dL (12.2-16.2); Immature Granulocytes % 0.8 %; Mean Corpuscular HGB Conc 31.9 g/dL (31.8-35.4); Mean Corpuscular Hemoglobin 27.6 pg (27.0-31.2); Mean Corpuscular Volume 86.6 fl (81-99); Nucleated Red Blood Cells % 0 %; Platelet Count 276 K/mm3 (142-424); Red Blood Count 3.87 M/mm3 (4.20-5.40); Red Cell Distribution Width-SD 41.6 fL; White Blood Count 11.7 K/mm3 (4.8-10.8)
[2025-04-24 11:14] LABS: Glucose 1 Hour 107 mg/dL (74-100)
[2025-04-24 14:12] LABS: RPR W/RFX Titers Nonreactive (Nonreactive)
== END 2025-04-24 23:59 | disposition home or self-care (01) ==
LOC: LAB 09:46
PROVIDERS: PCP Internal Medicine Adolescent Medicine; Visit Provider Nurse Practitioner Obstetrics & Gynecology
DX: Z34.82 Encounter for supervision of other normal pregnancy, second trimester (principal); Z3A.00 Weeks of gestation of pregnancy not specified
CPT/HCPCS: 36415; 82947; 85025; 86592

== ENCOUNTER 2025-06-17 13:15 | Outpatient (CLI) | payer MEDICAID, SELFPAY ==
--- OUTSIDE RECORDS SUMMARY | 2025-06-17 13:21 | XMS_ITS | Clinical Summary ---
Author Organization Healthcare Address [address] [place], [place] [address] Care Team Providers Care Neon Sign Mechanic Name Role Phone Taye Hernandez MD Primary Care Provider [phone] Allergies No known active allergies Family History [...] 04/02/2021 04/02/2011, 11/15/2003, 07/11/2000, Additional history exists [id number] Vaccine (1 - season) 2025 [facility]-Influenza Vaccine [...] this topic Insurance [employer] Care Teams Neon Sign Mechanic Relationship Specialty Start Date End Date Taye Hernandez MD [address] [place] [address] [place] [id number] PCP - General Internal Medicine 04/14/23
--- NOTE | 2025-06-17 13:30 | US_ITS ---
PROCEDURE: US OB BIOPHYSICAL PROFILE CLINICAL INDICATION: LGA COMPARISON: US US OB <= 14 WEEKS FETUS from 12/18/2024 US US OB /MATERNAL DETAIL from 03/01/2025 US US OB FOLLOW UP from 03/25/2025 FINDINGS: Transabdominal sonographic images of the uterus were obtained. From her established due date she is 35weeks 4days. The following parameters are obtained: Viable Fetus in the cephalic presentation with a posterior placenta grade 2. Average ultrasound age is 37weeks 3days Estimated weight 3,274g, 7 lb 3 oz The cervix measures 4.44 cm in length. Measurements: heart Rate = 153bpm BPD = 37weeks 0 days, 88 percentile HC = 37weeks 3days, 62 percentile AC = 38weeks 3days, >98 percentile FL = 36weeks 5days, 70 percentile HC/AC is 0.95 FL/BPD is 0.78 FL/AC is 0.21 94 percentile Amniotic fluid index: 14.93cm, MVP 5.17 cm Qualitative AFV:2 Breathing movements: 2 Gross Body Movements: 2 Tone: 2 Biophysical profile score: 8 No obvious anomalies evident.Kidneys, bladder, stomach, four-chamber heart, three-vessel cord appear normal. IMPRESSION: 1. Viable fetus in the cephalic presentation with a posterior placenta grade 2. 2. The fluid is within normal limits with an amniotic fluid index 14.93 cm, MVP 5.17 cm. 3. Biophysical profile is 8/8 with good breathing movement and movement seen. 4. Fetus has accelerated growth with the abdominal circumference 3 weeks ahead. 5. Limited anatomical scan appears normal. Dictated by: Saeid Vila MD 06/17/2025 16:54 Saeid Vila MD in [facility] 06/17/2025 16:54
== END 2025-06-17 23:59 | disposition home or self-care (01) ==
LOC: RAD 13:16
PROVIDERS: PCP Internal Medicine Adolescent Medicine; Visit Provider Nurse Practitioner Obstetrics & Gynecology
DX: O36.63X0 Maternal care for excessive fetal growth, third trimester, not applicable or unspecified (principal); Z3A.35 35 weeks gestation of pregnancy
CPT/HCPCS: 76816; 76819

== ENCOUNTER 2025-06-18 13:30 | Outpatient (CLI) | payer MEDICAID, SELFPAY ==
--- OUTSIDE RECORDS SUMMARY | 2025-06-19 21:05 | XMS_ITS | Clinical Summary ---
Author Organization Healthcare Address [address] [place], [place] [id number] Care Team Providers Care Cake Winder Name Role Phone Taye Hernandez MD Primary Care Provider [phone] Allergies No known active allergies Family History [...] 04/02/2021 04/02/2011, 11/15/2003, 07/11/2000, Additional history exists [id number] Vaccine (1 - season) 2025 [facility]-Influenza Vaccine [...] this topic Insurance [employer] Care Teams Cake Winder Relationship Specialty Start Date End Date Taye Hernandez MD [address] [place] [address] [place] [id number] PCP - General Internal Medicine 04/14/23
== END 2025-06-18 23:59 | disposition home or self-care (01) ==
LOC: LAB.DROPOF 06-19 21:04
PROVIDERS: PCP Internal Medicine Adolescent Medicine; Visit Provider Nurse Practitioner Obstetrics & Gynecology
DX: Z34.83 Encounter for supervision of other normal pregnancy, third trimester (principal); Z3A.34 34 weeks gestation of pregnancy
CPT/HCPCS: 86403

== ENCOUNTER 2025-06-26 15:45 | Outpatient (CLI) | payer MEDICAID, SELFPAY ==
--- OUTSIDE RECORDS SUMMARY | 2025-06-26 15:48 | XMS_ITS | Clinical Summary ---
Author Organization Healthcare Address [address] [place], [place] [address] Care Team Providers Care Respiratory Care Practitioner Name Role Phone Taye Hernandez MD Primary Care Provider [phone] Allergies No known active allergies Family History [...] 04/02/2021 04/02/2011, 11/15/2003, 07/11/2000, Additional history exists [id number] Vaccine (1 - season) 2025 [facility]-Influenza Vaccine [...] this topic Insurance [employer] Care Teams Respiratory Care Practitioner Relationship Specialty Start Date End Date Taye Hernandez MD [address] [place] [address] [place] [id number] PCP - General Internal Medicine 04/14/23
[2025-06-26 16:24] LABS: Hematocrit 32.5 % (37.0-47.0); Hemoglobin 9.8 g/dL (12.2-16.2); Immature Granulocytes % 0.9 %; Mean Corpuscular HGB Conc 30.2 g/dL (31.8-35.4); Mean Corpuscular Hemoglobin 24.6 pg (27.0-31.2); Mean Corpuscular Volume 81.5 fl (81-99); Nucleated Red Blood Cells % 0 %; Platelet Count 293 K/mm3 (142-424); Red Blood Count 3.99 M/mm3 (4.20-5.40); Red Cell Distribution Width-SD 44.3 fL; White Blood Count 9.8 K/mm3 (4.8-10.8)
[2025-06-26 16:44] LABS: Activated Partial Thrombo Time 24.5 seconds (22.8-30.6); Fibrinogen 485 mg/dL (229.9-363.5); INR 0.96 (0.9-1.1); Prothrombin Time 10.7 seconds (10.1-12.5)
[2025-06-26 17:23] LABS: Alanine Aminotransferase 10 U/L (12-78); Anion Gap 7.5 mEq/L (5-15); Aspartate Amino Transferase 25 U/L (14-36); Blood Urea Nitrogen 3 mg/dl (7-17); Calcium 9.0 mg/dl (8.4-10.2); Carbon Dioxide 24 mmol/L (22.0-30.0); Chloride 104 mmol/L (98-107); Creatinine,Serum 0.50 mg/dl (0.52-1.04); Estimated Glomerular Filt Rate 149 ml/min (>60); GFR (African American) 180 ML/MIN (>60); Glucose 78 mg/dl (74-100); Potassium 4.5 mmoL/L (3.5-5.1); Sodium 131 mmol/L (136-145); Uric Acid 3.8 mg/dl (2.5-6.2)
[2025-06-26 17:43] LABS: NT Pro Brain Natriuretic Pep. 62.5 pg/mL (0-125)
== END 2025-06-26 23:59 | disposition home or self-care (01) ==
LOC: LAB 15:46
PROVIDERS: PCP Internal Medicine Adolescent Medicine; Visit Provider Nurse Practitioner Obstetrics & Gynecology
DX: Z34.82 Encounter for supervision of other normal pregnancy, second trimester (principal); Z3A.00 Weeks of gestation of pregnancy not specified
CPT/HCPCS: 36415; 80048; 83880; 84450; 84460; 84550; 85025; 85384; 85610; 85730

== ENCOUNTER 2025-07-10 04:45 | Inpatient (IN) | payer MEDICAID, SELFPAY ==
--- OUTSIDE RECORDS SUMMARY | 2025-07-10 04:49 | XMS_ITS | Clinical Summary ---
Author Organization Healthcare Address [address] [place], [place] [id number] Care Team Providers Care Mechanical Service Technician Name Role Phone Taye Hernandez MD Primary Care Provider [phone] Allergies No known active allergies Family History [...] 04/02/2021 04/02/2011, 11/15/2003, 07/11/2000, Additional history exists [id number] Vaccine (1 - 2024- season) 2025 [facility]-Influenza Vaccine (#1) 2025 05/17/2020, [facility]-Zoster Vaccines (1 of 2) 2049 04/02/2011, 03/17/2000 [facility]-Hepatitis B Vaccines Completed 2 000, 02/08/2000, 1999 [facility]-Pneumococcal Vaccine: Pediatrics (0 [...] this topic Insurance [employer] Care Teams Mechanical Service Technician Relationship Specialty Start Date End Date Taye Hernandez MD [address] [place] [address] [place] [id number] PCP - General Internal Medicine 04/14/23
[2025-07-10 04:51] VITALS: BMI 37.5
[2025-07-10 05:01] VITALS: BP 132/73; PULSE 91; RESP 18; TEMP 36.8; O2SAT 96; BMI 37.5
[2025-07-10 05:38] LABS: Hematocrit 30.6 % (37.0-47.0); Hemoglobin 9.5 g/dL (12.2-16.2); Immature Granulocytes % 0.9 %; Mean Corpuscular HGB Conc 31.0 g/dL (31.8-35.4); Mean Corpuscular Hemoglobin 24.4 pg (27.0-31.2); Mean Corpuscular Volume 78.5 fl (81-99); Nucleated Red Blood Cells % 0 %; Platelet Count 284 K/mm3 (142-424); Red Blood Count 3.90 M/mm3 (4.20-5.40); Red Cell Distribution Width-SD 44.5 fL; White Blood Count 12.2 K/mm3 (4.8-10.8)
[2025-07-10] MEDS: DEXTROSE 5%-LACTATED RINGERS 1,000 ML 125 ML IV ×2 (05:40→13:22)
[2025-07-10] MEDS: OXYTOCIN/RINGERS LACTATE 30 UNITS/500 ML BAG IV (05:41)
--- NOTE | 2025-07-10 07:25 | P.CONPHA_ITS ---
Pharmacy Intervention Comments: MEDICATION RECONCILIATION COMPLETED ON PATIENT USING EXTERNAL FILL HISTORY FROM PHARMACY AND LIST FROM [facility] OFFICE. -DOUGLAS ANDERSOND
--- NOTE | 2025-07-10 07:25 | HMH.PHAINT1 ---
Pharmacy Intervention Comments: MEDICATION RECONCILIATION COMPLETED ON PATIENT USING EXTERNAL FILL HISTORY FROM PHARMACY AND LIST FROM [facility] [facility] OFFICE. -DOUGLAS ANDERSOND
--- NOTE | 2025-07-10 09:30 | EXP.LABOR.NO ---
Labor Note Subjective: Date: 07/10/25 Time: 09:30 regular contraction Objective: NST:: Reactive Contractions:: every 2-3 minutes Cervical Dilation:: 3 Effacement:: 60% Station: -2 Membranes: artificially ruptured Comment:: I ruptured her membranes and there was clear fluid. Fetus: Monitoring?: Yes monitoring type:: External Assessment: Labor progressing?: Yes Cephalopelvic disproportion?: No Plan: Anesthesia for epidural?: No Continue to labor down?: Yes Plan for ?: No Continue to monitor?: Yes Start pushing?: No Comment:: The cervix is soft and 3 cm. There is been some effacement. Membranes were ruptured and there was clear fluid. We will expect a vaginal delivery.
--- NOTE | 2025-07-10 09:33 | P.HP_ITS ---
History of Present Illness *Admission Date: 07/10/25 *Reason for visit:: Term , large for gestational age baby. *History of present illness: She is a 25-year-old 5 para 2 aborta 2 who is 39 weeks gestational age. She had an ultrasound a couple of weeks ago that showed that the baby was 3 weeks ahead on its abdominal circumference and as a result of this we elected to induce her at term. She also has significant swelling in her hands, feet and face. O+ blood Rubella immune GBS negative PFSH PFSH Disclaimer: The information contained in this section may have been updated after the patient was seen, as this information can be updated by other users. Medical History Encounter for supervision of other normal , second trimester anemia Pelvic pain Vomiting during Anxiety Depression Surgical History Hx of appendectomy S/P dilation and curettage Hx of myringoplasty History of tonsillectomy and adenoidectomy Family History Diabetes Hyperlipidemia Heart attack Cancer Hypertension Asthma Social History Smoking Status: Current every day smoker tobacco type: e-cigarettes alcohol intake: never substance use type: denies use current occupational status: employed Travel in the last 8 weeks?: None housing: apartment marital status: single number of children: 1 do you feel safe at home: Yes victim of physical abuse: No victim of emotional abuse: No victim of sexual abuse: No Have you lived/traveled outside US in past 30 days?: No Contact w/someone who lives/traveled outside US past 30 days?: No Exposure to someone with infectious disease in past 14 days?: No Do you have a fever (greater than 100.4 F or 38 C)?: No Have you tested positive for COVID-19?: No Exposed to someone with COVID-19 in past 14 days?: No Do you have a sore throat?: No Do you have a cough?: No Do you have any weakness?: No Do you have any diarrhea?: No Are you experiencing any unusual bleeding?: No Do you have any muscle aches/pain?: No Do you have any abdominal pain?: No Are you experiencing loss of taste or smell?: No Other Medical History Have you received the Flu Vaccine for this season: No Have you received the Pneumonia Vaccine: No Review of Systems Review of Systems Review of systems:: pertinent systems reviewed and negative unless documented below Meds Home Medications and Allergies Home Medications ?Medication ?Instructions ?Recorded ?Confirmed ?Type escitalopram oxalate 20 mg tablet 20 mg PO DAILY 03/0107/10/25 History docusate sodium 100 mg capsule 100 mg PO DAILY #30 cap s 03/20/25 07/10/25 Rx (Colace) ferrous sulfate 325 mg (65 mg 325 mg PO DAILY #30 tabs 03/20/25 07/10/25 Rx iron) tablet vits no.126-ferrous fum 1 tab PO DAILY 07/10/25 History 28 mg iron-folic acid 800 mcg tablet (Classic ) New Prescriptions to Start Prescriptions: Allergies Allergy/AdvReac Type Severity Reaction Status Date / Time No Known Allergies Allergy Verified 07/08/25 13:44 Exam Data for Last 24 hours Vital signs and Labs for Last 24 Hours: Temp Pulse Resp BP Pulse Ox O2 Del Method 98.3 F 91 H 18 132/73 96 Room Air 07/10/25 05:01 07/10/25 05:01 07/10/25 05:01 07/10/25 05:01 07/10/25 05:01 07/10/25 05:01 Laboratory Results - last 24 hr 07/10/25 05:14: WBC 12.2 H, RBC 3.90 L, Hgb 9.5 L, Hct 30.6 L, MCV 78.5 L, MCH 24.4 L, MCHC 31.0 L, RDW 15.7, Plt Count 284, MPV 10.4, Neut % (Auto) 75.7, Lymph % (Auto) 13.9, [place] % (Auto) 8.1, Eos % (Auto) 1.2, Baso % (Auto) 0.2, Neut # (Auto) 9.2 H, Lymph # (Auto) 1.7, [place] # (Auto) 1.0, Eos # (Auto) 0.1, Baso # (Auto) 0.0, Blood Type O Positive, Antibody Screen Negative I & O for Last 24 hours: Intake & Output 11/23/25 11/24/25 11/25/25 11/26/25 11:59 11:59 11:59 11:59 Intake Total 15.0 / 15.0 Balance 15.0 / 15.0 Weight 226 lb Constitutional Constitutional: no acute distress *Routine HEENT Exam Head: Present normocephalic Eye: Present EOMI and PERRL ENT: Present mucous membranes moist *Routine Neck Exam Neck: Present supple; Absent lymphadenopathy *Routine Respiratory Exam Respiratory: Present CTA bilaterally *Routine Cardiovascular Exam Cardiovascular: Present RRR *Routine Abdominal Exam Abdominal: Present soft and normoactive bowel sounds; Absent tenderness *Routine Rectal Exam Rectal:: deferred *Routine Genitalia Exam Genitalia:: deferred *Routine Extremities Exam Extremities: Absent cyanosis, clubbing or edema *Routine Skin Exam Skin: Present warm; Absent rash *Routine Neurological Exam Neurological: Present alert and oriented X3 Assessment and Plan *Assessment and plan (1) Large for gestational age fetus affecting management of mother, antepartum: Status: Acute Qualifiers: Fetus number: single or unspecified fetus Qualified Code(s): O36.60X0 - Maternal care for excessive growth, unspecified trimester, not applicable or unspecified Category: Medical Code(s): O36.60X0 - Maternal care for excessive growth, unspecified trimester, not applicable or unspecified Plan 1. She is admitted for induction of labor at term. 2. She has been started on IV oxytocin and we will expect a vaginal delivery. She has had 2 previous vaginal deliveries.
[2025-07-10] MEDS: LACTATED RINGERS 1000ML 1,000 ML 500 ML IV (09:36)
[2025-07-10 10:17] LABS: Microscopic, Urine URINE MICROSCOPIC (MICROSCOPIC)
[2025-07-10 10:25] LABS: Bilirubin,Urine Negative (Negative); Color,Urine YELLOW (Yellow); Glucose,Urine (UA) Negative (Negative); Ketones,Urine Negative (Negative); Leukocyte Esterase,Urine 1+ (Negative); PH,Urine 5.5 (5.0-8.5); Protein,Urine Negative (Negative); Specific Gravity, Urine 1.020 (1.005-1.030); Urobilinogen,Urine 0.2 EU/dl (0.2)
[2025-07-10 10:46] LABS: Bacteria,Urine 3+ /lpf; Squamous Epithelial Cell,Urine 20-50 #/hpf (0-5)
--- NOTE | 2025-07-10 11:22 | P.PNANES_ITS ---
[facility] Disclaimer: The information contained in this section may have been updated after the patient was seen, as this information can be updated by other users. Medical History Encounter for supervision of other normal , second trimester anemia Pelvic pain Vomiting during Anxiety Depression Surgical History Hx of appendectomy S/P dilation and curettage Hx of myringoplasty History of tonsillectomy and adenoidectomy Family History Diabetes Hyperlipidemia Heart attack Cancer Hypertension Asthma Social History Smoking Status: Current every day smoker tobacco type: e-cigarettes alcohol intake: never substance use type: denies use current occupational status: employed Travel in the last 8 weeks?: None housing: apartment marital status: single number of children: 1 do you feel safe at home: Yes victim of physical abuse: No victim of emotional abuse: No victim of sexual abuse: No Have you lived/traveled outside US in past 30 days?: No Contact w/someone who lives/traveled outside US past 30 days?: No Exposure to someone with infectious disease in past 14 days?: No Do you have a fever (greater than 100.4 F or 38 C)?: No Have you tested positive for COVID-19?: No Exposed to someone with COVID-19 in past 14 days?: No Do you have a sore throat?: No Do you have a cough?: No Do you have any weakness?: No Do you have any diarrhea?: No Are you experiencing any unusual bleeding?: No Do you have any muscle aches/pain?: No Do you have any abdominal pain?: No Are you experiencing loss of taste or smell?: No [facility] Anesthesia Checklist Patient Identification Patient Identification: Arm Band Structural Data Admitted From: Home Planned Operative Procedure/s: Labor Epidural Consent for Planned Operative Procedure(s) Verified: Yes Verified Documents: Surgical Consent and History and Physical Additional verifications Anesthesia Reactions: No Neurological Assessment Level of Consciousness: Awake, Alert and Appropriate Anesthesia Plan Anesthesia Risk discussed: Yes Anesthesia Plan: Verified ASA Class: II Anesthesia Type: Epidural
--- NOTE | 2025-07-10 11:58 | EXP.LABOR.NO ---
Labor Note Subjective: Date: 07/10/25 Time: 11:58 regular contraction Objective: NST:: Reactive Contractions:: every 2-3 minutes Cervical Dilation:: 5 Effacement:: 100% Station: -2 Membranes: artificially ruptured Fetus: Monitoring?: Yes monitoring type:: External Assessment: Labor progressing?: Yes Cephalopelvic disproportion?: No Plan: Anesthesia for epidural?: Yes Continue to labor down?: Yes Plan for ?: No Continue to monitor?: Yes Start pushing?: No Comment:: She is progressing now and is 5 cm dilated. Baby's head is still a little high and we will hopefully allow this baby's head to come down. We will expect a vaginal delivery.
[2025-07-10 13:09] LABS: Microscopic, Urine URINE MICROSCOPIC (MICROSCOPIC)
[2025-07-10 13:10] LABS: Bilirubin,Urine Negative (Negative); Color,Urine YELLOW (Yellow); Glucose,Urine (UA) Negative (Negative); Ketones,Urine Negative (Negative); Leukocyte Esterase,Urine Negative (Negative); PH,Urine 6.0 (5.0-8.5); Protein,Urine Negative (Negative); Specific Gravity, Urine 1.025 (1.005-1.030); Urobilinogen,Urine 0.2 EU/dl (0.2)
[2025-07-10 13:21] LABS: Bacteria,Urine Trace /lpf; Mucus,Urine 1+ /lpf
--- NOTE | 2025-07-10 13:46 | EXP.LABOR.NO ---
Labor Note Subjective: Date: 07/10/25 Time: 13:46 regular contraction Objective: NST:: Reactive Contractions:: every 2-3 minutes Cervical Dilation:: 7 Effacement:: 100% Station: -1 Membranes: artificially ruptured Fetus: Monitoring?: Yes monitoring type:: External Assessment: Labor progressing?: Yes Cephalopelvic disproportion?: No Plan: Anesthesia for epidural?: Yes Continue to labor down?: Yes Plan for ?: No Continue to monitor?: Yes Start pushing?: No Comment:: She continues to do well. She has her epidural in place. She is denise every 2 to 3 minutes. Cervix is changes 7 cm and the head has come down a little bit. We will expect a vaginal delivery.
[2025-07-10 14:35] LABS: RPR W/RFX Titers Nonreactive (Nonreactive)
[2025-07-10] MEDS: OXYTOCIN/RINGERS LACTATE 30 UNITS/500 ML BAG 999 UNITS IV (15:01)
--- NOTE | 2025-07-10 15:33 | EXP.DN ---
Delivery Note Delivery Date:: 07/10/25 Delivery Time:: 14:58 Anesthesia Type: Epidural Was labor medically induced?: Yes Induction method: per pitocin protocol Gestational age (weeks): 39 delivered prior to 39 weeks?: No Infant Gender: Female at 1 minute: 6 at 5 minutes: 7 Delivery Procedure:: She is a 25-year-old 5 para 2 aborta 2 who is 39 weeks gestational age. She has significant edema in her feet, hands and face. She also was noted to have a large for gestational age with a abdominal circumference about 3 weeks ahead. As result of that we elected to induce for labor at term. She was started on IV oxytocin had her membranes ruptured and progressed under labor epidural to full dilation. She delivered spontaneously a liveborn female child at 2:58 PM in the afternoon of July 10, 2025. On deliver the head it was noted that the anterior shoulder was not delivering. I did not apply excessive pressure to the head and instead had the nurse apply suprapubic pressure. We also perform Elvia. These maneuvers easily released the anterior shoulder and the rest the infant's body the end delivered easily. We stimulated the baby for approximately 1 minute and the baby cried spontaneously. The oropharynx and nasopharynx were bulb suction. The baby continued to have decreased tone although it was breathing on its own. We elected to place the baby on the baby warmer. The nurses then assigned Apgars of 6 at 1 minute and 7 at 5 minutes. I then obtained cord blood. She received IV oxytocin and using gentle traction on the cord and countertraction on the fundus I was able to easily deliver the placenta intact 5 minutes after delivery. It had a normal three-vessel cord. There were no perineal or vaginal lacerations. She has O+ blood and was group B streptococcus negative. Her diesel bus mechanic is Dr. Hernandez. Estimated blood loss was approximately 100 cc. Placental Delivery Description: Spontaneous
[2025-07-10] MEDS: IBUPROFEN 400 MG TABLET 800 MG PO (17:49)
[2025-07-10] MEDS: ACETAMINOPHEN 500MG TAB 1000 MG PO (17:50)
[2025-07-10] MEDS: WITCH HAZEL 40 PADS/BOX 1 EACH TP (19:37)
[2025-07-10] MEDS: BENZOCAINE-MENTHOL SPRAY 56GM CAN TP (19:37)
[2025-07-10] MEDS: PRENATAL MULTIVITAMIN W/IRON 1 EACH PO (19:38)
[2025-07-10] MEDS: SENNA 8.6MG TABLET 8.6 MG PO (19:38)
[2025-07-11] MEDS: ACETAMINOPHEN 500MG TAB 1000 MG PO ×4 (04:26→23:28)
[2025-07-11] MEDS: IBUPROFEN 400 MG TABLET 800 MG PO ×3 (04:26→21:30)
[2025-07-11 05:34] LABS: Hematocrit 28.7 % (37.0-47.0); Hemoglobin 8.8 g/dL (12.2-16.2)
[2025-07-11 08:43] VITALS: BP 131/71; PULSE 82; RESP 17; TEMP 36.8; O2SAT 98
--- NOTE | 2025-07-11 14:46 | P.PN_ITS ---
Subjective *Date: 07/11/25 *Time: 14:46 Interval history: She is doing very well this morning. She is eating and drinking and ambulating. She is bottlefeeding. Her lochia is normal. Her hemoglobin started out at 9.4 and this morning is 8.8. She will take iron tablets when she gets home. She is otherwise feeling well. Medical Exam Vital signs and Labs for Last 24 Hours: Vital Signs Temp Pulse Resp BP Pulse Ox O2 Del Method 07/11/25 08:43 98.3 F 82 17 131/71 98 Room Air Intake and Output 07/11/25 07/11/25 07/11/25 03:59 11:59 19:59 Intake Total 250.25 / 2551.75 Balance 250.25 / 2401.75 Intake: Intake, Total IV Amount 250.25 / 2551.75 Oxytocin/Ringers Lactate 30 250.25 / 500.00 units In 500 ml @ 40 mls/hr IV .[id number] [facility] Rx#:[id number] Laboratory Results - last 24 hr 07/10/25 05:14: Blood Type O Positive, Antibody Screen Negative, Crossmatch (AHG) See Detail 07/10/25 16:36: Blood Type Confirm O Positive 07/11/25 05:03: Hgb 8.8 L, Hct 28.7 L I & O for Labs for Last 24 Hours: Intake & Output 07/09/25 07/10/25 07/11/25 07/12/25 11:59 11:59 11:59 11:59 Intake Total 15.0 / 1015.0 2551.75 / 2551.75 Output Total 150 / 150 Balance 15.0 / 1015.0 2401.75 / 2401.75 Weight 226 lb Head: Present atraumatic and normocephalic Neck: Present normal inspection Respiratory: Absent accessory muscle use Rectal (female): Present deferred (female): Present deferred Assessment and Plan *Assessment and plan (1) Large for gestational age fetus affecting management of mother, antepartum: Status: Acute Qualifiers: Fetus number: single or unspecified fetus Qualified Code(s): O36.60X0 - Maternal care for excessive growth, unspecified trimester, not applicable or unspecified Category: Medical Code(s): O36.60X0 - Maternal care for excessive growth, unspecified trimester, not applicable or unspecified (2) anemia: Status: Acute Category: Medical Code(s): O90.81 - Anemia of the puerperium (3) Normal delivery: Status: Acute Category: Medical Code(s): O80 - Encounter for full-term uncomplicated delivery Plan 1.. She is doing very well today. She is eating and drinking and ambulating. 2. She is anemic and we will start her on iron tomorrow when she goes home. 3. Will plan to send her home tomorrow.
[2025-07-11] MEDS: PRENATAL MULTIVITAMIN W/IRON 1 EACH PO (18:05)
[2025-07-11 19:50] VITALS: BP 148/86; PULSE 74; RESP 16; TEMP 36.9; O2SAT 98
[2025-07-11 21:30] VITALS: BP 135/88; PULSE 90; RESP 16
[2025-07-11] MEDS: HYDROCORTISONE 2.5% CREAM 28GM TUBE TP (22:04)
[2025-07-12] MEDS: IBUPROFEN 400 MG TABLET 800 MG PO (05:40)
[2025-07-12 05:41] VITALS: BP 125/71; PULSE 69; RESP 18; TEMP 37.1; O2SAT 98
[2025-07-12] MEDS: ACETAMINOPHEN 500MG TAB 1000 MG PO (05:41)
--- NOTE | 2025-07-12 09:21 | P.DS_ITS ---
General Admission date:: 07/10/25 Discharge date: 07/12/25 HPI HPI HPI: She is a 25-year-old 5 para 2 aborta 2 who is 39 weeks gestational age. She had an ultrasound a couple of weeks ago that showed that the baby was 3 weeks ahead on its abdominal circumference and as a result of this we elected to induce her at term. She also has significant swelling in her hands, feet and face. O+ blood Rubella immune GBS negative Hospital Course Hospital Course Hospital Course: She was started on IV oxytocin had her membranes ruptured and delivered spontaneously a liveborn female child in the afternoon of July 10, 2025. The baby had Apgars of 6 at 1 minute and 7 at 5 minutes. She weighed 8 pounds 3 ounces. Patient has done well and has remained afebrile throughout her hospitalization. She is eating and drinking and ambulating. She is bottlefeeding. She has low hemoglobin at 8.8 and started out at 9.4. We will start her on iron tablets. She will be discharged home today to follow-up with me in approximately 2 weeks time. She will continue with her vitamins. She is just taking [id number] analgesics. Her condition on discharge is stable and improved. The baby will stay an extra day because its bilirubin is elevated and the baby is under the bili lights.. Exam Data for Last 24 hours Vital signs and Labs for Last 24 Hours: Temp Pulse Resp BP Pulse Ox O2 Del Method 98.8 F 69 18 125/71 98 Room Air 07/12/25 05:41 07/12/25 05:41 07/12/25 05:41 07/12/25 05:41 07/12/25 05:41 07/12/25 05:41 I & O for Last 24 hours: Intake & Output 07/09/25 07/10/25 07/11/25 07/12/25 11:59 11:59 11:59 11:59 Intake Total 15.0 / 1015.0 2551.75 / 2551.75 Output Total 150 / 150 Balance 15.0 / 1015.0 2401.75 / 2401.75 Weight 226 lb Microbiology Reports for the Last 24 Hours: Microbiology 07/10/25 04:58 Urine,Clean Catch Urine Culture - Final Multiple organisms, suggests contamination. Constitutional Constitutional: no acute distress *Routine HEENT Exam Head: Present normocephalic *Routine Respiratory Exam Respiratory: Present normal respiratory effort; Absent accessory muscle use DS: Diagnosis Discharge Diagnosis (1) Large for gestational age fetus affecting management of mother, antepartum: Status: Acute Code(s): O36.60X0 - Maternal care for excessive growth, unspecified trimester, not applicable or unspecified Qualifiers: Fetus number: single or unspecified fetus Qualified Code(s): O36.60X0 - Maternal care for excessive growth, unspecified trimester, not applicable or unspecified (2) anemia: Status: Acute Code(s): O90.81 - Anemia of the puerperium (3) Normal delivery: Status: Acute Code(s): O80 - Encounter for full-term uncomplicated delivery Meds Home Medications and Allergies Home Medications ?Medication ?Instructions ?Recorded ?Confirmed ?Type escitalopram oxalate 20 mg tablet 20 mg PO DAILY 03/0107/10/25 History docusate sodium 100 mg capsule 100 mg PO DAILY #30 cap s 03/20/25 07/10/25 Rx (Colace) ferrous sulfate 325 mg (65 mg 325 mg PO DAILY #30 tabs 03/20/25 07/10/25 Rx iron) tablet vits no.126-ferrous fum 1 tab PO DAILY 07/10/25 History 28 mg iron-folic acid 800 mcg tablet (Classic ) ferrous sulfate 325 mg (65 mg 325 mg PO BID #60 tabs 1 09/11/24 Rx iron) tablet (Iron (ferrous sulfate)) New Prescriptions to Start Prescriptions: ferrous sulfate [Iron (ferrous sulfate)] Saeid Vila Allergies Allergy/AdvReac Type Severity Reaction Status Date / Time No Known Allergies Allergy Verified 07/08/25 13:44 Discharge Plan Disposition Patient Disposition: Home, Self-Care Discharge Order Discharge Orders: Discharge Order (Routine); Ordered 07/12/25 Ordered By: Saeid Vila Follow up Plan Follow up with: Saeid Vila MD [Staff Physician, CUSTOMER ACCOUNT MANAGER] - Enter time for follow up Prescriptions/Medication Reconciliation: New ferrous sulfate [Iron (ferrous sulfate)] 325 mg (65 mg iron) Tablet 325 mg PO BID Qty: 60 1RF Continued ferrous sulfate 325 mg (65 mg iron) tablet 325 mg PO DAILY Qty: 30 5RF docusate sodium [Colace] 100 mg capsule 100 mg PO DAILY Qty: 30 5RF escitalopram oxalate 20 mg tablet 20 mg PO DAILY Patient Comments: TAKE 1 TABLET BY MOUTH EVERY DAY FOR 90 DAYS Classic 28 mg iron- 800 mcg tablet 1 tab PO DAILY Problem Reconciliation Problems Reviewed?: Yes Patient Discharge Instructions ACTIVITY: No heavy lifting Patient Instructions: Depression, Hemorrhage, DI for Labor and Delivery, Vaginal , DI for Pre-eclampsia, [facility] Post Discharge Instructions Print Language: Portuguese Providers Primary Care Provider: Taye Hernandez Admit Provider: Saeid Vila Attending Provider: Saeid Vila
== END 2025-07-12 10:05 | disposition home or self-care (01) | DRG 807 ==
PROVIDERS: Admitting Provider Nurse Practitioner Obstetrics & Gynecology; PCP Internal Medicine Adolescent Medicine; Visit Provider Nurse Practitioner Obstetrics & Gynecology
DX: O36.63X0 Maternal care for excessive fetal growth, third trimester, not applicable or unspecified (principal); Z37.0 Single live birth; Z3A.39 39 weeks gestation of pregnancy; O90.81 Anemia of the puerperium; O99.334 Smoking (tobacco) complicating childbirth; F17.290 Nicotine dependence, other tobacco product, uncomplicated; Z79.899 Other long term (current) drug therapy; Z23 Encounter for immunization
CPT/HCPCS: 36415; 51702; 59025; 81001; 85014; 85018; 85025; 86592; 86850; 87086; J7120; J7121